=== PATIENT | male | born 1950 | race Two or more races ===

== ENCOUNTER 2016-07-08 06:22 | Day surgery (SDC) | payer MEDICAID ==
[~2016-07-08 06:22] MED LIST: Sodium Chloride 0.9% 1,000 ML IV SCH; Sodium Chloride 0.9% 10 ML Syringe FLUSH PRN; Sodium Chloride 0.9% 2.5 ML Syringe FLUSH PRN; ceFAZolin 1 GM in Premix Bag 1 BAG IV ONE
--- NOTE | 2016-07-08 06:56 | PCM.PREANE ---
Preanesthetic Assessment - Anesthesia/Transfusion/Family Hx Anesthesia History: Prior Anesthesia Without Reaction Family History of Anesthesia Reaction: No Transfusion History: No Prior Transfusion(s) Intubation History: Unknown - Review of Systems General: No Symptoms Pulmonary: No Symptoms Cardiovascular: No Symptoms Gastrointestinal: No symptoms Neurological: No Symptoms Other: Reports: None - Physical Assessment O2 Sat by Pulse Oximetry: 95 Respiratory Rate: 16 Vital Signs: Last Vital Signs Temp 37.0 C 07/08/16 06:42 Pulse 73 07/08/16 06:42 Resp 16 07/08/16 06:42 BP 155/76 H 07/08/16 06:42 Pulse Ox 95 07/08/16 06:42 Height: 1.7 m Weight: 91.626 kg ASA Class: 3 Mental Status: Alert & Oriented x3 Airway Class: Mallampati = 1 Dentition: Reports: Normal Dentition Thyro-Mental Finger Breadths: 3 Mouth Opening Finger Breadths: 3 ROM/Head Extension: Full Lungs: Clear to auscultation, Normal respiratory effort Cardiovascular: Regular Rate, Regular Rhythm - Allergies Allergies/Adverse Reactions: Allergies Allergy/AdvReac Type Severity Reaction Status Date / Time No Known Allergies Allergy Verified 07/03/16 14:46 - Blood Blood Available: No - Anesthesia Plan Pre-Op Medication Ordered: None - Acknowledgements Anesthesia Type Planned: MAC Pt an Appropriate Candidate for the Planned Anesthesia: Yes Alternatives and Risks of Anesthesia Discussed w Pt/Guardian: Yes Pt/Guardian Understands and Agrees with Anesthesia Plan: Yes PreAnesthesia Questionnaire Other HEENT History: wears glasses Cardiovascular History: Reports: Hypertension Respiratory History: Reports: None Gastrointestinal History: Reports: None Genitourinary History: Reports: Acute Renal Failure, Chronic Renal Insuffiency ( ESRD, using mature left arm brachio-cephalic fistula recently- here for removal of dialysis cath.) Musculoskeletal History: Reports: Fracture Other Musculoskeletal History: hx of fx right foot Neurological History: Reports: None Psychiatric History: Reports: None Endocrine/Metabolic History: Reports: Diabetes, Type I, Obesity/BMI 30+ Hematologic History: Reports: None Immunologic History: Reports: None Oncologic (Cancer) History: Reports: None Dermatologic History: Reports: None - Infectious Disease History Infectious Disease History: Reports: Chicken Pox, Mumps - Past Surgical History Head Surgeries/Procedures: Reports: None HEENT Surgical History: Reports: None Cardiovascular Surgical History: Reports: Other (See Below) Other Cardiovascular Surgeries/Procedures: Insertion of dialysis cathete and AV Shunt Respiratory Surgical History: Reports: None GI Surgical History: Reports: Appendectomy Male Surgical History: Reports: None Endocrine Surgical History: Reports: None Neurological Surgical History: Reports: None Musculoskeletal Surgical History: Reports: Shoulder Surgery Other Musculoskeletal Surgeries/Procedures:: right RTCR Oncologic Surgical History: Reports: None - SUBSTANCE USE Smoking Status *Q: Never Smoker Recreational Drug Use History: No - HOME MEDS Home Medications: Home Meds Insulin Aspart [NovoLOG] 12 units SQ ASDIRECTED 11/02/15 [History] Metoprolol Succinate [Toprol XL] 50 mg PO BID 11/02/15 [History] amLODIPine [Norvasc] 10 mg PO DAILY 11/02/15 [History] cloNIDine [Catapres] 1 tab PO BID 11/02/15 [History] Sevelamer Carbonate [Renvela] 1,600 mg PO TIDMEALS 07/03/16 [History] Tresiba Flex Touch SQ ASDIRECTED 07/03/16 [History] Zolpidem Tartrate 5 mg PO BEDTIME PRN 07/03/16 [History] - CURRENT (IN HOUSE) MEDS Current Meds: Current Medications Sodium Chloride (Normal Saline) 1,000 mls @ 75 mls/hr IV ASDIRECTED MARITA Sodium Chloride (Saline Flush) 10 ml FLUSH ASDIRECTED PRN PRN Reason: Keep Vein Open Sodium Chloride (Saline Flush) 2.5 ml FLUSH ASDIRECTED PRN PRN Reason: Keep Vein Open Discontinued Medications Cefazolin Sodium/Dextrose 1 gm (/ Premix) 50 mls @ 100 mls/hr IV ONETIME ONE Stop: 07/07/16 12:39
[2016-07-08] MEDS ORDERED: Propofol 200 MG/20 ML SDV ONE (07:18)
[2016-07-08] MEDS ORDERED: fentaNYL 100 MCG/2 ML SDV ONE (07:19)
[2016-07-08] MEDS ORDERED: Midazolam 1 MG/ML 2 ML SDV ONE (07:19)
[2016-07-08] MEDS ORDERED: Bupivacaine 0.5% 10 ML SDV ONE (07:20)
[2016-07-08] MEDS ORDERED: Lidocaine 1% 20 ML MDV ONE (07:20)
[2016-07-08] MEDS ORDERED: Dextrose 5% in Water 500 ML IV SCH (07:30)
--- NOTE | 2016-07-08 08:35 | PCM.OPNOTE ---
- General Post-Op/Procedure Note Date of Surgery/Procedure: 07/08/16 Operative Procedure(s): RIJ dialysis catheter removal Findings: RIJ dialysis catheter Pre Op Diagnosis: ESRD Post-Op Diagnosis: ESRD Anesthesia Technique: Local, MAC Primary Surgeon: Caroline Beatty EBL in mLs: 5 Condition: Good
[2016-07-08 09:16] VITALS: BP 136/70
--- NOTE | 2016-07-08 09:35 | PCM48HPAN ---
Post Anesthesia Note - EVALUATION WITHIN 48HRS OF ANESTHETIC Vital Signs in Normal Range: Yes Patient Participated in Evaluation: Yes Respiratory Function Stable: Yes Airway Patent: Yes Cardiovascular Function Stable: Yes Hydration Status Stable: Yes Pain Control Satisfactory: Yes Nausea and Vomiting Control Satisfactory: Yes Mental Status Recovered: Yes - COMMENTS/OBSERVATIONS Free Text/Narrative:: No anesthesia problems. Patient skipped recovery room postoperative care phase.
--- NOTE | 2016-07-08 12:38 | OR ---
SURGEON: KAITLIN DUMONT MD DATE OF PROCEDURE: 07/08/2016 PREOPERATIVE DIAGNOSIS: End-stage renal disease. POSTOPERATIVE DIAGNOSIS: End-stage renal disease. PROCEDURE PERFORMED: Right internal jugular dialysis catheter removal. ANESTHESIA: MAC, local. ESTIMATED BLOOD LOSS: 5 mL. FINDINGS: Intact right internal jugular dialysis catheter. COMPLICATIONS: None. INDICATIONS: The patient is a 65-year-old male with type 2 diabetes, and end-stage renal disease. He had previously had a right internal jugular dialysis catheter placed due to the need for dialysis access in an urgent setting. The patient now has a fistula that is working properly and no longer needs a dialysis catheter. The patient and I discussed the removal of this catheter in the operating room. We discussed the procedure, expected perioperative course as well as the risks including bleeding, infection, or damage to surrounding structures. The patient verbalized understanding and wishes to proceed. PROCEDURE IN DETAIL: The patient was brought to the operating room and placed on the OR table in the supine position. A time-out was completed verifying the patient's name, age, date of , allergies, and procedure to be performed. Monitored anesthesia care was induced. The right chest and neck were prepped and draped in usual standard fashion. The area around the catheter exit site on the chest wall was anesthetized with 1% lidocaine plain and 0.5% Marcaine plain. A 1 cm incision was made using a Metzenbaum scissors on the skin overlying the catheter. This allowed me to dissect down to the level of the cuff. The cuff had a thick scar capsule around it. Using sharp and blunt dissection, I was able to free this scar tissue up to mobilize the catheter. Gentle steady pressure was then applied to the catheter once it was free and the catheter was pulled out of the patient. Pressure was held at the right internal jugular vein insertion site for 5 minutes. The catheter was sent to pathology labeled as dialysis catheter. After 5 minutes, I likely able to pressure and no bleeding was noted. I debrided the edges of the wound sharply with the Metzenbaum scissors and hemostasis was achieved at the catheter site on the chest wall using cautery. The wound was packed with 0.25 inch iodoform gauze and 4x4s placed over the top. The sterile dressings were applied. All counts were complete and correct at the end of the case. The patient was taken to the PACU in stable condition. SAIRA / ONEAL DICKEY: 07/08/2016 08:33:34 /[id number]
[2016-07-08] MEDS ORDERED: fentaNYL 100 MCG/2 ML SDV IVPUSH PRN (13:25)
== END 2016-07-08 09:25 | disposition home or self-care (01) ==
LOC: MW.SDS 06:22
PROVIDERS: ATTEND Surgery
DX: E11.22 Type 2 diabetes mellitus with diabetic chronic kidney disease (principal); N18.6 End stage renal disease; Z99.2 Dependence on renal dialysis; Z79.899 Other long term (current) drug therapy; Z79.4 Long term (current) use of insulin
CPT/HCPCS: 36589; 82962; J0690; J2250; J3010; 00400; 88300; J2704

== ENCOUNTER 2016-08-06 06:43 | Emergency (ER) | payer MEDICAID ==
[2016-08-06] MEDS ORDERED: Sodium Chloride 0.9% 10 ML Syringe FLUSH PRN (07:02)
[2016-08-06] MEDS ORDERED: Aspirin 81 MG Tab.Chew PO ONE (07:02)
[2016-08-06] MEDS ORDERED: Sodium Chloride 0.9% 2.5 ML Syringe FLUSH PRN (07:02)
--- NOTE | 2016-08-06 07:05 | EDM.PDOC ---
ED HPI GENERAL MEDICAL PROBLEM - General Chief Complaint: Chest Pain Stated Complaint: CHEST PAINS Time Seen by Provider: 08/06/16 07:00 - History of Present Illness INITIAL COMMENTS - FREE TEXT/NARRATIVE: HISTORY AND PHYSICAL: History of present illness: The patient is a 65-year-old male with a history of hypertension diabetes and chronic renal failure who is on dialysis and does his dialysis Wednesday and Wednesday via a fistula in his left upper arm and presents with complaints of midsternal chest pain that started last evening. Patient states that he presented to dialysis and told them he was having chest pain and they referred him to the ER. The patient says he has a normal day yesterday with no systemic complaints and the discomfort started when he was at home trying to go to sleep. He was restless all night due to the discomfort and he describes it as a pressure pain midsternal nonradiating and not associated with diaphoresis shortness of breath nausea or abdominal pain. He has never had this discomfort before has no cardiac disease he is aware of. Is no social or family history. He did not taken medications prior to coming to the ER. He currently rates it as a 6/10 here in the ED and again it is nonradiating and midsternal pressure. The patient denies any upper respiratory symptoms and no recent trauma to the area. Please note that the patient did not do his dialysis run today as scheduled due to referral to the ED for chest pain. Review of systems: As per history of present illness and below otherwise all systems reviewed and negative. Past medical history: As per history of present illness and as reviewed below otherwise noncontributory. Surgical history: As per history of present illness and as reviewed below otherwise noncontributory. Social history: No reported history of drug or alcohol abuse. Family history: As per history of present illness and as reviewed below otherwise noncontributory. Physical exam: Gen.: Well-developed overweight male who is nontoxic and vital signs are noted by me. Speaking clearly and easily in the ED with no distress HEENT: Atraumatic, normocephalic, pupils reactive, negative for conjunctival pallor or scleral icterus, mucous membranes moist, throat clear, neck supple, nontender, trachea midline. Lungs: Clear to auscultation, breath sounds equal bilaterally, chest with tenderness in the midsternal area on palpation but no defects deformities or crepitus Heart: S1S2, regular, negative for clicks, rubs, or JVD. Abdomen: Soft, nondistended, nontender. Negative for masses or hepatosplenomegaly. Negative for costovertebral tenderness. Pelvis: Stable nontender. Genitourinary: Deferred. Rectal: Deferred. Extremities: Atraumatic, negative for cords or calf pain. Neurovascular unremarkable. The patient has a fistula in the left upper arm with a positive thrill. There is no pedal edema or leg asymmetry Neuro: Awake, alert, oriented. Cranial nerves II through XII unremarkable. Cerebellum unremarkable. Motor and sensory unremarkable throughout. Exam nonfocal. Diagnostics: EKG x 2 CBC CMP INR troponin x 2 chest x-ray Therapeutics: IV O2 monitor aspirin sublingual nitroglycerin and Nitropaste, morphine Toradol DuoNeb After nitroglycerin sublingual 3 the patient tells me that the pain is a 5/10 when earlier was a 6/10. He told nursing that when he arrived the pain was an 8/ 10 we'll proceed with trying morphine and Toradol and reevaluate Nursing felt that the patient was having some discomfort with taking a deep breath so a duo neb was given. Patient does state that when I palpate the entire anterior chest wall there is discomfort and reproduces some of the pressure pain that he is experiencing. The patient is vague about his pain scale both with nursing and me and it is difficult to assess this. He is aware that we need to transfer him due to his need for dialysis to [facility] as we are unable to do inpatient dialysis and he is comfortable with that plan. 0818: I discussed the case with Dr. Villalta at [facility] who accepts the patient for transfer. He is aware that the patient is being transferred because he needs dialysis which we cannot perform. I have repeated an EKG and it is unchanged from prior and I will repeat a second troponin prior to the patient's departure. I have discussed the patient's vagueness with his chest pain with Dr. Villalta and have specifically discussed with him medications for transfer and he does not want me to start a nitro drip and wants only the Nitropaste that I have placed. I discussed again with the patient the need for transfer and he is accepting of this. Currently at my discussion with him he says that his pain is barely there and he is able to breathe much better and feels significantly improved from when he came in. Again he is very vague but I feel comfortable with this care plan for transfer. Impression: Chest pain rule out acute coronary syndrome, chronic renal failure on hemodialysis Definitive disposition and diagnosis as appropriate pending reevaluation and review of above. Chest Pain Score (Numeric/FACES): 7 - Related Data Allergies Allergy/AdvReac Type Severity Reaction Status Date / Time No Known Allergies Allergy Verified 08/06/16 06:53 Home Meds: Home Meds Insulin Aspart [NovoLOG] 12 units SQ ASDIRECTED 11/02/15 [History] Metoprolol Succinate [Toprol XL] 50 mg PO BID 11/02/15 [History] amLODIPine [Norvasc] 10 mg PO DAILY 11/02/15 [History] cloNIDine [Catapres] 0.1 mg PO BID 11/02/15 [History] Tresiba Flex Touch 40 units SQ BEDTIME 07/03/16 [History] Past Medical History - Past Health History Medical/Surgical History: Denies Medical/Surgical History Other HEENT History: wears glasses Cardiovascular History: Reports: Hypertension Respiratory History: Reports: None Gastrointestinal History: Reports: None Genitourinary History: Reports: Acute Renal Failure, Chronic Renal Insuffiency Musculoskeletal History: Reports: Fracture Other Musculoskeletal History: hx of fx right foot Neurological History: Reports: None Psychiatric History: Reports: None Endocrine/Metabolic History: Reports: Diabetes, Type I, Obesity/BMI 30+ Hematologic History: Reports: None Immunologic History: Reports: None Oncologic (Cancer) History: Reports: None Dermatologic History: Reports: None - Infectious Disease History Infectious Disease History: Reports: Chicken Pox, Mumps - Past Surgical History Head Surgeries/Procedures: Reports: None HEENT Surgical History: Reports: None Cardiovascular Surgical History: Reports: Other (See Below) Other Cardiovascular Surgeries/Procedures: Insertion of dialysis cathete and AV Shunt Respiratory Surgical History: Reports: None GI Surgical History: Reports: Appendectomy Male Surgical History: Reports: None Endocrine Surgical History: Reports: None Neurological Surgical History: Reports: None Musculoskeletal Surgical History: Reports: Shoulder Surgery Other Musculoskeletal Surgeries/Procedures:: right RTCR Oncologic Surgical History: Reports: None Social & Family History - Family History Family Medical History: Noncontributory - Tobacco Use Smoking Status *Q: Never Smoker Second Hand Smoke Exposure: No - Caffeine Use Caffeine Use: Reports: None - Recreational Drug Use Recreational Drug Use: No Drug Use in Last 12 Months: No ED ROS GENERAL - Review of Systems Review Of Systems: ROS reveals no pertinent complaints other than HPI. ED EXAM, GENERAL - Physical Exam Exam: See Below (See dictation) Course - Vital Signs Last Recorded V/S: Last Vital Signs Temp 36.4 C 08/06/16 07:56 Pulse 66 08/06/16 07:56 Resp 22 H 08/06/16 07:56 BP 146/81 H 08/06/16 07:56 Pulse Ox 98 08/06/16 07:56 - Orders/Labs/Meds Orders: Active Orders 24 hr Category Date Time Status Cardiac Monitoring [RC] . DIRECTED Care 08/06/16 07:01 Active EKG 12 Lead [EKG Documentation Completion] [RC] STAT Care 08/06/16 06:54 Active EKG Documentation Completion [RC] STAT Care 08/06/16 08:16 Active Oxygen Therapy, ED [RC] ASDIRECTED Care 08/06/16 07:01 Active Pulse Oximetry [RC] ASDIRECTED Care 08/06/16 07:01 Active RT Aerosol Therapy [RC] ASDIRECTED Care 08/06/16 07:51 Active Chest 1V Frontal [CR] Stat Exams 08/06/16 07:02 Taken Sodium Chloride 0.9% [Saline Flush] Med 08/06/16 07:02 Active 10 ml FLUSH ASDIRECTED PRN Sodium Chloride 0.9% [Saline Flush] Med 08/06/16 07:02 Active 2.5 ml FLUSH ASDIRECTED PRN Saline Lock Insert [OM.PC] Stat Oth 08/06/16 07:01 Ordered Medication Orders Sodium Chloride (Saline Flush) 10 ml FLUSH ASDIRECTED PRN PRN Reason: Keep Vein Open Sodium Chloride (Saline Flush) 2.5 ml FLUSH ASDIRECTED PRN PRN Reason: Keep Vein Open Labs: Laboratory Tests 08/06/16 08/06/16 08/06/16 Range/Units 06:50 06:50 06:50 WBC 10.05 (4.0-11.0) K/uL RBC 3.19 L (4.50-5.90) M/uL Hgb 9.8 L (13.0-17.0) g/dL Hct 29.0 L (38.0-50.0) % MCV 90.9 (80.0-98.0) fL MCH 30.7 (27.0-32.0) pg MCHC 33.8 (31.0-37.0) g/dL RDW Std Deviation 45.0 (28.0-62.0) fl RDW Coeff of Robert 14 (11.0-15.0) % Plt Count 233 (150-400) K/uL MPV 10.40 (7.40-12.00) fL Neut % (Auto) 69.4 (48.0-80.0) % Lymph % (Auto) 17.1 (16.0-40.0) % [place] % (Auto) 9.5 (0.0-15.0) % Eos % (Auto) 3.4 (0.0-7.0) % Baso % (Auto) 0.6 (0.0-1.5) % Neut # (Auto) 7.0 H (1.4-5.7) K/uL Lymph # (Auto) 1.7 (0.6-2.4) K/uL [place] # (Auto) 1.0 H (0.0-0.8) K/uL Eos # (Auto) 0.3 (0.0-0.7) K/uL Baso # (Auto) 0.1 (0.0-0.1) K/uL Nucleated RBC % 0.0 /100WBC Nucleated RBCs # 0 K/uL INR 1.05 (0.86-1.11) Sodium 142 (136-146) mmol/L Potassium 5.1 (3.5-5.1) mmol/L Chloride 107 (98-110) mmol/L Carbon Dioxide 22 (21-31) mmol/L BUN 54 H (6.0-23.0) mg/dL Creatinine 10.8 H (0.6-1.5) mg/dL Est Cr Clr Drug Dosing 6.55 mL/min Estimated GFR (MDRD) 4.8 ml/min Glucose 78 (60-110) mg/dL Calcium 7.9 L (8.8-10.8) mg/dL Total Bilirubin 0.5 (0.1-1.5) mg/dL AST 10 (5-40) IU/L ALT 8 (8-54) IU/L Alkaline Phosphatase 72 (40-150) Troponin I (0.0-0.29) NG/ML Total Protein 6.5 (6.0-8.0) g/dL Albumin 3.4 (3.4-4.8) g/dL Globulin 3.1 (2.0-3.5) g/dL Albumin/Globulin Ratio 1.1 L (1.3-2.8) 08/06/16 Range/Units 06:50 WBC (4.0-11.0) K/uL RBC (4.50-5.90) M/uL Hgb (13.0-17.0) g/dL Hct (38.0-50.0) % MCV (80.0-98.0) fL MCH (27.0-32.0) pg MCHC (31.0-37.0) g/dL RDW Std Deviation (28.0-62.0) fl RDW Coeff of Robert (11.0-15.0) % Plt Count (150-400) K/uL MPV (7.40-12.00) fL Neut % (Auto) (48.0-80.0) % Lymph % (Auto) (16.0-40.0) % [place] % (Auto) (0.0-15.0) % Eos % (Auto) (0.0-7.0) % Baso % (Auto) (0.0-1.5) % Neut # (Auto) (1.4-5.7) K/uL Lymph # (Auto) (0.6-2.4) K/uL [place] # (Auto) (0.0-0.8) K/uL Eos # (Auto) (0.0-0.7) K/uL Baso # (Auto) (0.0-0.1) K/uL Nucleated RBC % /100WBC Nucleated RBCs # K/uL INR (0.86-1.11) Sodium (136-146) mmol/L Potassium (3.5-5.1) mmol/L Chloride (98-110) mmol/L Carbon Dioxide (21-31) mmol/L BUN (6.0-23.0) mg/dL Creatinine (0.6-1.5) mg/dL Est Cr Clr Drug Dosing mL/min Estimated GFR (MDRD) ml/min Glucose (60-110) mg/dL Calcium (8.8-10.8) mg/dL Total Bilirubin (0.1-1.5) mg/dL AST (5-40) IU/L ALT (8-54) IU/L Alkaline Phosphatase (40-150) Troponin I < 0.10 (0.0-0.29) NG/ML Total Protein (6.0-8.0) g/dL Albumin (3.4-4.8) g/dL Globulin (2.0-3.5) g/dL Albumin/Globulin Ratio (1.3-2.8) Meds: Medications Generic Name Dose Route Start Last Admin Trade Name Freq PRN Reason Stop Dose Admin Sodium Chloride 10 ml 08/06/16 07:02 Saline Flush FLUSH ASDIRECTED PRN Keep Vein Open Sodium Chloride 2.5 ml 08/06/16 07:02 Saline Flush FLUSH ASDIRECTED PRN Keep Vein Open Discontinued Medications Generic Name Dose Route Start Last Admin Trade Name Freq PRN Reason Stop Dose Admin Albuterol/Ipratropium 3 ml 08/06/16 07:51 08/06/16 07:56 Duoneb 3.0-0.5 Mg/3 Ml NEB 08/06/16 07:52 3 ml ONETIME ONE Administration Aspirin 324 mg 08/06/16 07:02 08/06/16 07:09 Aspirin PO 08/06/16 07:03 324 mg ONETIME ONE Administration Ketorolac Tromethamine 30 mg 08/06/16 07:34 08/06/16 07:43 Toradol IVPUSH 08/06/16 07:35 30 mg ONETIME ONE Administration Morphine Sulfate 4 mg 08/06/16 07:34 08/06/16 07:48 Morphine IVPUSH 08/06/16 07:35 2 mg ONETIME ONE Administration Nitroglycerin 0.4 mg 08/06/16 07:15 08/06/16 07:19 Nitrostat SL 08/06/16 07:26 0.4 mg Q5M MARITA Administration Nitroglycerin 1 gm 08/06/16 07:34 08/06/16 07:54 Nitro-Bid 2% TOP 08/06/16 07:35 1 gm ONETIME ONE Administration Departure - Departure Time of Disposition: 08:30 Disposition: DC/Tfer to Acute Hospital 02 Condition: Good Clinical Impression: Acute coronary syndrome, Patient requiring acute dialysis - Discharge Information Forms: ED Department Discharge - My Orders Last 24 Hours: My Active Orders 08/06/16 07:01 Cardiac Monitoring [RC] . DIRECTED Oxygen Therapy, ED [RC] ASDIRECTED Pulse Oximetry [RC] ASDIRECTED Saline Lock Insert [OM.PC] Stat 08/06/16 07:02 Chest 1V Frontal [CR] Stat Sodium Chloride 0.9% [Saline Flush] 10 ml FLUSH ASDIRECTED PRN Sodium Chloride 0.9% [Saline Flush] 2.5 ml FLUSH ASDIRECTED PRN 08/06/16 07:51 RT Aerosol Therapy [RC] ASDIRECTED 08/06/16 08:16 EKG Documentation Completion [RC] STAT - Assessment/Plan Last 24 Hours: My Active Orders 08/06/16 07:01 Cardiac Monitoring [RC] . DIRECTED Oxygen Therapy, ED [RC] ASDIRECTED Pulse Oximetry [RC] ASDIRECTED Saline Lock Insert [OM.PC] Stat 08/06/16 07:02 Chest 1V Frontal [CR] Stat Sodium Chloride 0.9% [Saline Flush] 10 ml FLUSH ASDIRECTED PRN Sodium Chloride 0.9% [Saline Flush] 2.5 ml FLUSH ASDIRECTED PRN 08/06/16 07:51 RT Aerosol Therapy [RC] ASDIRECTED 08/06/16 08:16 EKG Documentation Completion [RC] STAT
[2016-08-06] MEDS: Nitroglycerin 0.4 MG Tab.SL SL SCH ×3 (07:09→07:19)
[2016-08-06] MEDS ORDERED: Nitroglycerin 2% Oint 1 GM UD Packet TOP ONE (07:34)
[2016-08-06] MEDS ORDERED: Morphine 2 MG/ML Syringe IVPUSH ONE (07:34)
[2016-08-06] MEDS ORDERED: Ketorolac 30 MG/ML SDV IVPUSH ONE (07:34)
[2016-08-06] MEDS ORDERED: Albuterol/Ipratropium 3.0-0.5 MG/3 ML Neb Soln NEB ONE (07:51)
[2016-08-06 11:57] VITALS: BP 128/80
--- NOTE | 2016-08-06 12:21 | CR ---
EXAM DATE: 08/06/16 PATIENT'S AGE: 65 Patient: STEPHANIE RAHMAN Facility: [place], [place] Site . Site : 1950 Study: XRay Chest [id number]/22/2017 7:20:23 AM Ordering Physician: Marvin Diez Final Report: INDICATION: Chest pain. Technique: AP portable chest x-ray. Findings: Mild interstitial prominence in the lungs could be related to interstitial edema or minimal fibrosis. Small amount of fluid tracking along a fissure in the right infrahilar region. Linear opacity in the left perihilar region could be related to platelike atelectasis or scarring. Increased opacity in the right infrahilar region could be related atelectasis or other focal pulmonary opacity. Mild pulmonary venous congestion. No obvious pleural effusions. Heart size is within normal limits for AP portable technique. Chest otherwise unremarkable. Dictated by Geoffrey Miller MD @ Aug 06 2016 7:39AM (Electronic Signature) Report Signed by Proxy. HILARIO
== END 2016-08-06 09:48 ==
LOC: MW.ED 06:43
DX: I24.9 Acute ischemic heart disease, unspecified (principal); I12.9 Hypertensive chronic kidney disease with stage 1 through stage 4 chronic kidney disease, or unspecified chronic kidney disease; E10.22 Type 1 diabetes mellitus with diabetic chronic kidney disease; N18.9 Chronic kidney disease, unspecified; E66.9 Obesity, unspecified; Z99.2 Dependence on renal dialysis; Z90.49 Acquired absence of other specified parts of digestive tract; Z98.890 Other specified postprocedural states; Z79.899 Other long term (current) drug therapy
CPT/HCPCS: 36415; 71010; 80053; 84484; 85025; 85610; 93005; 94664; 96374; 96375; 99285; A9270; J1885; J2270

== ENCOUNTER 2016-11-09 22:18 | Emergency (ER) | payer MEDICAID, MEDICARE ==
[2016-11-09] MEDS ORDERED: Albuterol/Ipratropium 3.0-0.5 MG/3 ML Neb Soln NEB ONE (22:19)
[2016-11-09] MEDS ORDERED: methylPREDNISolone Sodium Succinate 125 MG/2 ML SDV IVPUSH ONE (22:19)
[2016-11-09] MEDS ORDERED: Piperacillin/Tazobactam 2.25 GM in Sodium Chloride 0.9% 50 ML IV ONE (22:22)
--- NOTE | 2016-11-09 22:25 | EDM.PDOC ---
ED HPI GENERAL MEDICAL PROBLEM - General Stated Complaint: COUGH/CONGESTION/SOB/CHEST PAIN Time Seen by Provider: 11/09/16 22:24 Source of Information: Reports: Patient - History of Present Illness INITIAL COMMENTS - FREE TEXT/NARRATIVE: HISTORY AND PHYSICAL: History of present illness: []Patient presents via EMS with chest pain and fever As a history of chronic renal failure on dialysis his last dialysis was , he did miss his Wednesday dialysis appointment and is due again tomorrow morning He also has a history of frequent pneumonias, EMS had provided aspirin and one nitroglycerin that had no benefit as well as provided 100 g of fentanyl prior to arrival Patient presents with fever and rigors coarse lung sounds with crackles at base and wheeze ; he is provided for DuoNeb and Solu-Medrol with improvement patient is in no distress at this time Currently denies chest pain shortness breath headache dizziness palpitation no bowel or urine symptoms Review of systems: As per history of present illness and below otherwise all systems reviewed and negative. Past medical history: As per history of present illness and as reviewed below otherwise noncontributory. Surgical history: As per history of present illness and as reviewed below otherwise noncontributory. Social history: No reported history of drug or alcohol abuse. Family history: As per history of present illness and as reviewed below otherwise noncontributory. Physical exam: HEENT: Atraumatic, normocephalic, pupils reactive, negative for conjunctival pallor or scleral icterus, mucous membranes moist, throat clear, neck supple, nontender, trachea midline. Lungs: Clear to auscultation, breath sounds equal bilaterally, chest nontender. Heart: S1S2, regular, negative for clicks, rubs, or JVD. Abdomen: Soft, nondistended, nontender. Negative for masses or hepatosplenomegaly. Negative for costovertebral tenderness. Pelvis: Stable nontender. Genitourinary: Deferred. Rectal: Deferred. Extremities: Atraumatic, negative for cords or calf pain. Neurovascular unremarkable. Neuro: Awake, alert, oriented. Cranial nerves II through XII unremarkable. Cerebellum unremarkable. Motor and sensory unremarkable throughout. Exam nonfocal. Diagnostics: []Lab as below EKG Chest 1 view Therapeutics: []Normal saline 1 25 mL per hour DuoNeb Solu-Medrol 125 mg IV Calcium gluconate Lasix 20 mg IV Zosyn 2.25 g IV EMS had provided aspirin/nitroglycerin no benefit Patient requires dialysis as above, he'll be transferred to [facility] for inpatient dialysis and continued treatment of pneumonia, Dr. Peralta is the accepting physician Transferred by ground unit Impression: Right-sided pneumonia []Fever Shortness breath/wheeze Renal failure on dialysis last dialysis due again in the a.m. Hyperkalemia Definitive disposition and diagnosis as appropriate pending reevaluation and review of above. Chest Pain Score (Numeric/FACES): 8 - Related Data Allergies Allergy/AdvReac Type Severity Reaction Status Date / Time No Known Allergies Allergy Verified 11/09/16 22:49 Home Meds: Home Meds Calcium Acetate [PhosLo] 2 cap PO TIDAC 11/09/16 [History] FLUoxetine [PROzac] 10 mg PO DAILY 11/09/16 [History] Gabapentin [Neurontin] 100 mg PO BID 11/09/16 [History] Insulin Degludec [Tresiba Flextouch U-100] 30 units SQ DAILY 11/09/16 [History] LORazepam 0.5 mg PO BID PRN 11/09/16 [History] Metoprolol Tartrate [Lopressor] 50 mg PO BID 11/09/16 [History] Zolpidem [Ambien] 5 mg PO BEDTIME 11/09/16 [History] amLODIPine [Norvasc] 10 mg PO BID 11/09/16 [History] cloNIDine [Catapres] 0.1 mg PO BID 11/09/16 [History] Past Medical History - Past Health History Medical/Surgical History: Denies Medical/Surgical History Other HEENT History: wears glasses Cardiovascular History: Reports: Hypertension Respiratory History: Reports: None Gastrointestinal History: Reports: None Genitourinary History: Reports: Acute Renal Failure, Chronic Renal Insuffiency Musculoskeletal History: Reports: Fracture Other Musculoskeletal History: hx of fx right foot Neurological History: Reports: None Psychiatric History: Reports: None Endocrine/Metabolic History: Reports: Diabetes, Type I, Obesity/BMI 30+ Hematologic History: Reports: None Immunologic History: Reports: None Oncologic (Cancer) History: Reports: None Dermatologic History: Reports: None - Infectious Disease History Infectious Disease History: Reports: Chicken Pox, Mumps - Past Surgical History Head Surgeries/Procedures: Reports: None HEENT Surgical History: Reports: None Cardiovascular Surgical History: Reports: Other (See Below) Other Cardiovascular Surgeries/Procedures: Insertion of dialysis cathete and AV Shunt Respiratory Surgical History: Reports: None GI Surgical History: Reports: Appendectomy Male Surgical History: Reports: None Endocrine Surgical History: Reports: None Neurological Surgical History: Reports: None Musculoskeletal Surgical History: Reports: Shoulder Surgery Other Musculoskeletal Surgeries/Procedures:: right RTCR Oncologic Surgical History: Reports: None Social & Family History - Family History Family Medical History: Noncontributory - Tobacco Use Smoking Status *Q: Never Smoker Second Hand Smoke Exposure: No - Caffeine Use Caffeine Use: Reports: None - Recreational Drug Use Recreational Drug Use: No Drug Use in Last 12 Months: No ED ROS GENERAL - Review of Systems Review Of Systems: ROS reveals no pertinent complaints other than HPI. ED EXAM, GENERAL - Physical Exam Exam: See Below Course - Vital Signs Last Recorded V/S: Last Vital Signs Temp 37.8 C 11/09/16 22:18 Pulse 110 H 11/09/16 22:18 Resp 25 H 11/09/16 22:18 BP 208/92 H 11/09/16 22:18 Pulse Ox 96 11/09/16 22:18 - Orders/Labs/Meds Orders: Active Orders 24 hr Category Date Time Status RT Aerosol Therapy [RC] ASDIRECTED Care 11/09/16 22:19 Active Chest 1V Frontal [CR] Stat Exams 11/09/16 22:22 Taken CULTURE BLOOD [BC] Stat Lab 11/09/16 22:35 Received CULTURE BLOOD [BC] Stat Lab 11/09/16 22:41 Received Sodium Chloride 0.9% [Normal Saline] 1,000 ml Med 11/09/16 22:30 Active IV STAT Blood Culture x2 Reflex Set [OM.PC] Stat Oth 11/09/16 22:23 Ordered Medication Orders Sodium Chloride (Normal Saline) 1,000 mls @ 125 mls/hr IV STAT MARITA Last Admin: 11/09/16 22:45 Dose: 125 mls/hr Labs: Laboratory Tests 11/09/16 11/09/16 11/09/16 Range/Units 22:35 22:35 22:35 WBC 14.99 H (4.0-11.0) K/uL RBC 3.27 L (4.50-5.90) M/uL Hgb 10.1 L (13.0-17.0) g/dL Hct 30.5 L (38.0-50.0) % MCV 93.3 (80.0-98.0) fL MCH 30.9 (27.0-32.0) pg MCHC 33.1 (31.0-37.0) g/dL RDW Std Deviation 47.8 (28.0-62.0) fl RDW Coeff of Robert 14 (11.0-15.0) % Plt Count 239 (150-400) K/uL MPV 10.70 (7.40-12.00) fL Neut % (Auto) 77.3 (48.0-80.0) % Lymph % (Auto) 11.7 L (16.0-40.0) % [place] % (Auto) 8.5 (0.0-15.0) % Eos % (Auto) 2.2 (0.0-7.0) % Baso % (Auto) 0.3 (0.0-1.5) % Neut # (Auto) 11.6 H (1.4-5.7) K/uL Lymph # (Auto) 1.8 (0.6-2.4) K/uL [place] # (Auto) 1.3 H (0.0-0.8) K/uL Eos # (Auto) 0.3 (0.0-0.7) K/uL Baso # (Auto) 0.1 (0.0-0.1) K/uL Nucleated RBC % 0.0 /100WBC Nucleated RBCs # 0 K/uL INR 1.03 (0.86-1.11) Sodium 142 (136-146) mmol/L Potassium 6.9 H (3.5-5.1) mmol/L Chloride 109 (98-110) mmol/L Carbon Dioxide 17 L (21-31) mmol/L BUN 93 H (6.0-23.0) mg/dL Creatinine 14.1 H (0.6-1.5) mg/dL Est Cr Clr Drug Dosing 4.95 mL/min Estimated GFR (MDRD) 3.5 ml/min Glucose 81 (60-110) mg/dL Calcium 8.4 L (8.8-10.8) mg/dL Total Bilirubin 0.5 (0.1-1.5) mg/dL AST 13 (5-40) IU/L ALT 10 (8-54) IU/L Alkaline Phosphatase 68 (40-150) Troponin I (0.0-0.29) NG/ML Total Protein 7.0 (6.0-8.0) g/dL Albumin 3.8 (3.4-4.8) g/dL Globulin 3.2 (2.0-3.5) g/dL Albumin/Globulin Ratio 1.2 L (1.3-2.8) Urine Color Urine Appearance Urine pH (5.0-8.0) Ur Specific Rien[place] (1.001-1.035) Urine Protein (NEGATIVE) mg/dL Urine Glucose (UA) (NEGATIVE) mg/dL Urine Ketones (NEGATIVE) mg/dL Urine Occult Blood (NEGATIVE) Urine Nitrite (NEGATIVE) Urine Bilirubin (NEGATIVE) Urine Urobilinogen (<2.0) EU/dL Ur Leukocyte Esterase (NEGATIVE) Urine RBC (0-2/HPF) Urine WBC (0-5/HPF) Ur Epithelial Cells (NONE-FEW) Urine Bacteria (NEGATIVE) 11/09/16 11/09/16 Range/Units 22:35 22:58 WBC (4.0-11.0) K/uL RBC (4.50-5.90) M/uL Hgb (13.0-17.0) g/dL Hct (38.0-50.0) % MCV (80.0-98.0) fL MCH (27.0-32.0) pg MCHC (31.0-37.0) g/dL RDW Std Deviation (28.0-62.0) fl RDW Coeff of Robert (11.0-15.0) % Plt Count (150-400) K/uL MPV (7.40-12.00) fL Neut % (Auto) (48.0-80.0) % Lymph % (Auto) (16.0-40.0) % [place] % (Auto) (0.0-15.0) % Eos % (Auto) (0.0-7.0) % Baso % (Auto) (0.0-1.5) % Neut # (Auto) (1.4-5.7) K/uL Lymph # (Auto) (0.6-2.4) K/uL [place] # (Auto) (0.0-0.8) K/uL Eos # (Auto) (0.0-0.7) K/uL Baso # (Auto) (0.0-0.1) K/uL Nucleated RBC % /100WBC Nucleated RBCs # K/uL INR (0.86-1.11) Sodium (136-146) mmol/L Potassium (3.5-5.1) mmol/L Chloride (98-110) mmol/L Carbon Dioxide (21-31) mmol/L BUN (6.0-23.0) mg/dL Creatinine (0.6-1.5) mg/dL Est Cr Clr Drug Dosing mL/min Estimated GFR (MDRD) ml/min Glucose (60-110) mg/dL Calcium (8.8-10.8) mg/dL Total Bilirubin (0.1-1.5) mg/dL AST (5-40) IU/L ALT (8-54) IU/L Alkaline Phosphatase (40-150) Troponin I < 0.10 (0.0-0.29) NG/ML Total Protein (6.0-8.0) g/dL Albumin (3.4-4.8) g/dL Globulin (2.0-3.5) g/dL Albumin/Globulin Ratio (1.3-2.8) Urine Color YELLOW Urine Appearance CLEAR Urine pH 7.0 (5.0-8.0) Ur Specific R[place] 1.020 (1.001-1.035) Urine Protein >=300 (NEGATIVE) mg/dL Urine Glucose (UA) 250 H (NEGATIVE) mg/dL Urine Ketones NEGATIVE (NEGATIVE) mg/dL Urine Occult Blood MODERATE (NEGATIVE) Urine Nitrite NEGATIVE (NEGATIVE) Urine Bilirubin NEGATIVE (NEGATIVE) Urine Urobilinogen 0.2 (<2.0) EU/dL Ur Leukocyte Esterase NEGATIVE (NEGATIVE) Urine RBC 5-8 (0-2/HPF) Urine WBC 0-2 (0-5/HPF) Ur Epithelial Cells RARE (NONE-FEW) Urine Bacteria FEW (NEGATIVE) Meds: Medications Generic Name Dose Route Start Last Admin Trade Name Freq PRN Reason Stop Dose Admin Sodium Chloride 1,000 mls @ 125 mls/hr 11/09/16 22:30 11/09/16 22:45 Normal Saline IV 125 mls/hr STAT MARITA Administration Discontinued Medications Generic Name Dose Route Start Last Admin Trade Name Kathrine PRN Reason Stop Dose Admin Albuterol/Ipratropium 3 ml 11/09/16 22:19 11/09/16 22:26 Duoneb 3.0-0.5 Mg/3 Ml NEB 11/09/16 22:20 3 ml ONETIME ONE Administration Calcium Gluconate 1 gm 11/09/16 23:18 11/09/16 23:32 Calcium Gluconate IVPUSH 11/09/16 23:19 1 gm ONETIME ONE Administration Furosemide 20 mg 11/09/16 23:15 11/09/16 23:32 Lasix IVPUSH 11/09/16 23:16 20 mg NOW ONE Administration Piperacillin Sod/Tazobactam 50 mls @ 100 mls/hr 11/09/16 22:22 11/09/16 22:45 Sod 2.25 gm/ Sodium Chloride IV 11/09/16 22:51 100 mls/hr ONETIME ONE Administration Methylprednisolone Sodium Succinate 125 mg 11/09/16 22:19 11/09/16 22:26 Solu-Medrol IVPUSH 11/09/16 22:20 125 mg ONETIME ONE Administration Departure - Departure Time of Disposition: 23:41 Disposition: DC/Tfer to Other 70 Condition: Poor Clinical Impression: Pneumonia, End stage renal disease - Discharge Information Referrals: PCP,None [Primary Care Provider] - - My Orders Last 24 Hours: My Active Orders 11/09/16 22:19 RT Aerosol Therapy [RC] ASDIRECTED 11/09/16 22:22 Chest 1V Frontal [CR] Stat 11/09/16 22:23 Blood Culture x2 Reflex Set [OM.PC] Stat 11/09/16 22:30 Sodium Chloride 0.9% [Normal Saline] 1,000 ml IV STAT 11/09/16 22:35 CULTURE BLOOD [BC] Stat 11/09/16 22:41 CULTURE BLOOD [BC] Stat - Assessment/Plan Last 24 Hours: My Active Orders 11/09/16 22:19 RT Aerosol Therapy [RC] ASDIRECTED 11/09/16 22:22 Chest 1V Frontal [CR] Stat 11/09/16 22:23 Blood Culture x2 Reflex Set [OM.PC] Stat 11/09/16 22:30 Sodium Chloride 0.9% [Normal Saline] 1,000 ml IV STAT 11/09/16 22:35 CULTURE BLOOD [BC] Stat 11/09/16 22:41 CULTURE BLOOD [BC] Stat
[2016-11-09] MEDS ORDERED: Sodium Chloride 0.9% 1,000 ML IV SCH (22:30)
[2016-11-09] MEDS ORDERED: Furosemide 40 MG/4 ML VIAL IVPUSH ONE (23:15)
[2016-11-09] MEDS ORDERED: Calcium Gluconate 10% 1 GM/10 ML SDV IVPUSH ONE (23:18)
[2016-11-10 00:39] VITALS: BP 187/85
--- NOTE | 2016-11-10 10:25 | CR ---
EXAM DATE: 11/09/16 PATIENT'S AGE: 66 Patient: STEPHANIE RAHMAN Facility: [place], [place] Site . Site : 1950 Study: XRay Chest [id number]/25/2017 10:46:18 PM Ordering Physician: Juancarlos Sotelo Final Report: INDICATION: fever, SOB TECHNIQUE: Chest 1 view. COMPARISON: 08/06/16 FINDINGS: Cardiovascular and mediastinum: Heart size and vasculature are normal in caliber and appearance. Mediastinum is within normal limits. Lungs and pleural space: Lungs are clear. No sign of infiltrate or mass. No sign of pleural effusion. No pneumothorax. Bones and soft tissues: No significant findings. IMPRESSION: Unremarkable chest. Dictated by: Alejo Doherty MD @ 11/09/2016 23:44:31 (Electronic Signature) Report Signed by Proxy. [facility]
== END 2016-11-10 00:18 | disposition other institution (70) ==
LOC: MW.ED 22:18
DX: J18.9 Pneumonia, unspecified organism (principal); E87.5 Hyperkalemia; I12.0 Hypertensive chronic kidney disease with stage 5 chronic kidney disease or end stage renal disease; E10.22 Type 1 diabetes mellitus with diabetic chronic kidney disease; N18.6 End stage renal disease; Z99.2 Dependence on renal dialysis; E66.9 Obesity, unspecified; Z79.4 Long term (current) use of insulin; Z79.899 Other long term (current) drug therapy; Z90.49 Acquired absence of other specified parts of digestive tract; Z98.890 Other specified postprocedural states; Z68.34 Body mass index [BMI] 34.0-34.9, adult
CPT/HCPCS: 36415; 71010; 80053; 81001; 84484; 85025; 85610; 87040; 87804; 93005; 96361; 96365; 96375; 99285; J0610; J1940; J2543; J2930; J7040; J7050; 99283

== ENCOUNTER 2016-11-14 06:18 | Emergency (ER) | payer MEDICAID, MEDICARE ==
[2016-11-14] MEDS: Ketorolac 60 MG/2 ML SDV IM ONE ×2 (06:52→06:55)
--- NOTE | 2016-11-14 06:53 | EDM.PDOC ---
<Deepak Jefferson - Last Filed: 11/14/16 06:55> ED HPI GENERAL MEDICAL PROBLEM - General Chief Complaint: Lower Extremity Injury/Pain Stated Complaint: PAIN IN RIGHT LEG; DIALYSIS PT Time Seen by Provider: 11/14/16 06:51 Source of Information: Reports: Patient - History of Present Illness INITIAL COMMENTS - FREE TEXT/NARRATIVE: HISTORY AND PHYSICAL: History of present illness: []Patient presents with right hip pain radiating down the right lower extremity to the foot. pain which began acutely at 2 AM. 7 out of 10 radiating to the foot Denies foot drop saddle anesthesia bowel or urine symptoms Note the patient was in recently he is on dialysis transferred to my note for pneumonia and cardiac rule out he has follow-up scheduled with cardiology early next week Denies any injury or trauma no fever nausea vomiting chills sweats Review of systems: As per history of present illness and below otherwise all systems reviewed and negative. Past medical history: As per history of present illness and as reviewed below otherwise noncontributory. Surgical history: As per history of present illness and as reviewed below otherwise noncontributory. Social history: No reported history of drug or alcohol abuse. Family history: As per history of present illness and as reviewed below otherwise noncontributory. Physical exam: HEENT: Atraumatic, normocephalic, pupils reactive, negative for conjunctival pallor or scleral icterus, mucous membranes moist, throat clear, neck supple, nontender, trachea midline. Lungs: Clear to auscultation, breath sounds equal bilaterally, chest nontender. Heart: S1S2, regular, negative for clicks, rubs, or JVD. Abdomen: Soft, nondistended, nontender. Negative for masses or hepatosplenomegaly. Negative for costovertebral tenderness. Pelvis: Stable nontender. Genitourinary: Deferred. Rectal: Deferred. Extremities: Atraumatic, negative for cords or calf pain. Neurovascular unremarkable. Neuro: Awake, alert, oriented. Cranial nerves II through XII unremarkable. Cerebellum unremarkable. Motor and sensory unremarkable throughout. Exam nonfocal. Diagnostics: Right hip Therapeutics: []Toradol 60 IM provided Morphine 2 mg IM Impression: []Low back pain radiating to the right foot Definitive disposition and diagnosis as appropriate pending reevaluation and review of above. right hip/leg Pain Score (Numeric/FACES): 10 - Related Data Allergies Allergy/AdvReac Type Severity Reaction Status Date / Time No Known Allergies Allergy Verified 11/14/16 06:28 Home Meds: Home Meds Calcium Acetate [PhosLo] 2 cap PO TIDAC 11/09/16 [History] FLUoxetine [PROzac] 10 mg PO DAILY 11/09/16 [History] Gabapentin [Neurontin] 100 mg PO BID 11/09/16 [History] Insulin Degludec [Tresiba Flextouch U-100] 30 units SQ DAILY 11/09/16 [History] LORazepam 0.5 mg PO BID PRN 11/09/16 [History] Metoprolol Tartrate [Lopressor] 50 mg PO BID 11/09/16 [History] Zolpidem [Ambien] 5 mg PO BEDTIME 11/09/16 [History] amLODIPine [Norvasc] 10 mg PO BID 11/09/16 [History] cloNIDine [Catapres] 0.1 mg PO BID 11/09/16 [History] Past Medical History - Past Health History Medical/Surgical History: Denies Medical/Surgical History Other HEENT History: wears glasses Cardiovascular History: Reports: Hypertension, Other (See Below) Other Cardiovascular History: transferred to [place] last Wednesday to cardiac issues. ACS Respiratory History: Reports: None Gastrointestinal History: Reports: None Genitourinary History: Reports: Acute Renal Failure, Chronic Renal Insuffiency Other Genitourinary History: pt on dialysis Musculoskeletal History: Reports: Fracture Other Musculoskeletal History: hx of fx right foot Neurological History: Reports: None Psychiatric History: Reports: None Endocrine/Metabolic History: Reports: Diabetes, Type I, Obesity/BMI 30+ Hematologic History: Reports: None Immunologic History: Reports: None Oncologic (Cancer) History: Reports: None Dermatologic History: Reports: None - Infectious Disease History Infectious Disease History: Reports: None - Past Surgical History HEENT Surgical History: Reports: None Cardiovascular Surgical History: Reports: Other (See Below) Other Cardiovascular Surgeries/Procedures: Insertion of dialysis cathete and AV Shunt Respiratory Surgical History: Reports: None GI Surgical History: Reports: Appendectomy Male Surgical History: Reports: None Endocrine Surgical History: Reports: None Neurological Surgical History: Reports: None Musculoskeletal Surgical History: Reports: Shoulder Surgery Other Musculoskeletal Surgeries/Procedures:: right RTCR Oncologic Surgical History: Reports: None Social & Family History - Family History Family Medical History: Noncontributory - Tobacco Use Smoking Status *Q: Never Smoker Second Hand Smoke Exposure: No - Caffeine Use Caffeine Use: Reports: Coffee Caffeine Use Comment: 1cup/day - Recreational Drug Use Recreational Drug Use: No Drug Use in Last 12 Months: No Course - Vital Signs Last Recorded V/S: Last Vital Signs Temp 37.4 C 11/14/16 06:28 Pulse 83 11/14/16 07:56 Resp 20 11/14/16 07:56 BP 177/81 H 11/14/16 07:56 Pulse Ox 93 L 11/14/16 07:56 - Orders/Labs/Meds Orders: Active Orders 24 hr Category Date Time Status Hip Min 2V or 3V Rt [CR] Stat Exams 11/14/16 06:57 Taken Lumbar Spine 2 or 3V [CR] Stat Exams 11/14/16 06:45 Taken Orphenadrine [Norflex] Med 11/14/16 08:10 Once 60 mg IM ONETIME ONE methylPREDNISolone Sod Succ [Solu-MEDROL] Med 11/14/16 08:09 Once 125 mg IVPUSH ONETIME ONE Medication Orders Methylprednisolone Sodium Succinate (Solu-Medrol) 125 mg IVPUSH ONETIME ONE Stop: 11/14/16 08:10 Orphenadrine Citrate (Norflex) 60 mg IM ONETIME ONE Stop: 11/14/16 08:11 Meds: Medications Generic Name Dose Route Start Last Admin Trade Name Freq PRN Reason Stop Dose Admin Methylprednisolone Sodium Succinate 125 mg 11/14/16 08:09 Solu-Medrol IVPUSH 11/14/16 08:10 ONETIME ONE Orphenadrine Citrate 60 mg 11/14/16 08:10 Norflex IM 11/14/16 08:11 ONETIME ONE Discontinued Medications Generic Name Dose Route Start Last Admin Trade Name Freq PRN Reason Stop Dose Admin Ketorolac Tromethamine 60 mg 11/14/16 06:44 11/14/16 06:55 Toradol IM 11/14/16 06:45 Not Given ONETIME ONE Morphine Sulfate 2 mg 11/14/16 06:55 11/14/16 06:58 Morphine IV 11/14/16 06:56 2 mg ONETIME ONE Administration Departure - Departure Disposition: Home, Self-Care 01 Clinical Impression: Hip pain, right - Discharge Information Referrals: PCP,None [Primary Care Provider] - Forms: ED Department Discharge Additional Instructions: The following information is given to patients seen in the emergency department who are being discharged to home. This information is to outline your options for follow-up care. We provide all patients seen in our emergency department with a follow-up referral. The need for follow-up, as well as the timing and circumstances, are variable depending upon the specifics of your emergency department visit. If you don't have a primary care physician on staff, we will provide you with a referral. We always advise you to contact your personal physician following an emergency department visit to inform them of the circumstance of the visit and for follow-up with them and/or the need for any referrals to a consulting specialist. The emergency department will also refer you to a specialist when appropriate. This referral assures that you have the opportunity for followup care with a specialist. All of these measure are taken in an effort to provide you with optimal care, which includes your followup. Under all circumstances we always encourage you to contact your private physician who remains a resource for coordinating your care. When calling for followup care, please make the office aware that this follow-up is from your recent emergency room visit. If for any reason you are refused follow-up, please contact the [facility] emergency department at and ask to speak to the emergency department charge nurse. [facility] Primary care- Internal Medicine and Family [address] [id number] Please try to range of motion at the hip and use medications as needed and prescribed. Do not mix the Norflex and the tramadol. Use one or the other. Please contact her provider on Wednesday for further care and evaluation and possible referral for physical therapy. Return to ER as needed and as discussed - My Orders Last 24 Hours: My Active Orders 11/14/16 08:09 methylPREDNISolone Sod Succ [Solu-MEDROL] 125 mg IVPUSH ONETIME ONE 11/14/16 08:10 Orphenadrine [Norflex] 60 mg IM ONETIME ONE - Assessment/Plan Last 24 Hours: My Active Orders 11/14/16 08:09 methylPREDNISolone Sod Succ [Solu-MEDROL] 125 mg IVPUSH ONETIME ONE 11/14/16 08:10 Orphenadrine [Norflex] 60 mg IM ONETIME ONE <Chary Wong - Last Filed: 11/14/16 08:12> ED HPI GENERAL MEDICAL PROBLEM - History of Present Illness INITIAL COMMENTS - FREE TEXT/NARRATIVE: This is Dr. Wong dictating an addendum note as I have assumed care of this patient at 7 AM. The patient is a known dialysis patient here and has received his dialysis recently and has a history of diabetes and hypertension. Patient says that the pain is in the right hip area and radiates down his leg but he has no back pain. Had no recent trauma. The patient tells me that the pain started yesterday morning not this morning and has been constant ever since. He said he did not take any medications yesterday for the pain and he did not contact his physician. He says he doesn't have a history of hip or back pain. He 's had no bowel or bladder disturbances no weakness in his leg and no other systemic complaints. On examination he has reproducible tenderness when I palpate the lateral hip area but there is no fullness redness or warmth. He is able to range of motion at the hip but says that it is uncomfortable. When he ranges at the hip he says that that reproduces the pain. Neurovascular is intact distally with good sensation and motor in the right lower extremity. There is no lumbar back tenderness on palpation or deformities appreciated. There is no flank tenderness on the right. X-ray of the lumbar spine as well as hip was performed and I will proceed pending those results. 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 He does have tenderness in that gluteal area. I will give him one dose of steroids here and not continue him on any at home due to his diabetes. I will also give him a dose of Norflex and some Norflex for home. There may be some muscle component to this as well as the joint discomfort. I will also give him some tramadol to try and have advised him to contact his provider on Wednesday for further guidance and possible physical therapy. Impression: Right hip/lower back pain stable Review of Systems - Review of Systems Review Of Systems: ROS reveals no pertinent complaints other than HPI. ED EXAM, GENERAL - Physical Exam Exam: See Below (See dictation) Departure - Departure Time of Disposition: 08:11 Condition: Good - My Orders Last 24 Hours: My Active Orders 11/14/16 08:09 methylPREDNISolone Sod Succ [Solu-MEDROL] 125 mg IVPUSH ONETIME ONE 11/14/16 08:10 Orphenadrine [Norflex] 60 mg IM ONETIME ONE - Assessment/Plan Last 24 Hours: My Active Orders 11/14/16 08:09 methylPREDNISolone Sod Succ [Solu-MEDROL] 125 mg IVPUSH ONETIME ONE 11/14/16 08:10 Orphenadrine [Norflex] 60 mg IM ONETIME ONE
[2016-11-14] MEDS ORDERED: Morphine 10 MG/ML Syringe IV ONE (06:55)
[2016-11-14] MEDS ORDERED: methylPREDNISolone Sodium Succinate 125 MG/2 ML SDV IVPUSH ONE (08:09)
[2016-11-14 09:13] VITALS: BP 177/80
--- NOTE | 2016-11-16 13:34 | CR ---
EXAM DATE: 11/14/16 PATIENT'S AGE: 66 Patient: STEPHANIE RAHMAN Facility: [place], [place] Site . Site : 1950 Study: XRay Spine Lumbar [id number]/30/2017 7:33:02 AM Ordering Physician: Doctor Christiansen Final Report: HISTORY: Low back pain. TECHNIQUE: Three views of the lumbar spine. COMPARISON: No prior. FINDINGS: There are 5 lumbar type vertebral bodies. Lumbar vertebral body height is maintained. There is no acute fracture or significant malalignment. Mild degenerative disc disease within the lumbar spine with multilevel osteophyte formation. Only slight loss of intervertebral disc height at L4-L5. Disc height at other levels appears maintained. IMPRESSION: 1. No acute fracture or malalignment. 2. Mild degenerative disc disease within the lumbar spine. Dictated by Milan Perdomo MD @ 11/14/2016 8:02:37 AM Dictated by: Milan Perdomo MD @ 11/14/2016 08:02:42 (Electronic Signature) Report Signed by Proxy. HILARIO
--- NOTE | 2016-11-16 13:35 | CR ---
EXAM DATE: 11/14/16 PATIENT'S AGE: 66 Patient: STEPHANIE RAHMAN Facility: [place], [place] Site . Site : 1950 Study: XRay Hip Right [id number]/30/2017 7:33:26 AM Ordering Physician: Doctor Christiansen Final Report: HISTORY: Low back pain radiating into the right leg. TECHNIQUE: Two views of the right hip. COMPARISON: No prior. FINDINGS: The mildly aspherical appearance of the femoral head-neck junction is developmental. There is no acute fracture. No significant right hip joint space narrowing. There is a small focus of calcification along the posterior aspect of proximal femur which could relate to calcific tendonitis at the gluteus saige attachment region. Similar finding involves the expected attachment of the right common hamstring tendon. IMPRESSION: 1. No fracture. 2. No hip joint space narrowing. Dictated by Milan Perdomo MD @ 11/14/2016 8:04:30 AM Dictated by: Milan Perdomo MD @ 11/14/2016 08:04:36 (Electronic Signature) Report Signed by Proxy. [facility]
== END 2016-11-14 09:50 | disposition home or self-care (01) ==
LOC: MW.ED 06:18
DX: M25.551 Pain in right hip (principal); M54.5 Low back pain; N18.9 Chronic kidney disease, unspecified; E10.22 Type 1 diabetes mellitus with diabetic chronic kidney disease; E66.9 Obesity, unspecified; I12.9 Hypertensive chronic kidney disease with stage 1 through stage 4 chronic kidney disease, or unspecified chronic kidney disease; Z79.899 Other long term (current) drug therapy; Z68.31 Body mass index [BMI] 31.0-31.9, adult; Z79.4 Long term (current) use of insulin; Z99.2 Dependence on renal dialysis
CPT/HCPCS: 72100; 73502; 96372; 96374; 96375; 99283; J2270; J2360; J2930; J1885

== ENCOUNTER 2017-02-16 05:25 | Emergency (ER) | payer MEDICAID, MEDICARE ==
--- NOTE | 2017-02-16 05:33 | EDM.PDOC ---
ED HPI GENERAL MEDICAL PROBLEM - General Chief Complaint: Respiratory Problem Stated Complaint: BAD COLD Time Seen by Provider: 02/16/17 05:31 - History of Present Illness INITIAL COMMENTS - FREE TEXT/NARRATIVE: HISTORY AND PHYSICAL: History of present illness: Patient 66-year-old male history of chronic renal failure who was dialyzed times weekly and is due for dialysis this a.m. presents with concern of acute shortness of breath and chest pain described as pressure he denies diaphoresis nausea vomiting palpitations there's been no fever chills or other concern Review of systems: As per history of present illness and below otherwise all systems reviewed and negative. Past medical history: As per history of present illness and as reviewed below otherwise noncontributory. Surgical history: As per history of present illness and as reviewed below otherwise noncontributory. Social history: No reported history of drug or alcohol abuse. Family history: As per history of present illness and as reviewed below otherwise noncontributory. Physical exam: HEENT: Atraumatic, normocephalic, pupils reactive, negative for conjunctival pallor or scleral icterus, mucous membranes moist, throat clear, neck supple, nontender, trachea midline. Lungs: Diminished scant basilar crackles noted, breath sounds equal bilaterally , chest nontender. Heart: S1S2, regular, negative for clicks, rubs, or JVD. Abdomen: Soft, nondistended, nontender. Negative for masses or hepatosplenomegaly. Negative for costovertebral tenderness. Pelvis: Stable nontender. Genitourinary: Deferred. Rectal: Deferred. Extremities: Atraumatic, negative for cords or calf pain. Neurovascular unremarkable. Neuro: Awake, alert, oriented. Cranial nerves II through XII unremarkable. Cerebellum unremarkable. Motor and sensory unremarkable throughout. Exam nonfocal. Diagnostics: CBC CMP PT/INR troponin BNP EKG chest x-ray influenza screen Therapeutics: RingLoc aspirin 324 mg Nitropaste 1 inch Impression: #1 chest pain #2 chronic renal failure #3 dyspnea Definitive disposition and diagnosis as appropriate pending reevaluation and review of above. Chest Pain Score (Numeric/FACES): 10 - Related Data Allergies Allergy/AdvReac Type Severity Reaction Status Date / Time No Known Allergies Allergy Verified 01/08/17 03:55 Home Meds: Home Meds Calcium Acetate [PhosLo] 2 cap PO TIDAC 11/09/16 [History] FLUoxetine [PROzac] 10 mg PO DAILY 11/09/16 [History] Gabapentin [Neurontin] 100 mg PO BID 11/09/16 [History] Insulin Degludec [Tresiba Flextouch U-100] 40 units SQ DAILY 11/09/16 [History] LORazepam 0.5 mg PO BID PRN 11/09/16 [History] Metoprolol Tartrate [Lopressor] 50 mg PO BID 11/09/16 [History] Zolpidem [Ambien] 5 mg PO BEDTIME 11/09/16 [History] amLODIPine [Norvasc] 10 mg PO BEDTIME 11/09/16 [History] cloNIDine [Catapres] 0.1 mg PO BID PRN 11/09/16 [History] Albuterol Sulfate [Proair Respiclick] 2 inh IH ASDIRECTED PRN 01/08/17 [History] Aspirin [Halfprin] 81 mg PO BRK 01/08/17 [History] Insulin Aspart [Novolog] 4 unit SQ TID 01/08/17 [History] atorvaSTATin Calcium [Atorvastatin Calcium] 80 mg PO BEDTIME 01/08/17 [History] Past Medical History - Past Health History Medical/Surgical History: Denies Medical/Surgical History Other HEENT History: wears glasses Cardiovascular History: Reports: Hypertension, Other (See Below) Other Cardiovascular History: transferred to [place] last Wednesday to cardiac issues. ACS Respiratory History: Reports: None Gastrointestinal History: Reports: None Genitourinary History: Reports: Acute Renal Failure, Chronic Renal Insuffiency Other Genitourinary History: pt on dialysis Musculoskeletal History: Reports: Fracture Other Musculoskeletal History: hx of fx right foot Neurological History: Reports: None Psychiatric History: Reports: None Endocrine/Metabolic History: Reports: Diabetes, Type I, Obesity/BMI 30+ Hematologic History: Reports: None Immunologic History: Reports: None Oncologic (Cancer) History: Reports: None Dermatologic History: Reports: None - Infectious Disease History Infectious Disease History: Reports: None - Past Surgical History HEENT Surgical History: Reports: None Cardiovascular Surgical History: Reports: Other (See Below) Other Cardiovascular Surgeries/Procedures: Insertion of dialysis cathete and AV Shunt Respiratory Surgical History: Reports: None GI Surgical History: Reports: Appendectomy Male Surgical History: Reports: None Endocrine Surgical History: Reports: None Neurological Surgical History: Reports: None Musculoskeletal Surgical History: Reports: Shoulder Surgery Other Musculoskeletal Surgeries/Procedures:: right RTCR Oncologic Surgical History: Reports: None Social & Family History - Family History Family Medical History: Noncontributory - Tobacco Use Smoking Status *Q: Never Smoker Second Hand Smoke Exposure: No - Caffeine Use Caffeine Use: Reports: Coffee Caffeine Use Comment: 1cup/day - Recreational Drug Use Recreational Drug Use: No Drug Use in Last 12 Months: No ED ROS GENERAL - Review of Systems Review Of Systems: ROS reveals no pertinent complaints other than HPI. ED EXAM, GENERAL - Physical Exam Exam: See Below (See dictation) Course - Vital Signs Text/Narrative:: I discussed transfer with patient and who agree we discussed transfer by air medical versus ground patient and request ground. I discussed case with Dr. Peralta at [facility] ER graciously accepted the patient for transfer Last Recorded V/S: Last Vital Signs Temp 37.1 C 02/16/17 05:31 Pulse 102 H 02/16/17 05:31 Resp 20 02/16/17 05:31 BP 205/97 H 02/16/17 05:31 Pulse Ox 97 02/16/17 05:31 - Orders/Labs/Meds Orders: Active Orders 24 hr Category Date Time Status EKG Documentation Completion [RC] STAT Care 02/16/17 05:32 Active Chest 1V Frontal [CR] Stat Exams 02/16/17 05:32 Ordered B-TYPE NATRIURETIC PEPTIDE,BNP [CHEM] Stat Lab 02/16/17 05:45 Received CBC WITH AUTO DIFF [HEME] Stat Lab 02/16/17 05:45 Received CKMB [CHEM] Stat Lab 02/16/17 05:45 Received COMPREHENSIVE METABOLIC PN,CMP [CHEM] Stat Lab 02/16/17 05:45 Received CREATINE KINASE,CK [CHEM] Stat Lab 02/16/17 05:45 Received INFLUENZA A+B AG SCREEN [RM] Stat Lab 02/16/17 05:37 Uncollected TROPONIN I [CHEM] Stat Lab 02/16/17 05:45 Received Meds: Medications Discontinued Medications Generic Name Dose Route Start Last Admin Trade Name Freq PRN Reason Stop Dose Admin Aspirin 324 mg 02/16/17 05:36 02/16/17 05:53 Aspirin PO 02/16/17 05:37 324 mg ONETIME ONE Administration Nitroglycerin 1 gm 02/16/17 05:36 02/16/17 05:51 Nitro-Bid 2% TOP 02/16/17 05:37 1 gm ONETIME ONE Administration Departure - Departure Time of Disposition: 05:54 Disposition: DC/Tfer to Acute Hospital 02 Condition: Serious Clinical Impression: Chest pain, Chronic renal failure - Discharge Information Forms: ED Department Discharge - My Orders Last 24 Hours: My Active Orders 02/16/17 05:32 EKG Documentation Completion [RC] STAT Chest 1V Frontal [CR] Stat 02/16/17 05:37 INFLUENZA A+B AG SCREEN [RM] Stat 02/16/17 05:45 B-TYPE NATRIURETIC PEPTIDE,BNP [CHEM] Stat CBC WITH AUTO DIFF [HEME] Stat CKMB [CHEM] Stat COMPREHENSIVE METABOLIC PN,CMP [CHEM] Stat CREATINE KINASE,CK [CHEM] Stat TROPONIN I [CHEM] Stat - Assessment/Plan Last 24 Hours: My Active Orders 02/16/17 05:32 EKG Documentation Completion [RC] STAT Chest 1V Frontal [CR] Stat 02/16/17 05:37 INFLUENZA A+B AG SCREEN [RM] Stat 02/16/17 05:45 B-TYPE NATRIURETIC PEPTIDE,BNP [CHEM] Stat CBC WITH AUTO DIFF [HEME] Stat CKMB [CHEM] Stat COMPREHENSIVE METABOLIC PN,CMP [CHEM] Stat CREATINE KINASE,CK [CHEM] Stat TROPONIN I [CHEM] Stat
[2017-02-16] MEDS ORDERED: Nitroglycerin 2% Oint 1 GM UD Packet TOP ONE (05:36)
[2017-02-16] MEDS ORDERED: Aspirin 81 MG Tab.Chew PO ONE (05:36)
[2017-02-16] MEDS ORDERED: Morphine 2 MG/ML Syringe IVPUSH ONE (05:57)
[2017-02-16] MEDS ORDERED: Ondansetron 4 MG/2 ML SDV IVPUSH ONE (05:57)
[2017-02-16 06:20] LABS: CHLORIDE,CL 106 mmol/L (98-110); SODIUM,NA 143 mmol/L (136-146)
[2017-02-16 06:41] VITALS: BP 180/93
--- NOTE | 2017-02-16 21:04 | CR ---
EXAM DATE: 02/16/17 PATIENT'S AGE: 66 Patient: STEPHANIE RAHMAN Facility: [place], [place] Site . Site : 1950 Study: XRay Chest [id number]/2/2018 6:17:22 AM Ordering Physician: Doctor Christiansen Final Report: CHEST 1 VIEW AP INDICATION: Chest pain. IMPRESSION: Normal heart size and vascular pattern. Lungs are clear. No pneumothorax or pleural abnormality. ECG Monitor leads projected over the patient. Dictated by Talon Quiroz MD @ Feb 16 2017 6:21AM (Electronic Signature) Report Signed by Proxy. HILARIO
== END 2017-02-16 06:55 ==
LOC: MW.ED 05:25
DX: R07.9 Chest pain, unspecified (principal); R06.00 Dyspnea, unspecified; I12.9 Hypertensive chronic kidney disease with stage 1 through stage 4 chronic kidney disease, or unspecified chronic kidney disease; E10.22 Type 1 diabetes mellitus with diabetic chronic kidney disease; N18.9 Chronic kidney disease, unspecified; Z79.899 Other long term (current) drug therapy; Z79.82 Long term (current) use of aspirin
CPT/HCPCS: 71045; 80053; 82550; 82553; 83880; 84484; 85025; 85610; 87804; 93005; 96374; 96375; 99285; A9270; J2270; J2405; 99283

== ENCOUNTER 2018-05-14 20:32 | Emergency (ER) | payer MEDICARE, MEDICAID ==
[2018-05-14] MEDS ORDERED: methylPREDNISolone Sodium Succinate 125 MG/2 ML SDV IM ONE (21:08)
[2018-05-14] MEDS ORDERED: diphenhydrAMINE 50 MG/ML SDV IM ONE (21:08)
--- NOTE | 2018-05-14 21:13 | EDM.PDOC ---
ED HPI GENERAL MEDICAL PROBLEM - General Chief Complaint: Skin Complaint Stated Complaint: RASH ALL OVER BODY Time Seen by Provider: 05/14/18 21:05 - History of Present Illness INITIAL COMMENTS - FREE TEXT/NARRATIVE: HISTORY AND PHYSICAL: History of present illness: Patient 67-year-old male with history of chronic renal failure who had AV fistula surgery last Wednesday and comes in today with maculopapular pruritic rash somewhat diffuse he's had no new medications other than they've been related to surgery he is on antihypertensives he states this is pruritic there' s been no tongue or lip swelling no difficulty swallowing speaking or other complaints. Review of systems: As per history of present illness and below otherwise all systems reviewed and negative. Past medical history: As per history of present illness and as reviewed below otherwise noncontributory. Surgical history: As per history of present illness and as reviewed below otherwise noncontributory. Social history: No reported history of drug or alcohol abuse. Family history: As per history of present illness and as reviewed below otherwise noncontributory. Physical exam: HEENT: Atraumatic, normocephalic, pupils reactive, negative for conjunctival pallor or scleral icterus, mucous membranes moist, throat clear, neck supple, nontender, trachea midline. Lungs: Clear to auscultation, breath sounds equal bilaterally, chest nontender. Heart: S1S2, regular, negative for clicks, rubs, or JVD. Abdomen: Soft, nondistended, nontender. Negative for masses or hepatosplenomegaly. Negative for costovertebral tenderness. Pelvis: Stable nontender. Genitourinary: Deferred. Rectal: Deferred. Extremities: Recent surgical wound on left upper extremity without evidence of infection healing well Neuro: Awake, alert, oriented. Cranial nerves II through XII unremarkable. Cerebellum unremarkable. Motor and sensory unremarkable throughout. Exam nonfocal. Skin: Patient is a somewhat diffuse maculopapular rash there is no purpura and the rash is nontoxic in appearance Diagnostics: None Therapeutics: Benadryl 50 mg IM Cymetra 125 mg IM Impression: #1 rash probable allergic dermatitis #2 history of chronic renal failure Definitive disposition and diagnosis as appropriate pending reevaluation and review of above. - Related Data Allergies Allergy/AdvReac Type Severity Reaction Status Date / Time No Known Allergies Allergy Verified 03/30/19 20:47 Home Meds: Home Meds Calcium Acetate [PhosLo] 2 cap PO TIDAC 11/09/16 [History] FLUoxetine [PROzac] 10 mg PO DAILY 11/09/16 [History] Gabapentin [Neurontin] 100 mg PO BID 11/09/16 [History] Insulin Degludec [Tresiba Flextouch U-100] 40 units SQ DAILY 11/09/16 [History] LORazepam 0.5 mg PO BID PRN 11/09/16 [History] Metoprolol Tartrate [Lopressor] 50 mg PO BID 11/09/16 [History] Zolpidem [Ambien] 5 mg PO BEDTIME 11/09/16 [History] amLODIPine [Norvasc] 10 mg PO BEDTIME 11/09/16 [History] cloNIDine [Catapres] 0.1 mg PO BID PRN 11/09/16 [History] Aspirin [Halfprin] 81 mg PO BRK 01/08/17 [History] Insulin Aspart [Novolog] 4 unit SQ TID 01/08/17 [History] atorvaSTATin Calcium [Atorvastatin Calcium] 80 mg PO BEDTIME 01/08/17 [History] Past Medical History - Past Health History Medical/Surgical History: Denies Medical/Surgical History Other HEENT History: wears glasses Cardiovascular History: Reports: Hypertension, Other (See Below) Other Cardiovascular History: transferred to [place] last Wednesday to cardiac issues. ACS Respiratory History: Reports: None Gastrointestinal History: Reports: None Genitourinary History: Reports: Acute Renal Failure, Chronic Renal Insuffiency Other Genitourinary History: pt on dialysis Musculoskeletal History: Reports: Fracture Other Musculoskeletal History: hx of fx right foot Neurological History: Reports: None Psychiatric History: Reports: Anxiety, Depression Endocrine/Metabolic History: Reports: Diabetes, Type I, Obesity/BMI 30+ Hematologic History: Reports: None Immunologic History: Reports: None Oncologic (Cancer) History: Reports: None Dermatologic History: Reports: None - Infectious Disease History Infectious Disease History: Reports: None - Past Surgical History HEENT Surgical History: Reports: None Cardiovascular Surgical History: Reports: Other (See Below) Other Cardiovascular Surgeries/Procedures: Insertion of dialysis cathete and AV Shunt Respiratory Surgical History: Reports: None GI Surgical History: Reports: Appendectomy Male Surgical History: Reports: None Endocrine Surgical History: Reports: None Neurological Surgical History: Reports: None Musculoskeletal Surgical History: Reports: Shoulder Surgery Other Musculoskeletal Surgeries/Procedures:: right RTCR Oncologic Surgical History: Reports: None Social & Family History - Family History Family Medical History: Noncontributory - Tobacco Use Smoking Status *Q: Never Smoker - Caffeine Use Caffeine Use: Reports: Coffee Caffeine Use Comment: 1cup/day - Recreational Drug Use Recreational Drug Use: No ED ROS GENERAL - Review of Systems Review Of Systems: ROS reveals no pertinent complaints other than HPI. ED EXAM, SKIN/RASH Exam: See Below (Dictation dictation) Course - Vital Signs Last Recorded V/S: Last Vital Signs Temp 36.4 C 05/14/18 20:32 Pulse 74 05/14/18 20:32 Resp 18 05/14/18 20:32 BP 194/77 H 05/14/18 20:32 Pulse Ox 99 05/14/18 20:32 Departure - Departure Time of Disposition: 21:13 Disposition: Home, Self-Care 01 Condition: Good Clinical Impression: Rash, Allergic dermatitis - Discharge Information Referrals: PCP,None [Primary Care Provider] - Additional Instructions: The following information is given to patients seen in the emergency department who are being discharged to home. This information is to outline your options for follow-up care. We provide all patients seen in our emergency department with a follow-up referral. The need for follow-up, as well as the timing and circumstances, are variable depending upon the specifics of your emergency department visit. If you don't have a primary care physician on staff, we will provide you with a referral. We always advise you to contact your personal physician following an emergency department visit to inform them of the circumstance of the visit and for follow-up with them and/or the need for any referrals to a consulting specialist. The emergency department will also refer you to a specialist when appropriate. This referral assures that you have the opportunity for followup care with a specialist. All of these measure are taken in an effort to provide you with optimal care, which includes your followup. Under all circumstances we always encourage you to contact your private physician who remains a resource for coordinating your care. When calling for followup care, please make the office aware that this follow-up is from your recent emergency room visit. If for any reason you are refused follow-up, please contact the [facility] emergency department at and asked to speak to the emergency department charge nurse. Benadryl Medrol as prescribed continue current medications follow private medical doctor as discussed return as needed as discussed
[2018-05-14 21:55] VITALS: BP 175/77
== END 2018-05-14 21:52 | disposition home or self-care (01) ==
LOC: MW.ED 20:32
DX: L23.9 Allergic contact dermatitis, unspecified cause (principal); I12.9 Hypertensive chronic kidney disease with stage 1 through stage 4 chronic kidney disease, or unspecified chronic kidney disease; N18.9 Chronic kidney disease, unspecified; E10.22 Type 1 diabetes mellitus with diabetic chronic kidney disease; F41.9 Anxiety disorder, unspecified; F32.9 Major depressive disorder, single episode, unspecified; Z79.899 Other long term (current) drug therapy
CPT/HCPCS: 96372; 99282; J1200; J2930

== ENCOUNTER 2018-09-14 13:17 | Emergency (ER) | payer MEDICAID, MEDICARE ==
[2018-09-14 13:30] VITALS: PULSE 53
--- NOTE | 2018-09-14 13:43 | EDM.PDOC ---
ED HPI GENERAL MEDICAL PROBLEM - General Chief Complaint: Chest Pain Stated Complaint: REF FROM OTHER CLINIC Time Seen by Provider: 09/14/18 13:41 Source of Information: Reports: Patient, Provider - History of Present Illness INITIAL COMMENTS - FREE TEXT/NARRATIVE: HISTORY AND PHYSICAL: History of present illness: [Patient with end-stage renal disease on dialysis presents with intermittent chest pains for 1 week intermittent shortness of breath with exertion , no fever nausea vomiting chills sweats no headache dizziness or palpitation no bowel or urine symptoms at current His provider sent him over for evaluation, as his had complained of some facial droop on the right however this had resolved symptoms were several days prior however reported by The patient had refused to come into the ER for evaluation at that time Review of systems: As per history of present illness and below otherwise all systems reviewed and negative. Past medical history: As per history of present illness and as reviewed below otherwise noncontributory. Surgical history: As per history of present illness and as reviewed below otherwise noncontributory. Social history: No reported history of drug or alcohol abuse. Family history: As per history of present illness and as reviewed below otherwise noncontributory. Physical exam: HEENT: Atraumatic, normocephalic, pupils reactive, negative for conjunctival pallor or scleral icterus, mucous membranes moist, throat clear, neck supple, nontender, trachea midline. Lungs: Clear to auscultation, breath sounds equal bilaterally, chest nontender. Heart: S1S2, regular, negative for clicks, rubs, or JVD. Abdomen: Soft, nondistended, nontender. Negative for masses or hepatosplenomegaly. Negative for costovertebral tenderness. Pelvis: Stable nontender. Genitourinary: Deferred. Rectal: Deferred. Extremities: Atraumatic, negative for cords or calf pain. Neurovascular unremarkable. Neuro: Awake, alert, oriented. Cranial nerves II through XII unremarkable. Cerebellum unremarkable. Motor and sensory unremarkable throughout. Exam nonfocal. Diagnostics: [CBC CMP UA troponin EKG Chest 1 view ]CT head no contrast Therapeutics: [Continue current therapy Aspirin daily] Follow up with primary care Impression: Medical screening exam reports right facial droop that has resolved, TIA-like symptoms by history [Chronic history baseline ] Definitive disposition and diagnosis as appropriate pending reevaluation and review of above. - Related Data Allergies Allergy/AdvReac Type Severity Reaction Status Date / Time No Known Allergies Allergy Verified 09/14/18 13:27 Home Meds: Home Meds Calcium Acetate [PhosLo] 1,334 mg PO TIDAC 11/09/16 [History] FLUoxetine [PROzac] 10 mg PO BEDTIME 11/09/16 [History] Gabapentin [Neurontin] 200 mg PO BID 11/09/16 [History] LORazepam 0.5 mg PO DAILY PRN 11/09/16 [History] Metoprolol Tartrate [Lopressor] 50 mg PO BID 11/09/16 [History] Zolpidem [Ambien] 10 mg PO BEDTIME 11/09/16 [History] amLODIPine [Norvasc] 20 mg PO DAILY 11/09/16 [History] cloNIDine [Catapres] 0.2 mg PO BID PRN 11/09/16 [History] Aspirin [Halfprin] 81 mg PO BRK 01/08/17 [History] Insulin Aspart [Novolog] 4 unit SQ TIDAC 01/08/17 [History] atorvaSTATin Calcium [Atorvastatin Calcium] 20 mg PO BEDTIME 01/08/17 [History] Insulin Degludec [Tresiba] 40 unit SQ DAILY 09/14/18 [History] Lisinopril 10 mg PO DAILY 09/14/18 [History] PARoxetine [Paxil] 20 mg PO DAILY 09/14/18 [History] rOPINIRole [Requip] 2 mg PO DAILY 09/14/18 [History] Past Medical History - Past Health History Medical/Surgical History: Denies Medical/Surgical History Other HEENT History: wears glasses Cardiovascular History: Reports: Hypertension, Other (See Below) Other Cardiovascular History: transferred to [place] last Wednesday to cardiac issues. ACS Respiratory History: Reports: None Gastrointestinal History: Reports: None Genitourinary History: Reports: Acute Renal Failure, Chronic Renal Insuffiency Other Genitourinary History: pt on dialysis Musculoskeletal History: Reports: Fracture Other Musculoskeletal History: hx of fx right foot Neurological History: Reports: None Psychiatric History: Reports: Anxiety, Depression Endocrine/Metabolic History: Reports: Diabetes, Type I, Obesity/BMI 30+ Hematologic History: Reports: None Immunologic History: Reports: None Oncologic (Cancer) History: Reports: None Dermatologic History: Reports: None - Infectious Disease History Infectious Disease History: Reports: Measles, Mumps - Past Surgical History HEENT Surgical History: Reports: None Cardiovascular Surgical History: Reports: Other (See Below) Other Cardiovascular Surgeries/Procedures: Insertion of dialysis cathete and AV Shunt Respiratory Surgical History: Reports: None GI Surgical History: Reports: Appendectomy Male Surgical History: Reports: None Endocrine Surgical History: Reports: None Neurological Surgical History: Reports: None Musculoskeletal Surgical History: Reports: Shoulder Surgery Other Musculoskeletal Surgeries/Procedures:: right RTCR Oncologic Surgical History: Reports: None Social & Family History - Family History Family Medical History: Noncontributory - Tobacco Use Smoking Status *Q: Never Smoker - Caffeine Use Caffeine Use: Reports: Coffee Caffeine Use Comment: 1cup/day - Recreational Drug Use Recreational Drug Use: No ED ROS GENERAL - Review of Systems Review Of Systems: See Below ED EXAM, GENERAL - Physical Exam Exam: See Below Course - Vital Signs Last Recorded V/S: Last Vital Signs Temp 97.8 F 09/14/18 13:29 Pulse 53 L 09/14/18 15:04 Resp 16 09/14/18 15:04 BP 167/72 H 09/14/18 15:04 Pulse Ox 92 L 09/14/18 15:04 - Orders/Labs/Meds Orders: Active Orders 24 hr Category Date Time Status EKG Documentation Completion [RC] STAT Care 09/14/18 13:21 Active Labs: Laboratory Tests 09/14/18 09/14/18 09/14/18 Range/Units 13:20 13:20 13:20 WBC 8.22 (4.0-11.0) K/uL RBC 4.01 L (4.50-5.90) M/uL Hgb 12.8 L (13.0-17.0) g/dL Hct 37.4 L (38.0-50.0) % MCV 93.3 (80.0-98.0) fL MCH 31.9 (27.0-32.0) pg MCHC 34.2 (31.0-37.0) g/dL RDW Std Deviation 47.5 (28.0-62.0) fl RDW Coeff of Robert 14 (11.0-15.0) % Plt Count 250 (150-400) K/uL MPV 10.70 (7.40-12.00) fL Neut % (Auto) 69.8 (48.0-80.0) % Lymph % (Auto) 15.3 L (16.0-40.0) % [place] % (Auto) 9.4 (0.0-15.0) % Eos % (Auto) 4.5 (0.0-7.0) % Baso % (Auto) 1.0 (0.0-1.5) % Neut # (Auto) 5.7 (1.4-5.7) K/uL Lymph # (Auto) 1.3 (0.6-2.4) K/uL [place] # (Auto) 0.8 (0.0-0.8) K/uL Eos # (Auto) 0.4 (0.0-0.7) K/uL Baso # (Auto) 0.1 (0.0-0.1) K/uL Nucleated RBC % 0.0 /100WBC Nucleated RBCs # 0 K/uL INR 0.99 Sodium 137 (136-148) mmol/L Potassium 4.4 (3.5-5.1) mmol/L Chloride 97 L (98-107) mmol/L Carbon Dioxide 32.7 H (21.0-32.0) mmol/L BUN 16 (7.0-18.0) mg/dL Creatinine 4.3 H (0.8-1.3) mg/dL Est Cr Clr Drug Dosing TNP Estimated GFR (MDRD) 13.9 ml/min Glucose 143 H (74-106) mg/dL Calcium 9.3 (8.5-10.1) mg/dL Total Bilirubin 0.5 (0.2-1.0) mg/dL AST 10 L (15-37) IU/L ALT 17 (14-63) IU/L Alkaline Phosphatase 84 (46-116) U/L Creatine Kinase (26-308) U/L Troponin I < 0.050 (0.000-0.056) ng/mL Total Protein 7.8 (6.4-8.2) g/dL Albumin 4.1 (3.4-5.0) g/dL Globulin 3.7 (2.6-4.0) g/dL Albumin/Globulin Ratio 1.1 (0.9-1.6) Blood Type Antibody Screen 09/14/18 09/14/18 Range/Units 13:20 13:27 WBC (4.0-11.0) K/uL RBC (4.50-5.90) M/uL Hgb (13.0-17.0) g/dL Hct (38.0-50.0) % MCV (80.0-98.0) fL MCH (27.0-32.0) pg MCHC (31.0-37.0) g/dL RDW Std Deviation (28.0-62.0) fl RDW Coeff of Robert (11.0-15.0) % Plt Count (150-400) K/uL MPV (7.40-12.00) fL Neut % (Auto) (48.0-80.0) % Lymph % (Auto) (16.0-40.0) % [place] % (Auto) (0.0-15.0) % Eos % (Auto) (0.0-7.0) % Baso % (Auto) (0.0-1.5) % Neut # (Auto) (1.4-5.7) K/uL Lymph # (Auto) (0.6-2.4) K/uL [place] # (Auto) (0.0-0.8) K/uL Eos # (Auto) (0.0-0.7) K/uL Baso # (Auto) (0.0-0.1) K/uL Nucleated RBC % /100WBC Nucleated RBCs # K/uL INR Sodium (136-148) mmol/L Potassium (3.5-5.1) mmol/L Chloride (98-107) mmol/L Carbon Dioxide (21.0-32.0) mmol/L BUN (7.0-18.0) mg/dL Creatinine (0.8-1.3) mg/dL Est Cr Clr Drug Dosing Estimated GFR (MDRD) ml/min Glucose (74-106) mg/dL Calcium (8.5-10.1) mg/dL Total Bilirubin (0.2-1.0) mg/dL AST (15-37) IU/L ALT (14-63) IU/L Alkaline Phosphatase (46-116) U/L Creatine Kinase 84 (26-308) U/L Troponin I (0.000-0.056) ng/mL Total Protein (6.4-8.2) g/dL Albumin (3.4-5.0) g/dL Globulin (2.6-4.0) g/dL Albumin/Globulin Ratio (0.9-1.6) Blood Type O POSITIVE Antibody Screen NEGATIVE Departure - Departure Time of Disposition: 15:49 Disposition: Home, Self-Care 01 Condition: Good Clinical Impression: Encounter for medical screening examination - Discharge Information Referrals: Reyes Castanon MD [Primary Care Provider] - Forms: ED Department Discharge Additional Instructions: The following information is given to patients seen in the emergency department who are being discharged to home. This information is to outline your options for follow-up care. We provide all patients seen in our emergency department with a follow-up referral. The need for follow-up, as well as the timing and circumstances, are variable depending upon the specifics of your emergency department visit. If you don't have a primary care physician on staff, we will provide you with a referral. We always advise you to contact your personal physician following an emergency department visit to inform them of the circumstance of the visit and for follow-up with them and/or the need for any referrals to a consulting specialist. The emergency department will also refer you to a specialist when appropriate. This referral assures that you have the opportunity for follow-up care with a specialist. All of these measure are taken in an effort to provide you with optimal care, which includes your follow-up. Under all circumstances we always encourage you to contact your private physician who remains a resource for coordinating your care. When calling for follow-up care, please make the office aware that this follow-up is from your recent emergency room visit. If for any reason you are refused follow-up, please contact the [facility] emergency department at and asked to speak to the emergency department charge nurse. - My Orders Last 24 Hours: My Active Orders 09/14/18 13:21 EKG Documentation Completion [RC] STAT - Assessment/Plan Last 24 Hours: My Active Orders 09/14/18 13:21 EKG Documentation Completion [RC] STAT
[2018-09-14 13:56] LABS: BLOOD UREA NITROGEN,BUN 16 mg/dL (7.0-18.0); CARBON DIOXIDE,CO2 32.7 mmol/L (21.0-32.0); CHLORIDE,CL 97 mmol/L (98-107); GLUCOSE RANDOM 143 mg/dL (74-106); POTASSIUM,K 4.4 mmol/L (3.5-5.1); SODIUM,NA 137 mmol/L (136-148)
--- NOTE | 2018-09-14 14:31 | CR ---
INDICATION: Dizziness. Dyspnea. TECHNIQUE: Portable upright AP chest. COMPARISON: 04/15/2017. FINDINGS: Cardiac, mediastinal and hilar contours are within limits. Pulmonary vasculature is unremarkable. Lungs are grossly clear other than mild left basilar scarring. No appreciable pleural fluid on this single view study. No pneumothorax. IMPRESSION: No signs of acute thoracic disease. Dictated by Christiano Alvarenga MD @ 09/14/2018 2:29:27 PM Dictated by: Christiano Alvarenga MD @ 09/14/2018 14:29:47 (Electronically Signed)
[2018-09-14 15:05] VITALS: BP 167/72
--- NOTE | 2018-09-14 15:33 | CT ---
INDICATION: Pain with dizziness and weakness. TECHNIQUE: CT head without contrast. COMPARISON: None. FINDINGS: CSF spaces: Within normal limits for age. Brain parenchyma and extra-axial spaces: The garcia-white differentiation is normal. No sign of mass, hemorrhage, or midline shift. No extra-axial fluid collection. Skull base and calvarium: The visualized paranasal sinuses and mastoid air cells demonstrate no acute or significant findings. The visualized orbits are grossly unremarkable. No skull fractures. IMPRESSION: Unremarkable noncontrast head CT. Please note that all CT scans at this facility use dose modulation, iterative reconstruction, and/or weight-based dosing when appropriate to reduce radiation dose to as low as reasonably achievable. Dictated by Sekou Reid MD @ Sep 14 2018 3:27PM Signed by Dr. Sekou Reid @ Sep 14 2018 3:32PM
== END 2018-09-14 16:05 | disposition home or self-care (01) ==
LOC: MW.ED 13:17
DX: Z00.01 Encounter for general adult medical examination with abnormal findings (principal); R07.9 Chest pain, unspecified; R06.02 Shortness of breath; I12.0 Hypertensive chronic kidney disease with stage 5 chronic kidney disease or end stage renal disease; N18.6 End stage renal disease; E10.22 Type 1 diabetes mellitus with diabetic chronic kidney disease; E66.9 Obesity, unspecified; Z99.2 Dependence on renal dialysis; Z79.899 Other long term (current) drug therapy; Z79.4 Long term (current) use of insulin; Z79.82 Long term (current) use of aspirin; R29.810 Facial weakness
CPT/HCPCS: 36415; 70450; 70450-26; 71045; 71045-26; 80053; 82550; 84484; 85025; 85610; 86850; 86900; 86901; 93005; 99284; 99285-25

== ENCOUNTER 2018-09-26 12:47 | Emergency (ER) | payer MEDICARE, MEDICAID ==
--- NOTE | 2018-09-26 12:54 | EDM.PDOC ---
ED HPI GENERAL MEDICAL PROBLEM - General Chief Complaint: Cardiovascular Problem Stated Complaint: SENT BY DIALYSIS Time Seen by Provider: 09/26/18 12:54 Source of Information: Reports: Patient History Limitations: Reports: No Limitations - History of Present Illness INITIAL COMMENTS - FREE TEXT/NARRATIVE: HISTORY AND PHYSICAL: History of present illness: Patient is a 67-year-old male presents to the ED for concern of high blood pressure. Patient was at dialysis today and states his blood pressure got as high as 249/106. He finished dialysis and then came to the ED. He reports having a slight headache and some dizziness but denies any chest pain, shortness of breath, nausea, diaphoresis, abdominal pain, vomiting. He has been urinating per his normal today. Review of systems: As per history of present illness and below otherwise all systems reviewed and negative. Past medical history: As per history of present illness and as reviewed below otherwise noncontributory. Surgical history: As per history of present illness and as reviewed below otherwise noncontributory. Social history: No reported history of drug or alcohol abuse. Family history: As per history of present illness and as reviewed below otherwise noncontributory. Physical exam: General: Patient sitting comfortably in no acute distress and nontoxic appearing HEENT: Atraumatic, normocephalic, pupils reactive, negative for conjunctival pallor or scleral icterus, mucous membranes moist, throat clear, neck supple, nontender, trachea midline. No meningeal signs. Lungs: Clear to auscultation, breath sounds equal bilaterally, chest nontender. Heart: S1S2, regular, negative for clicks, rubs, or overt murmur. Abdomen: Soft, nondistended, nontender. Negative for masses or hepatosplenomegaly. Negative for costovertebral tenderness. No rigidity, rebound , guarding. Pelvis: Stable nontender. Genitourinary: Deferred. Rectal: Deferred. Extremities: Atraumatic, negative for cords or calf pain. Neurovascular unremarkable. Neuro: Awake, alert, oriented. Cranial nerves II through XII unremarkable. Cerebellum unremarkable. Motor and sensory unremarkable throughout. Exam nonfocal. Notes: Blood pressure 174/56. Patient states he no longer has a headache. Diagnostics: CBC, CMP, troponin, EKG, chest x-ray Therapeutics: Clonidine 0.1 mg PO 1L NS IV Prescriptions: Impression: Hypertension Plan: Follow up with primary care provider Return to ED as needed as discussed Definitive disposition and diagnosis as appropriate pending reevaluation and review of above. - Related Data Allergies Allergy/AdvReac Type Severity Reaction Status Date / Time No Known Allergies Allergy Verified 09/26/18 12:50 Home Meds: Home Meds Calcium Acetate [PhosLo] 1,334 mg PO TIDAC 11/09/16 [History] FLUoxetine [PROzac] 10 mg PO BEDTIME 11/09/16 [History] Gabapentin [Neurontin] 200 mg PO BID 11/09/16 [History] LORazepam 0.5 mg PO DAILY PRN 11/09/16 [History] Metoprolol Tartrate [Lopressor] 50 mg PO BID 11/09/16 [History] Zolpidem [Ambien] 10 mg PO BEDTIME 11/09/16 [History] amLODIPine [Norvasc] 20 mg PO DAILY 11/09/16 [History] cloNIDine [Catapres] 0.2 mg PO BID PRN 11/09/16 [History] Aspirin [Halfprin] 81 mg PO BRK 01/08/17 [History] Insulin Aspart [Novolog] 4 unit SQ TIDAC 01/08/17 [History] atorvaSTATin Calcium [Atorvastatin Calcium] 20 mg PO BEDTIME 01/08/17 [History] Insulin Degludec [Tresiba] 40 unit SQ DAILY 09/14/18 [History] Lisinopril 10 mg PO DAILY 09/14/18 [History] PARoxetine [Paxil] 20 mg PO DAILY 09/14/18 [History] rOPINIRole [Requip] 2 mg PO DAILY 09/14/18 [History] Past Medical History - Past Health History Medical/Surgical History: Denies Medical/Surgical History Other HEENT History: wears glasses Cardiovascular History: Reports: Hypertension, Other (See Below) Other Cardiovascular History: transferred to [place] last Wednesday to cardiac issues. ACS Respiratory History: Reports: None Gastrointestinal History: Reports: None Genitourinary History: Reports: Acute Renal Failure, Chronic Renal Insuffiency Other Genitourinary History: pt on dialysis Musculoskeletal History: Reports: Fracture Other Musculoskeletal History: hx of fx right foot Neurological History: Reports: None Psychiatric History: Reports: Anxiety, Depression Endocrine/Metabolic History: Reports: Diabetes, Type I, Obesity/BMI 30+ Hematologic History: Reports: None Immunologic History: Reports: None Oncologic (Cancer) History: Reports: None Dermatologic History: Reports: None - Infectious Disease History Infectious Disease History: Reports: Measles, Mumps - Past Surgical History HEENT Surgical History: Reports: None Cardiovascular Surgical History: Reports: Other (See Below) Other Cardiovascular Surgeries/Procedures: Insertion of dialysis cathete and AV Shunt Respiratory Surgical History: Reports: None GI Surgical History: Reports: Appendectomy Male Surgical History: Reports: None Endocrine Surgical History: Reports: None Neurological Surgical History: Reports: None Musculoskeletal Surgical History: Reports: Shoulder Surgery Other Musculoskeletal Surgeries/Procedures:: right RTCR Oncologic Surgical History: Reports: None Social & Family History - Family History Family Medical History: Noncontributory - Caffeine Use Caffeine Use: Reports: Coffee Caffeine Use Comment: 1cup/day ED ROS GENERAL - Review of Systems Review Of Systems: ROS reveals no pertinent complaints other than HPI. ED EXAM, GENERAL - Physical Exam Exam: See Below Course - Vital Signs Last Recorded V/S: Last Vital Signs Temp 96.0 F 09/26/18 12:51 Pulse 64 09/26/18 13:48 Resp 16 09/26/18 13:48 BP 186/72 H 09/26/18 13:48 Pulse Ox 96 09/26/18 13:48 - Orders/Labs/Meds Orders: Active Orders 24 hr Category Date Time Status EKG Documentation Completion [RC] STAT Care 09/26/18 12:54 Active Sodium Chloride 0.9% [Normal Saline] 1,000 ml Med 09/26/18 14:06 Active IV STAT Medication Orders Sodium Chloride (Normal Saline) 1,000 mls @ 999 mls/hr IV STAT ONE Stop: 09/26/18 15:06 Last Admin: 09/26/18 14:16 Dose: 999 mls/hr Labs: Laboratory Tests 09/26/18 09/26/18 09/26/18 Range/Units 13:03 13:03 13:03 WBC 9.99 (4.0-11.0) K/uL RBC 4.08 L (4.50-5.90) M/uL Hgb 13.0 (13.0-17.0) g/dL Hct 38.1 (38.0-50.0) % MCV 93.4 (80.0-98.0) fL MCH 31.9 (27.0-32.0) pg MCHC 34.1 (31.0-37.0) g/dL RDW Std Deviation 43.4 (28.0-62.0) fl RDW Coeff of Robert 13 (11.0-15.0) % Plt Count 194 (150-400) K/uL MPV 11.10 (7.40-12.00) fL Neut % (Auto) 77.0 (48.0-80.0) % Lymph % (Auto) 10.1 L (16.0-40.0) % [place] % (Auto) 10.1 (0.0-15.0) % Eos % (Auto) 2.4 (0.0-7.0) % Baso % (Auto) 0.4 (0.0-1.5) % Neut # (Auto) 7.7 H (1.4-5.7) K/uL Lymph # (Auto) 1.0 (0.6-2.4) K/uL [place] # (Auto) 1.0 H (0.0-0.8) K/uL Eos # (Auto) 0.2 (0.0-0.7) K/uL Baso # (Auto) 0.0 (0.0-0.1) K/uL INR 1.05 Sodium 139 (136-148) mmol/L Potassium 4.2 (3.5-5.1) mmol/L Chloride 97 L (98-107) mmol/L Carbon Dioxide 33.8 H (21.0-32.0) mmol/L BUN 19 H (7.0-18.0) mg/dL Creatinine 4.9 H (0.8-1.3) mg/dL Est Cr Clr Drug Dosing 13.56 mL/min Estimated GFR (MDRD) 12.0 ml/min Glucose 131 H (74-106) mg/dL Calcium 9.6 (8.5-10.1) mg/dL Total Bilirubin 1.0 (0.2-1.0) mg/dL AST 12 L (15-37) IU/L ALT 8 L (14-63) IU/L Alkaline Phosphatase 59 (46-116) U/L Troponin I < 0.050 (0.000-0.056) ng/mL Total Protein 7.5 (6.4-8.2) g/dL Albumin 3.9 (3.4-5.0) g/dL Globulin 3.6 (2.6-4.0) g/dL Albumin/Globulin Ratio 1.1 (0.9-1.6) Meds: Medications Generic Name Dose Route Start Last Admin Trade Name Freq PRN Reason Stop Dose Admin Sodium Chloride 1,000 mls @ 999 mls/hr 09/26/18 14:06 09/26/18 14:16 Normal Saline IV 09/26/18 15:06 999 mls/hr STAT ONE Administration Discontinued Medications Generic Name Dose Route Start Last Admin Trade Name Freq PRN Reason Stop Dose Admin Clonidine HCl 0.1 mg 09/26/18 12:57 09/26/18 13:23 Catapres PO 09/26/18 12:58 0.1 mg ONETIME ONE Administration Departure - Departure Time of Disposition: 14:45 Disposition: Home, Self-Care 01 Condition: Good Clinical Impression: Hypertension Instructions: Hypertension, [id number] Referrals: PCP,Unknown [Primary Care Provider] - Forms: ED Department Discharge Additional Instructions: The following information is given to patients seen in the emergency department who are being discharged to home. This information is to outline your options for follow-up care. We provide all patients seen in our emergency department with a follow-up referral. The need for follow-up, as well as the timing and circumstances, are variable depending upon the specifics of your emergency department visit. If you don't have a primary care physician on staff, we will provide you with a referral. We always advise you to contact your personal physician following an emergency department visit to inform them of the circumstance of the visit and for follow-up with them and/or the need for any referrals to a consulting specialist. The emergency department will also refer you to a specialist when appropriate. This referral assures that you have the opportunity for follow-up care with a specialist. All of these measure are taken in an effort to provide you with optimal care, which includes your follow-up. Under all circumstances we always encourage you to contact your private physician who remains a resource for coordinating your care. When calling for follow-up care, please make the office aware that this follow-up is from your recent emergency room visit. If for any reason you are refused follow-up, please contact the [facility] Emergency Department at and asked to speak to the emergency department charge nurse. WOOD Mendoza [facility] [address] [place] [address] [facility] [address] [place] [id number] Follow up with primary care provide Return to ED as needed as discussed - My Orders Last 24 Hours: My Active Orders 09/26/18 12:54 EKG Documentation Completion [RC] STAT 09/26/18 14:06 Sodium Chloride 0.9% [Normal Saline] 1,000 ml IV STAT - Assessment/Plan Last 24 Hours: My Active Orders 09/26/18 12:54 EKG Documentation Completion [RC] STAT 09/26/18 14:06 Sodium Chloride 0.9% [Normal Saline] 1,000 ml IV STAT
[2018-09-26] MEDS ORDERED: cloNIDine 0.1 MG Tab PO ONE ×2 (12:57→15:15)
[2018-09-26 13:35] LABS: BLOOD UREA NITROGEN,BUN 19 mg/dL (7.0-18.0); CARBON DIOXIDE,CO2 33.8 mmol/L (21.0-32.0); CHLORIDE,CL 97 mmol/L (98-107); GLUCOSE RANDOM 131 mg/dL (74-106); POTASSIUM,K 4.2 mmol/L (3.5-5.1); SODIUM,NA 139 mmol/L (136-148)
[2018-09-26 13:48] VITALS: PULSE 64
--- NOTE | 2018-09-26 14:02 | CR ---
HISTORY: Hypertension. COMPARISON: 09/14/2018 FINDINGS: A portable erect AP view of the chest was obtained at 13 18 hours. The lungs remain clear. No focal or diffuse infiltrates are present. The heart remains normal in size. The mediastinum is normal in appearance. The osseous structures are normal in appearance for the patient`s age. IMPRESSION: Normal portable chest single view. Dictated by Terrance Spears MD @ Sep 26 2018 1:59PM Signed by Dr. Terrance Spears @ Sep 26 2018 2:00PM
[2018-09-26] MEDS ORDERED: Sodium Chloride 0.9% 1,000 ML IV ONE (14:06)
[2018-09-26 17:42] VITALS: BP 222/81
== END 2018-09-26 15:55 | disposition home or self-care (01) ==
LOC: MW.ED 12:47
DX: I12.9 Hypertensive chronic kidney disease with stage 1 through stage 4 chronic kidney disease, or unspecified chronic kidney disease (principal); N18.9 Chronic kidney disease, unspecified; E10.22 Type 1 diabetes mellitus with diabetic chronic kidney disease; F41.9 Anxiety disorder, unspecified; F32.9 Major depressive disorder, single episode, unspecified; Z79.899 Other long term (current) drug therapy; Z79.82 Long term (current) use of aspirin; Z79.4 Long term (current) use of insulin; Z99.2 Dependence on renal dialysis
CPT/HCPCS: 36415; 71045; 80053; 84484; 85025; 85610; 93005; 96360; 99284; A9270; J7040; 99283

== ENCOUNTER 2018-12-18 18:10 | Emergency (ER) | payer MEDICARE ==
[~2018-12-18 18:10] MED LIST changes: +Etomidate 2 MG/ML 20 ML SDV IVPUSH ONE; -Sodium Chloride 0.9% 1,000 ML IV SCH; -Sodium Chloride 0.9% 10 ML Syringe FLUSH PRN; -Sodium Chloride 0.9% 2.5 ML Syringe FLUSH PRN; -ceFAZolin 1 GM in Premix Bag 1 BAG IV ONE
[2018-12-18] MEDS ORDERED: Rocuronium 50 MG/5 ML Vial IVPUSH ONE (18:11)
[2018-12-18] MEDS ORDERED: Sodium Chloride 0.9% 10 ML Syringe FLUSH PRN (18:12)
[2018-12-18] MEDS ORDERED: Sodium Chloride 0.9% 2.5 ML Syringe FLUSH PRN (18:12)
[2018-12-18] MEDS ORDERED: Furosemide 40 MG/4 ML VIAL ONE (18:14)
[2018-12-18] MEDS ORDERED: Sodium Chloride 0.9% 1,000 ML IV ONE (18:15)
[2018-12-18] MEDS ORDERED: Nitroglycerin 2% Oint 1 GM UD Packet ONE (18:15)
[2018-12-18] MEDS ORDERED: Labetalol 100 MG/20 ML MDV ONE (18:26)
--- NOTE | 2018-12-18 18:32 | EDM.PDOC ---
ED HPI GENERAL MEDICAL PROBLEM - General Chief Complaint: Respiratory Problem Stated Complaint: TROUBLE BREATHING - Related Data Allergies Allergy/AdvReac Type Severity Reaction Status Date / Time No Known Allergies Allergy Verified 09/26/18 12:50 Home Meds: Home Meds Calcium Acetate [PhosLo] 1,334 mg PO TIDAC 11/09/16 [History] FLUoxetine [PROzac] 10 mg PO BEDTIME 11/09/16 [History] Gabapentin [Neurontin] 200 mg PO BID 11/09/16 [History] LORazepam 0.5 mg PO DAILY PRN 11/09/16 [History] Metoprolol Tartrate [Lopressor] 50 mg PO BID 11/09/16 [History] Zolpidem [Ambien] 10 mg PO BEDTIME 11/09/16 [History] amLODIPine [Norvasc] 20 mg PO DAILY 11/09/16 [History] cloNIDine [Catapres] 0.2 mg PO BID PRN 11/09/16 [History] Aspirin [Halfprin] 81 mg PO BRK 01/08/17 [History] Insulin Aspart [Novolog] 4 unit SQ TIDAC 01/08/17 [History] atorvaSTATin Calcium [Atorvastatin Calcium] 20 mg PO BEDTIME 01/08/17 [History] Insulin Degludec [Tresiba] 40 unit SQ DAILY 09/14/18 [History] Lisinopril 10 mg PO DAILY 09/14/18 [History] PARoxetine [Paxil] 20 mg PO DAILY 09/14/18 [History] rOPINIRole [Requip] 2 mg PO DAILY 09/14/18 [History] Past Medical History - Past Health History Medical/Surgical History: Denies Medical/Surgical History Other HEENT History: wears glasses Cardiovascular History: Reports: Hypertension, Other (See Below) Other Cardiovascular History: transferred to [place] last Wednesday to cardiac issues. ACS Respiratory History: Reports: None Gastrointestinal History: Reports: None Genitourinary History: Reports: Acute Renal Failure, Chronic Renal Insuffiency Other Genitourinary History: pt on dialysis Musculoskeletal History: Reports: Fracture Other Musculoskeletal History: hx of fx right foot Neurological History: Reports: None Psychiatric History: Reports: Anxiety, Depression Endocrine/Metabolic History: Reports: Diabetes, Type I, Obesity/BMI 30+ Hematologic History: Reports: None Immunologic History: Reports: None Oncologic (Cancer) History: Reports: None Dermatologic History: Reports: None - Infectious Disease History Infectious Disease History: Reports: Measles, Mumps - Past Surgical History HEENT Surgical History: Reports: None Cardiovascular Surgical History: Reports: Other (See Below) Other Cardiovascular Surgeries/Procedures: Insertion of dialysis cathete and AV Shunt Respiratory Surgical History: Reports: None GI Surgical History: Reports: Appendectomy Male Surgical History: Reports: None Endocrine Surgical History: Reports: None Neurological Surgical History: Reports: None Musculoskeletal Surgical History: Reports: Shoulder Surgery Other Musculoskeletal Surgeries/Procedures:: right RTCR Oncologic Surgical History: Reports: None Social & Family History - Family History Family Medical History: Noncontributory - Caffeine Use Caffeine Use: Reports: Coffee Caffeine Use Comment: 1cup/day Course - Orders/Labs/Meds Orders: Active Orders 24 hr Category Date Time Status Cardiac Monitoring [RC] . DIRECTED Care 12/18/18 18:12 Active EKG Documentation Completion [RC] STAT Care 12/18/18 18:12 Active Oxygen Therapy [RC] ASDIRECTED Care 12/18/18 18:12 Active Pulse Oximetry [RC] ASDIRECTED Care 12/18/18 18:12 Active Chest 1V Frontal [CR] Stat Exams 12/18/18 18:12 Ordered CBC WITH AUTO DIFF [HEME] Stat Lab 12/18/18 18:15 Received COMPREHENSIVE METABOLIC PN,CMP [CHEM] Stat Lab 12/18/18 18:15 Received INR,PT,PROTHROMBIN TIME [COAG] Stat Lab 12/18/18 18:15 Received TROPONIN I [CHEM] Stat Lab 12/18/18 18:15 Received Nitroglycerin/D5W [Nitroglycerin 25 MG/D5W 250 ML] 250 Med 12/18/18 18:45 Ordered ml IV TITRATE Sodium Chloride 0.9% [Saline Flush] Med 12/18/18 18:12 Active 10 ml FLUSH ASDIRECTED PRN Sodium Chloride 0.9% [Saline Flush] Med 12/18/18 18:12 Active 2.5 ml FLUSH ASDIRECTED PRN Saline Lock Insert [OM.PC] Stat Oth 12/18/18 18:12 Ordered Medication Orders Nitroglycerin/Dextrose (Nitroglycerin 25 Mg/D5w 250 Ml) 250 mls @ 3 mls/hr IV TITRATE MARITA Sodium Chloride (Saline Flush) 10 ml FLUSH ASDIRECTED PRN PRN Reason: Keep Vein Open Sodium Chloride (Saline Flush) 2.5 ml FLUSH ASDIRECTED PRN PRN Reason: Keep Vein Open Meds: Medications Generic Name Dose Route Start Last Admin Trade Name Freq PRN Reason Stop Dose Admin Nitroglycerin/Dextrose 250 mls @ 3 mls/hr 12/18/18 18:45 Nitroglycerin 25 Mg/D5w 250 Ml IV TITRATE MARITA 5 MCG/MIN Sodium Chloride 10 ml 12/18/18 18:12 Saline Flush FLUSH ASDIRECTED PRN Keep Vein Open Sodium Chloride 2.5 ml 12/18/18 18:12 Saline Flush FLUSH ASDIRECTED PRN Keep Vein Open Discontinued Medications Generic Name Dose Route Start Last Admin Trade Name Freq PRN Reason Stop Dose Admin Furosemide Confirm 12/18/18 18:14 Lasix Administered 12/18/18 18:15 Dose 40 mg .ROUTE .STK-MED ONE Propofol Confirm 12/18/18 18:24 Diprivan 50 Ml Administered 12/18/18 18:25 Dose 50 mls @ as directed .ROUTE .STK-MED ONE Labetalol HCl Confirm 12/18/18 18:26 Normodyne Administered 12/18/18 18:27 Dose 100 mg .ROUTE .STK-MED ONE Nitroglycerin Confirm 12/18/18 18:15 Nitro-Bid 2% Administered 12/18/18 18:16 Dose 1 gm .ROUTE .STK-MED ONE Departure - Discharge Information Referrals: PCP,None [Primary Care Provider] - - My Orders Last 24 Hours: My Active Orders 12/18/18 18:12 Cardiac Monitoring [RC] . DIRECTED EKG Documentation Completion [RC] STAT Oxygen Therapy [RC] ASDIRECTED Pulse Oximetry [RC] ASDIRECTED Chest 1V Frontal [CR] Stat Sodium Chloride 0.9% [Saline Flush] 10 ml FLUSH ASDIRECTED PRN Sodium Chloride 0.9% [Saline Flush] 2.5 ml FLUSH ASDIRECTED PRN Saline Lock Insert [OM.PC] Stat 12/18/18 18:15 CBC WITH AUTO DIFF [HEME] Stat COMPREHENSIVE METABOLIC PN,CMP [CHEM] Stat INR,PT,PROTHROMBIN TIME [COAG] Stat TROPONIN I [CHEM] Stat 12/18/18 18:45 Nitroglycerin/D5W [Nitroglycerin 25 MG/D5W 250 ML] 250 ml IV TITRATE - Assessment/Plan Last 24 Hours: My Active Orders 12/18/18 18:12 Cardiac Monitoring [RC] . DIRECTED EKG Documentation Completion [RC] STAT Oxygen Therapy [RC] ASDIRECTED Pulse Oximetry [RC] ASDIRECTED Chest 1V Frontal [CR] Stat Sodium Chloride 0.9% [Saline Flush] 10 ml FLUSH ASDIRECTED PRN Sodium Chloride 0.9% [Saline Flush] 2.5 ml FLUSH ASDIRECTED PRN Saline Lock Insert [OM.PC] Stat 12/18/18 18:15 CBC WITH AUTO DIFF [HEME] Stat COMPREHENSIVE METABOLIC PN,CMP [CHEM] Stat INR,PT,PROTHROMBIN TIME [COAG] Stat TROPONIN I [CHEM] Stat 12/18/18 18:45 Nitroglycerin/D5W [Nitroglycerin 25 MG/D5W 250 ML] 250 ml IV TITRATE
--- NOTE | 2018-12-18 18:36 | EDM.PDOC ---
ED HPI GENERAL MEDICAL PROBLEM - General Chief Complaint: Respiratory Problem Stated Complaint: TROUBLE BREATHING Time Seen by Provider: 12/18/18 18:25 Source of Information: Reports: Patient History Limitations: Reports: Physical Impairment, Respiratory Distress - History of Present Illness INITIAL COMMENTS - FREE TEXT/NARRATIVE: History of present illness: []Patient woke up this morning short of breath that has progressively worsened throughout the day. Patient is on dialysis and his last dialysis was 4 days ago and is due again tomorrow. Review of systems: As per history of present illness and below otherwise all systems reviewed and negative. Past medical history: As per history of present illness and as reviewed below otherwise noncontributory. Surgical history: As per history of present illness and as reviewed below otherwise noncontributory. Social history: No reported history of drug or alcohol abuse. Family history: As per history of present illness and as reviewed below otherwise noncontributory. Physical exam: General: Well developed, well nourished in respiratory distress, diaphoretic HEENT: Atraumatic, normocephalic, pupils reactive, negative for conjunctival pallor or scleral icterus, mucous membranes moist, throat clear, neck supple, nontender, trachea midline. Lungs: wall retractions, rales throughout Heart: tachycardic 150 Abdomen: NABS, Soft, nondistended, nontender. Negative for masses or hepatosplenomegaly. Negative for costovertebral tenderness. Pelvis: Stable nontender. Genitourinary: Deferred. Rectal: Deferred. Extremities: Atraumatic, negative for cords or calf pain. Neurovascular unremarkable. Neuro: Awake, alert, oriented. Cranial nerves II through XII unremarkable. Cerebellum unremarkable. Motor and sensory unremarkable throughout. Exam nonfocal. Skin:warm diaphoretic Diagnostics: initial blood pressure 245/145, heart rate 150s regular, chest x-ray bilateral congestion throughout, CBC, chemistry, troponin, Therapeutics: RSI intubation, etomidate, rocuronium, labetalol, ED Course: improved after intubation HR 94 regular, 178/98, 98%. Impression: respiratory failure, renal failure, hyperkalemia Prescriptions: none Plan: transfer to [facility] Dr. Barry accepts patient Definitive disposition and diagnosis as appropriate pending reevaluation and review of above. - Related Data Allergies Allergy/AdvReac Type Severity Reaction Status Date / Time No Known Allergies Allergy Verified 12/18/18 19:15 Home Meds: Home Meds Calcium Acetate [PhosLo] 1,334 mg PO TIDAC 11/09/16 [History] FLUoxetine [PROzac] 10 mg PO BEDTIME 11/09/16 [History] Gabapentin [Neurontin] 200 mg PO BID 11/09/16 [History] LORazepam 0.5 mg PO DAILY PRN 11/09/16 [History] Metoprolol Tartrate [Lopressor] 50 mg PO BID 11/09/16 [History] Zolpidem [Ambien] 10 mg PO BEDTIME 11/09/16 [History] amLODIPine [Norvasc] 20 mg PO DAILY 11/09/16 [History] cloNIDine [Catapres] 0.2 mg PO BID PRN 11/09/16 [History] Aspirin [Halfprin] 81 mg PO BRK 01/08/17 [History] Insulin Aspart [Novolog] 4 unit SQ TIDAC 01/08/17 [History] atorvaSTATin Calcium [Atorvastatin Calcium] 20 mg PO BEDTIME 01/08/17 [History] Insulin Degludec [Tresiba] 40 unit SQ DAILY 09/14/18 [History] Lisinopril 10 mg PO DAILY 09/14/18 [History] PARoxetine [Paxil] 20 mg PO DAILY 09/14/18 [History] rOPINIRole [Requip] 2 mg PO DAILY 09/14/18 [History] Past Medical History - Past Health History Medical/Surgical History: Denies Medical/Surgical History Other HEENT History: wears glasses Cardiovascular History: Reports: Hypertension, Other (See Below) Other Cardiovascular History: transferred to [place] last Wednesday to cardiac issues. ACS Respiratory History: Reports: None Gastrointestinal History: Reports: None Genitourinary History: Reports: Acute Renal Failure, Chronic Renal Insuffiency Other Genitourinary History: pt on dialysis Musculoskeletal History: Reports: Fracture Other Musculoskeletal History: hx of fx right foot Neurological History: Reports: None Psychiatric History: Reports: Anxiety, Depression Endocrine/Metabolic History: Reports: Diabetes, Type I, Obesity/BMI 30+ Hematologic History: Reports: None Immunologic History: Reports: None Oncologic (Cancer) History: Reports: None Dermatologic History: Reports: None - Infectious Disease History Infectious Disease History: Reports: Measles, Mumps - Past Surgical History HEENT Surgical History: Reports: None Cardiovascular Surgical History: Reports: Other (See Below) Other Cardiovascular Surgeries/Procedures: Insertion of dialysis cathete and AV Shunt Respiratory Surgical History: Reports: None GI Surgical History: Reports: Appendectomy Male Surgical History: Reports: None Endocrine Surgical History: Reports: None Neurological Surgical History: Reports: None Musculoskeletal Surgical History: Reports: Shoulder Surgery Other Musculoskeletal Surgeries/Procedures:: right RTCR Oncologic Surgical History: Reports: None Social & Family History - Family History Family Medical History: Noncontributory - Caffeine Use Caffeine Use: Reports: Coffee Caffeine Use Comment: 1cup/day ED ROS GENERAL - Review of Systems Review Of Systems: See Below ED EXAM, GENERAL - Physical Exam Exam: See Below ED RESPIRATORY PROCEDURES - Endotracheal Intubation ET Intubation Indication: Respiratory Failure Preparation: Suction, Balloon Tested, BVM Set Up Anesthesia Meds: Etomidate, Rocuronium Placement: Orotracheal Cords Visualized: Yes ETT Size In mm: 7.5 (23 at lip) Number of Attempts: 1 Confirmed By: CO2 Indicator, Bilateral Breath Sounds, Chest Xray Tube Secured By: By Provider Course - Vital Signs Last Recorded V/S: Last Vital Signs Temp Pulse 150 H 12/18/18 18:10 Resp 30 H 12/18/18 18:10 BP 246/155 H 12/18/18 18:10 Pulse Ox 70 L 12/18/18 18:10 - Orders/Labs/Meds Orders: Active Orders 24 hr Category Date Time Status Cardiac Monitoring [RC] . DIRECTED Care 12/18/18 18:12 Active EKG Documentation Completion [RC] STAT Care 12/18/18 18:12 Active Gastrointestinal Tube Mgmt [RC] ASDIRECTED Care 12/18/18 19:22 Active Insert Dumont Catheter [Insert Urinary Catheter] [OM.PC] Care 12/18/18 19:30 Ordered Q24H Oxygen Therapy [RC] ASDIRECTED Care 12/18/18 18:12 Active Pulse Oximetry [RC] ASDIRECTED Care 12/18/18 18:12 Active RASS Sedation Scale [RC] ASDIRECTED Care 12/18/18 19:26 Active Urinary Catheter Assessment [RC] ASDIRECTED Care 12/18/18 19:22 Active Propofol [Diprivan 100 ML] 100 ml Med 12/18/18 19:30 Active IV TITRATE Sodium Chloride 0.9% [Saline Flush] Med 12/18/18 18:12 Active 10 ml FLUSH ASDIRECTED PRN Sodium Chloride 0.9% [Saline Flush] Med 12/18/18 18:12 Active 2.5 ml FLUSH ASDIRECTED PRN Desired Level of Sedation (RASS) [AST] Click To Edit Oth 12/18/18 19:26 Ordered Saline Lock Insert [OM.PC] Stat Oth 12/18/18 18:12 Ordered Medication Orders Propofol (Diprivan 100 Ml) 100 mls @ 2.385 mls/hr IV TITRATE MARITA; Protocol Last Admin: 12/18/18 19:28 Dose: 5 mcg/kg/min, 2.385 mls/hr Sodium Chloride (Saline Flush) 10 ml FLUSH ASDIRECTED PRN PRN Reason: Keep Vein Open Sodium Chloride (Saline Flush) 2.5 ml FLUSH ASDIRECTED PRN PRN Reason: Keep Vein Open Labs: Laboratory Tests 12/18/18 12/18/18 12/18/18 Range/Units 18:15 18:15 18:15 WBC 17.19 H (4.0-11.0) K/uL RBC 3.58 L (4.50-5.90) M/uL Hgb 10.9 L (13.0-17.0) g/dL Hct 33.8 L (38.0-50.0) % MCV 94.4 (80.0-98.0) fL MCH 30.4 (27.0-32.0) pg MCHC 32.2 (31.0-37.0) g/dL RDW Std Deviation 53.0 (28.0-62.0) fl RDW Coeff of Robert 15 (11.0-15.0) % Plt Count 315 (150-400) K/uL MPV 11.30 (7.40-12.00) fL Neut % (Auto) 79.8 (48.0-80.0) % Lymph % (Auto) 11.2 L (16.0-40.0) % [place] % (Auto) 6.7 (0.0-15.0) % Eos % (Auto) 1.8 (0.0-7.0) % Baso % (Auto) 0.5 (0.0-1.5) % Neut # (Auto) 13.7 H (1.4-5.7) K/uL Lymph # (Auto) 1.9 (0.6-2.4) K/uL [place] # (Auto) 1.2 H (0.0-0.8) K/uL Eos # (Auto) 0.3 (0.0-0.7) K/uL Baso # (Auto) 0.1 (0.0-0.1) K/uL Nucleated RBC % 0.0 /100WBC Nucleated RBCs # 0 K/uL INR 1.01 Sodium 146 (136-148) mmol/L Potassium 6.1 H (3.5-5.1) mmol/L Chloride 105 (98-107) mmol/L Carbon Dioxide 23.5 (21.0-32.0) mmol/L BUN 96 H (7.0-18.0) mg/dL Creatinine 14.0 H (0.8-1.3) mg/dL Est Cr Clr Drug Dosing TNP Estimated GFR (MDRD) 3.6 ml/min Glucose 205 H (74-106) mg/dL Calcium 9.8 (8.5-10.1) mg/dL Total Bilirubin 0.6 (0.2-1.0) mg/dL AST 10 L (15-37) IU/L ALT 17 (14-63) IU/L Alkaline Phosphatase 130 H (46-116) U/L Troponin I 0.191 H* (0.000-0.056) ng/mL Total Protein 7.9 (6.4-8.2) g/dL Albumin 4.1 (3.4-5.0) g/dL Globulin 3.8 (2.6-4.0) g/dL Albumin/Globulin Ratio 1.1 (0.9-1.6) Meds: Medications Generic Name Dose Route Start Last Admin Trade Name Freq PRN Reason Stop Dose Admin Propofol 100 mls @ 2.385 mls/hr 12/18/18 19:30 12/18/18 19:28 Diprivan 100 Ml IV 5 mcg/kg/min TITRATE MARITA 2.385 mls/hr Administration Protocol 5 MCG/KG/MIN Sodium Chloride 10 ml 12/18/18 18:12 Saline Flush FLUSH ASDIRECTED PRN Keep Vein Open Sodium Chloride 2.5 ml 12/18/18 18:12 Saline Flush FLUSH ASDIRECTED PRN Keep Vein Open Discontinued Medications Generic Name Dose Route Start Last Admin Trade Name Freq PRN Reason Stop Dose Admin Etomidate 30 mg 12/18/18 18:10 12/18/18 19:29 Amidate IVPUSH 12/18/18 18:11 30 mg ONETIME ONE Administration Furosemide Confirm 12/18/18 18:14 12/18/18 19:27 Lasix Administered 12/18/18 18:15 Not Given Dose 40 mg .ROUTE .STK-MED ONE Furosemide 40 mg 12/18/18 19:25 12/18/18 19:28 Lasix IVPUSH 12/18/18 19:26 40 mg NOW ONE Administration Propofol Confirm 12/18/18 18:24 12/18/18 19:27 Diprivan 50 Ml Administered 12/18/18 18:25 Not Given Dose 50 mls @ as directed .ROUTE .STK-MED ONE Nitroglycerin/Dextrose 25 mg in 250 mls @ 3 mls/hr 12/18/18 18:45 Nitroglycerin 25 Mg/D5w 250 Ml IV TITRATE MARITA 5 MCG/MIN Sodium Chloride 1,000 mls @ 999 mls/hr 12/18/18 18:15 12/18/18 19:28 Normal Saline IV 12/18/18 19:15 999 mls/hr STAT ONE Administration Labetalol HCl Confirm 12/18/18 18:26 12/18/18 19:27 Normodyne Administered 12/18/18 18:27 Not Given Dose 100 mg .ROUTE .STK-MED ONE Labetalol HCl 20 mg 12/18/18 19:25 12/18/18 19:28 Normodyne IVPUSH 12/18/18 19:26 20 mg ONETIME ONE Administration Protocol Nitroglycerin Confirm 12/18/18 18:15 12/18/18 18:57 Nitro-Bid 2% Administered 12/18/18 18:16 Not Given Dose 1 gm .ROUTE .STK-MED ONE Rocuronium [place] 100 mg 12/18/18 18:11 12/18/18 19:28 Zemuron IVPUSH 12/18/18 18:12 100 mg ONETIME ONE Administration Departure - Departure Time of Disposition: 19:09 Disposition: Home, Self-Care 01 Condition: Critical Clinical Impression: Acute renal failure on dialysis Respiratory failure Qualifiers: Chronicity: acute Respiratory failure complication: hypoxia Qualified Code(s): J96.01 - Acute respiratory failure with hypoxia Clinical Impression: (Ruled Out): Respiratory distress - Discharge Information *PRESCRIPTION DRUG MONITORING PROGRAM REVIEWED*: Not Applicable *COPY OF PRESCRIPTION DRUG MONITORING REPORT IN PATIENT MARY: Not Applicable Referrals: PCP,None [Primary Care Provider] - Forms: ED Department Discharge - My Orders Last 24 Hours: My Active Orders 12/18/18 19:22 Gastrointestinal Tube Mgmt [RC] ASDIRECTED Urinary Catheter Assessment [RC] ASDIRECTED 12/18/18 19:26 RASS Sedation Scale [RC] ASDIRECTED Desired Level of Sedation (RASS) [AST] Click To Edit 12/18/18 19:30 Insert Dumont Catheter [Insert Urinary Catheter] [OM.PC] Q24H Propofol [Diprivan 100 ML] 100 ml IV TITRATE - Assessment/Plan Last 24 Hours: My Active Orders 12/18/18 19:22 Gastrointestinal Tube Mgmt [RC] ASDIRECTED Urinary Catheter Assessment [RC] ASDIRECTED 12/18/18 19:26 RASS Sedation Scale [RC] ASDIRECTED Desired Level of Sedation (RASS) [AST] Click To Edit 12/18/18 19:30 Insert Dumont Catheter [Insert Urinary Catheter] [OM.PC] Q24H Propofol [Diprivan 100 ML] 100 ml IV TITRATE
[2018-12-18] MEDS ORDERED: Nitroglycerin/D5W 25 MG/250 ML BOTTLE IV SCH (18:45)
[2018-12-18 19:01] LABS: BLOOD UREA NITROGEN,BUN 96 mg/dL (7.0-18.0); CARBON DIOXIDE,CO2 23.5 mmol/L (21.0-32.0); CHLORIDE,CL 105 mmol/L (98-107); GLUCOSE RANDOM 205 mg/dL (74-106); POTASSIUM,K 6.1 mmol/L (3.5-5.1); SODIUM,NA 146 mmol/L (136-148)
--- NOTE | 2018-12-18 19:07 | CR ---
INDICATION: Pt w/cp. Post intubation. Indication: Chest pain. Post intubation. Technique: Chest one-view portable. Comparison: 09/26/2018. Findings: The patient is intubated. The endotracheal tube tip is 5.2 cm above the susan. Diffuse interstitial type opacities are present in both lungs, along with Tay B lines. This suggests pulmonary edema. The left lateral costophrenic sulcus is collimated off the field of view. There is no pneumothorax. The osseous structures are intact. Heart size is normal given portable technique. Impression: Endotracheal tube tip is appropriately positioned above the susan. Dictated by John Lucio MD @ 12/18/2018 7:06:00 PM Dictated by: John Lucio MD @ 12/18/2018 19:06:06 (Electronically Signed)
[2018-12-18 19:20] VITALS: BP 246/155; PULSE 150
[2018-12-18] MEDS ORDERED: Labetalol 100 MG/20 ML MDV IVPUSH ONE (19:25)
[2018-12-18] MEDS ORDERED: Furosemide 40 MG/4 ML VIAL IVPUSH ONE (19:25)
== END 2018-12-18 19:05 ==
LOC: MW.ED 18:10
DX: J96.01 Acute respiratory failure with hypoxia (principal); N17.9 Acute kidney failure, unspecified; E87.5 Hyperkalemia; I12.9 Hypertensive chronic kidney disease with stage 1 through stage 4 chronic kidney disease, or unspecified chronic kidney disease; N18.9 Chronic kidney disease, unspecified; E10.9 Type 1 diabetes mellitus without complications; E66.9 Obesity, unspecified; F32.9 Major depressive disorder, single episode, unspecified; F41.9 Anxiety disorder, unspecified; Z79.4 Long term (current) use of insulin; Z79.82 Long term (current) use of aspirin; Z79.899 Other long term (current) drug therapy; Z99.2 Dependence on renal dialysis
CPT/HCPCS: 31500; 36415; 51702; 71045; 80053; 84484; 85025; 85610; 96361; 96374; 96375; 99285; J1940; J2704; J3490; J7040

== ENCOUNTER 2018-12-28 18:21 | Emergency (ER) | payer MEDICARE, MEDICAID ==
[2018-12-28] MEDS ORDERED: Sodium Chloride 0.9% 1,000 ML IV ONE (18:24)
[2018-12-28] MEDS ORDERED: Aspirin 81 MG Tab.Chew PO ONE (18:24)
[2018-12-28 19:20] LABS: BLOOD UREA NITROGEN,BUN 14 mg/dL (7.0-18.0); CHLORIDE,CL 96 mmol/L (98-107); GLUCOSE RANDOM 148 mg/dL (74-106); POTASSIUM,K 4.3 mmol/L (3.5-5.1); SODIUM,NA 137 mmol/L (136-148)
--- NOTE | 2018-12-28 19:31 | CR ---
INDICATION: chest pain TECHNIQUE: Chest 1 view. COMPARISON: 12/18/18 FINDINGS: Cardiovascular and mediastinum: Heart size and vasculature are normal in caliber and appearance. Mediastinum is within normal limits. Lungs and pleural space: Lungs are clear. No sign of infiltrate or mass. No sign of pleural effusion. No pneumothorax. Bones and soft tissues: No significant findings. IMPRESSION: Unremarkable chest. Dictated by: Alejo Doherty MD @ 12/28/2018 19:28:32 (Electronically Signed)
[2018-12-28] MEDS ORDERED: Piperacillin/Tazobactam 3.375 GM in Sodium Chloride 0.9% 50 ML IV ONE (19:37)
[2018-12-28] MEDS ORDERED: Acetaminophen 500 MG Tab PO ONE (20:16)
--- NOTE | 2018-12-28 21:25 | EDM.PDOC ---
ED HPI GENERAL MEDICAL PROBLEM - General Chief Complaint: Chest Pain Stated Complaint: CHEST PAIN Time Seen by Provider: 12/28/18 18:24 Source of Information: Reports: Patient History Limitations: Reports: No Limitations - History of Present Illness INITIAL COMMENTS - FREE TEXT/NARRATIVE: HISTORY AND PHYSICAL: History of present illness: Patient is a 68-year-old male presents to the ED today with concern of chest pain over the past few hours. Patient states he had dialysis this morning and started having the chest discomfort right after dialysis when he got home. Patient states he also has felt cold and like he had the chills but he has not checked his temperature at home. Patient also has a history of hypertension, chronic renal disease, acute coronary syndrome, and type 2 diabetes. Patient states he does not make much urine but has a small amount each day. He states he has not taken anything for her symptoms. Patient denies shortness of breath, or cough. Denies headache, neck stiff ness, change in vision, syncope, or near syncope. Denies nausea, vomiting, abdominal pain, diarrhea, constipation, or dysuria. Has not noted any blood in urine or stool. Review of systems: As per history of present illness and below otherwise all systems reviewed and negative. Past medical history: As per history of present illness and as reviewed below otherwise noncontributory. Surgical history: As per history of present illness and as reviewed below otherwise noncontributory. Social history: See social history for further information Family history: As per history of present illness and as reviewed below otherwise noncontributory. Physical exam: General: Patient is alert, oriented, and in no acute distress. Patient laying comfortably on exam table HEENT: Atraumatic, normocephalic, pupils equal and reactive bilaterally, negative for conjunctival pallor or scleral icterus, mucous membranes moist, TMs normal bilaterally, throat clear, neck supple, nontender, trachea midline. No drooling or trismus noted. No meningeal signs. No hot potato voice noted. Lungs: Clear to auscultation, breath sounds equal bilaterally, chest nontender. Heart: S1S2, regular rate and rhythm without overt murmur Abdomen: Soft, nondistended, nontender. Negative for masses or hepatosplenomegaly. Negative for costovertebral tenderness. Pelvis: Stable nontender. Genitourinary: Deferred. Rectal: Deferred. Skin: Intact, warm, dry. No lesions or rashes noted. Extremities: Atraumatic, negative for cords or calf pain. Neurovascular unremarkable. Neuro: Awake, alert, oriented. Cranial nerves II through XII unremarkable. Cerebellum unremarkable. Motor and sensory unremarkable throughout. Exam nonfocal. Notes: Dr. Cullen verbally involved in patient care. Dr. Joel, [facility], consulted on patient and accepting of transfer. EMS was arranged. As patient leaving with EMS, O2 on RA dropped to 86%. Does come up to 97% on 3L NC, Voices understanding and is agreeable to plan of care. Denies any further questions or concerns at this time. Diagnostics: CBC, CMP, UA, EKG, chest x-ray, troponin, lactate, blood cultures 2 Therapeutics: ASA, Tylenol, Saline, Zosyn, Vancomycin Impression: Sepsis, etiology unknown Chronic renal disease, on dialysis Plan: 1. Transfer to Dr. Joel via EMS to [facility] Definitive disposition and diagnosis as appropriate pending reevaluation and review of above. Chest Pain Score (Numeric/FACES): 7 - Related Data Allergies Allergy/AdvReac Type Severity Reaction Status Date / Time No Known Allergies Allergy Verified 12/28/18 18:30 Home Meds: Home Meds Calcium Acetate [PhosLo] 1,334 mg PO TIDAC 11/09/16 [History] FLUoxetine [PROzac] 10 mg PO BEDTIME 11/09/16 [History] Gabapentin [Neurontin] 200 mg PO BID 11/09/16 [History] LORazepam 0.5 mg PO DAILY PRN 11/09/16 [History] Metoprolol Tartrate [Lopressor] 50 mg PO BID 11/09/16 [History] Zolpidem [Ambien] 10 mg PO BEDTIME 11/09/16 [History] amLODIPine [Norvasc] 20 mg PO DAILY 11/09/16 [History] cloNIDine [Catapres] 0.2 mg PO BID PRN 11/09/16 [History] Aspirin [Halfprin] 81 mg PO BRK 01/08/17 [History] Insulin Aspart [Novolog] 4 unit SQ TIDAC 01/08/17 [History] atorvaSTATin Calcium [Atorvastatin Calcium] 20 mg PO BEDTIME 01/08/17 [History] Insulin Degludec [Tresiba] 40 unit SQ DAILY 09/14/18 [History] Lisinopril 10 mg PO DAILY 09/14/18 [History] PARoxetine [Paxil] 20 mg PO DAILY 09/14/18 [History] rOPINIRole [Requip] 2 mg PO DAILY 09/14/18 [History] Past Medical History - Past Health History Medical/Surgical History: Denies Medical/Surgical History HEENT History: Reports: Other (See Below) Other HEENT History: wears glasses Cardiovascular History: Reports: Hypertension, Other (See Below) Other Cardiovascular History: transferred to [place] last Wednesday to cardiac issues. ACS Respiratory History: Reports: Intubation, Previous Gastrointestinal History: Reports: None Genitourinary History: Reports: Acute Renal Failure, Chronic Renal Insuffiency Other Genitourinary History: pt on dialysis Musculoskeletal History: Reports: Fracture Other Musculoskeletal History: hx of fx right foot Neurological History: Reports: None Psychiatric History: Reports: Anxiety, Depression Endocrine/Metabolic History: Reports: Diabetes, Type I, Obesity/BMI 30+ Hematologic History: Reports: None Immunologic History: Reports: None Oncologic (Cancer) History: Reports: None Dermatologic History: Reports: None - Infectious Disease History Infectious Disease History: Reports: Measles, Mumps - Past Surgical History HEENT Surgical History: Reports: None Cardiovascular Surgical History: Reports: Other (See Below) Other Cardiovascular Surgeries/Procedures: Insertion of dialysis cathete and AV Shunt Respiratory Surgical History: Reports: Other (See Below) GI Surgical History: Reports: Appendectomy Male Surgical History: Reports: None Endocrine Surgical History: Reports: None Neurological Surgical History: Reports: None Musculoskeletal Surgical History: Reports: Shoulder Surgery Other Musculoskeletal Surgeries/Procedures:: right RTCR Oncologic Surgical History: Reports: None Social & Family History - Family History Family Medical History: Noncontributory - Tobacco Use Smoking Status *Q: Never Smoker Second Hand Smoke Exposure: No - Caffeine Use Caffeine Use: Reports: Coffee Caffeine Use Comment: 1cup/day - Recreational Drug Use Recreational Drug Use: No ED ROS GENERAL - Review of Systems Review Of Systems: Comprehensive ROS is negative, except as noted in HPI. ED EXAM, GENERAL - Physical Exam Exam: See Below (See dictation) Course - Vital Signs Last Recorded V/S: Last Vital Signs Temp 101.7 F H 12/28/18 20:29 Pulse 96 12/28/18 19:52 Resp 20 12/28/18 19:52 BP 190/77 H 12/28/18 19:52 Pulse Ox 96 12/28/18 19:52 - Orders/Labs/Meds Orders: Active Orders 24 hr Category Date Time Status EKG Documentation Completion [RC] STAT Care 12/28/18 18:24 Active CULTURE BLOOD [BC] Stat Lab 12/28/18 18:30 Results CULTURE BLOOD [BC] Stat Lab 12/28/18 19:10 Results UA RFX VIVI AND CULT IF INDIC [URIN] Stat Lab 12/28/18 18:24 Ordered Blood Culture x2 Reflex Set [OM.PC] Stat Oth 12/28/18 18:25 Ordered Labs: Laboratory Tests 12/28/18 12/28/18 12/28/18 Range/Units 18:30 18:30 18:30 WBC 24.18 H (4.0-11.0) K/uL RBC 3.52 L (4.50-5.90) M/uL Hgb 11.0 L (13.0-17.0) g/dL Hct 32.2 L (38.0-50.0) % MCV 91.5 (80.0-98.0) fL MCH 31.3 (27.0-32.0) pg MCHC 34.2 (31.0-37.0) g/dL RDW Std Deviation 49.0 (28.0-62.0) fl RDW Coeff of Robert 15 (11.0-15.0) % Plt Count 278 (150-400) K/uL MPV 10.80 (7.40-12.00) fL Neut % (Auto) 89.3 H (48.0-80.0) % Lymph % (Auto) 4.5 L (16.0-40.0) % [place] % (Auto) 5.3 (0.0-15.0) % Eos % (Auto) 0.7 (0.0-7.0) % Baso % (Auto) 0.2 (0.0-1.5) % Neut # (Auto) 21.6 H (1.4-5.7) K/uL Lymph # (Auto) 1.1 (0.6-2.4) K/uL [place] # (Auto) 1.3 H (0.0-0.8) K/uL Eos # (Auto) 0.2 (0.0-0.7) K/uL Baso # (Auto) 0.1 (0.0-0.1) K/uL Nucleated RBC % 0.0 /100WBC Nucleated RBCs # 0 K/uL INR Lactate 2.7 H (0.20-2.00) mmol/L Sodium 137 (136-148) mmol/L Potassium 4.3 (3.5-5.1) mmol/L Chloride 96 L (98-107) mmol/L Carbon Dioxide 29.0 (21.0-32.0) mmol/L BUN 14 (7.0-18.0) mg/dL Creatinine 4.8 H (0.8-1.3) mg/dL Est Cr Clr Drug Dosing 14.15 mL/min Estimated GFR (MDRD) 12.2 ml/min Glucose 148 H (74-106) mg/dL Calcium 9.0 (8.5-10.1) mg/dL Total Bilirubin 0.5 (0.2-1.0) mg/dL AST 31 (15-37) IU/L ALT 42 (14-63) IU/L Alkaline Phosphatase 109 (46-116) U/L Troponin I < 0.050 (0.000-0.056) ng/mL Total Protein 7.7 (6.4-8.2) g/dL Albumin 3.7 (3.4-5.0) g/dL Globulin 4.0 (2.6-4.0) g/dL Albumin/Globulin Ratio 0.9 (0.9-1.6) 12/28/18 Range/Units 19:10 WBC (4.0-11.0) K/uL RBC (4.50-5.90) M/uL Hgb (13.0-17.0) g/dL Hct (38.0-50.0) % MCV (80.0-98.0) fL MCH (27.0-32.0) pg MCHC (31.0-37.0) g/dL RDW Std Deviation (28.0-62.0) fl RDW Coeff of Robert (11.0-15.0) % Plt Count (150-400) K/uL MPV (7.40-12.00) fL Neut % (Auto) (48.0-80.0) % Lymph % (Auto) (16.0-40.0) % [place] % (Auto) (0.0-15.0) % Eos % (Auto) (0.0-7.0) % Baso % (Auto) (0.0-1.5) % Neut # (Auto) (1.4-5.7) K/uL Lymph # (Auto) (0.6-2.4) K/uL [place] # (Auto) (0.0-0.8) K/uL Eos # (Auto) (0.0-0.7) K/uL Baso # (Auto) (0.0-0.1) K/uL Nucleated RBC % /100WBC Nucleated RBCs # K/uL INR 0.97 Lactate (0.20-2.00) mmol/L Sodium (136-148) mmol/L Potassium (3.5-5.1) mmol/L Chloride (98-107) mmol/L Carbon Dioxide (21.0-32.0) mmol/L BUN (7.0-18.0) mg/dL Creatinine (0.8-1.3) mg/dL Est Cr Clr Drug Dosing mL/min Estimated GFR (MDRD) ml/min Glucose (74-106) mg/dL Calcium (8.5-10.1) mg/dL Total Bilirubin (0.2-1.0) mg/dL AST (15-37) IU/L ALT (14-63) IU/L Alkaline Phosphatase (46-116) U/L Troponin I (0.000-0.056) ng/mL Total Protein (6.4-8.2) g/dL Albumin (3.4-5.0) g/dL Globulin (2.6-4.0) g/dL Albumin/Globulin Ratio (0.9-1.6) Meds: Medications Discontinued Medications Generic Name Dose Route Start Last Admin Trade Name Freq PRN Reason Stop Dose Admin Acetaminophen 1,000 mg 12/28/18 20:16 12/28/18 20:29 Tylenol Extra Strength PO 12/28/18 20:17 1,000 mg ONETIME ONE Administration Aspirin 324 mg 12/28/18 18:24 12/28/18 18:45 Aspirin PO 12/28/18 18:25 324 mg ONETIME ONE Administration Sodium Chloride 1,000 mls @ 999 mls/hr 12/28/18 18:24 12/28/18 18:45 Normal Saline IV 12/28/18 19:24 999 mls/hr BOLUS ONE Administration Piperacillin Sod/Tazobactam 50 mls @ 100 mls/hr 12/28/18 19:37 12/28/18 20:15 Sod 3.375 gm/ Sodium Chloride IV 12/28/18 20:06 100 mls/hr ONETIME ONE Administration Vancomycin HCl 1 gm/ Sodium 250 mls @ 166 mls/hr 12/28/18 19:38 12/28/18 20: 29 Chloride IV 12/28/18 21:08 166 mls/hr ONETIME ONE Administration Departure - Departure Time of Disposition: 21:27 Disposition: DC/[facility] to [facility] 02 Clinical Impression: Sepsis Qualifiers: Sepsis type: sepsis due to unspecified organism Sepsis acute organ dysfunction status: unspecified Qualified Code(s): A41.9 - Sepsis, unspecified organism Chronic renal disease Qualifiers: Chronic kidney disease stage: on chronic dialysis Qualified Code(s): N18.6 - End stage renal disease; Z99.2 - Dependence on renal dialysis - Discharge Information Referrals: PCP,None [Primary Care Provider] - Forms: ED Department Discharge - My Orders Last 24 Hours: My Active Orders 12/28/18 18:24 EKG Documentation Completion [RC] STAT UA RFX VIVI AND CULT IF INDIC [URIN] Stat 12/28/18 18:25 Blood Culture x2 Reflex Set [OM.PC] Stat 12/28/18 18:30 CULTURE BLOOD [BC] Stat 12/28/18 19:10 CULTURE BLOOD [BC] Stat - Assessment/Plan Last 24 Hours: My Active Orders 12/28/18 18:24 EKG Documentation Completion [RC] STAT UA RFX VIVI AND CULT IF INDIC [URIN] Stat 12/28/18 18:25 Blood Culture x2 Reflex Set [OM.PC] Stat 12/28/18 18:30 CULTURE BLOOD [BC] Stat 12/28/18 19:10 CULTURE BLOOD [BC] Stat
[2018-12-28 23:28] VITALS: BP 197/84; PULSE 97
== END 2018-12-28 22:30 ==
LOC: MW.ED 18:21
DX: A41.9 Sepsis, unspecified organism (principal); R65.20 Severe sepsis without septic shock; I12.0 Hypertensive chronic kidney disease with stage 5 chronic kidney disease or end stage renal disease; E10.22 Type 1 diabetes mellitus with diabetic chronic kidney disease; N18.6 End stage renal disease; Z99.2 Dependence on renal dialysis; F41.9 Anxiety disorder, unspecified; F32.9 Major depressive disorder, single episode, unspecified; E66.9 Obesity, unspecified; Z68.27 Body mass index [BMI] 27.0-27.9, adult; Z79.899 Other long term (current) drug therapy
CPT/HCPCS: 71045; 80053; 83605; 84484; 85025; 85610; 87040; 93005; 96361; 96365; 96366; 96375; 99285; A9270; J2543; J3370; J7040; J7050; 99284; J7030

== ENCOUNTER 2019-03-20 13:45 | Emergency (ER) | payer MEDICARE ==
[2019-03-20] MEDS ORDERED: Sodium Chloride 0.9% 1,000 ML IV ONE ×2 (14:00→16:36)
[2019-03-20] MEDS ORDERED: Ondansetron 4 MG/2 ML SDV IVPUSH ONE (14:05)
--- NOTE | 2019-03-20 14:08 | EDM.PDOC ---
ED HPI GENERAL MEDICAL PROBLEM - General Chief Complaint: General Stated Complaint: CHILLS, NOT FEELING WELL Time Seen by Provider: 03/20/19 13:52 Source of Information: Reports: Patient, Family History Limitations: Reports: No Limitations - History of Present Illness INITIAL COMMENTS - FREE TEXT/NARRATIVE: HISTORY AND PHYSICAL: History of present illness: Patient is a 68-year-old male who presents to the emergency room with complaints of chills, nausea, vomiting and diarrhea. He states symptoms have been ongoing for approximately 2 to 3 weeks. He states he was seen in dialysis this morning and was encouraged to check into the emergency room after he told them about his symptoms. Patient reports he also has not been taking many of his medications as the easley of these recently have gone up, including his insulin. Has not taken his insulin in approximately 1 week. Past medical history of chronic renal failure, hypertension, and diabetes - insulin dependent. Patient denies any headache, change in vision, syncope or near syncope. Denies any chest pain, back pain, shortness of breath or cough. Has not noted any blood in urine or stool. Patient has been been trying to keep sips of fluids down although has been too fearful to eat as he has been vomiting. No recent travel or exposure to anyone who has been ill. PCP: Dr Castanon at [facility]. Review of systems: As per history of present illness and below otherwise all systems reviewed and negative. Past medical history: As per history of present illness and as reviewed below otherwise noncontributory. Surgical history: As per history of present illness and as reviewed below otherwise noncontributory. Social history: See social history for further information Family history: As per history of present illness and as reviewed below otherwise noncontributory. Physical exam: General: Well-developed and well-nourished 68-year-old male. Alert and oriented. Chronically ill appearing, tremulus and anxious but nontoxic- appearing. at bedside. BP is elvated (states he hasn't taken his HTN medications yet today) HEENT: Atraumatic, normocephalic, pupils equal and reactive bilaterally, negative for conjunctival pallor or scleral icterus, mucous membranes dry/tacky , TMs normal bilaterally, throat clear, neck supple, nontender, trachea midline. No drooling or trismus noted. No meningeal signs. No hot potato voice noted. Lungs: Clear to auscultation, breath sounds equal bilaterally, chest nontender. Heart: S1S2, regular rate and rhythm without overt murmur Abdomen: Soft, nondistended, nontender. Negative for masses or hepatosplenomegaly. Negative for costovertebral tenderness. Pelvis: Stable nontender. Skin: Intact, warm, dry. No lesions or rashes noted. Extremities: Atraumatic, moves all extremities per self without difficulty or deficits, negative for cords or calf pain. Neurovascular unremarkable. Neuro: Awake, alert, oriented. Cranial nerves II through XII unremarkable. Cerebellum unremarkable. Motor and sensory unremarkable throughout. Exam nonfocal. Notes: Patient appears dehydrated. He reports he has not being taking his insulin x 1 week and has not been taking all of his blood pressure medications, because he states the easely of these have went up and he has not been able to afford them. Has not been eating or drinking much due to n/v/d. Has not taken any of his medications yet today. Today's lab work shows elevated BUN/Creat and potassium. Patient does not receive dialysis again until Wednesday. I spoke with Dr. Lemus/ Poli, specialist art sales consultant who is agreeable to keeping this patient for further observation and management. Patient states he would prefer being here at our facility. He is agreeable to staying for further care. Patient states he feels restless, states he usually takes Ativan for these symptoms. Will give him Lisinopril (home medication) and Ativan. Hospitalist is coming down to see him. Will place on telemetry. While preparing the patient for admission he states he has been having some RUQ pain, lipase was added and is elevated. Hospitalist was informed and will review if patient can stay here. Poli would like this patient transferred due to [facility] needing more than 24 hours of care and dialysis. Dr Bowden, [facility] ED physician, is agreeable to accepting this patient. Would like IV fluids running at 150mls/hour. EMS will transfer patient. Diagnostics: CBC, CMP, Lactic, UA, Influenza, Lipase Therapeutics: Normal Saline, Zofran, Insulin, Lisinopril, Ativan Impression: Gastroenteritis Hyperkalemia Dehydration Chronic renal failure Medication noncompliance due to cost of medication Pancreatitis Plan: Transfer to [facility] per EMS Definitive disposition and diagnosis as appropriate pending reevaluation and review of above. Duration: Week(s): Head Pain Score (Numeric/FACES): 4 - Related Data Allergies Allergy/AdvReac Type Severity Reaction Status Date / Time No Known Allergies Allergy Verified 12/28/18 18:30 Home Meds: Home Meds Calcium Acetate [PhosLo] 1,334 mg PO TIDAC 11/09/16 [History] FLUoxetine [PROzac] 10 mg PO BEDTIME 11/09/16 [History] Gabapentin [Neurontin] 200 mg PO BID 11/09/16 [History] LORazepam 0.5 mg PO DAILY PRN 11/09/16 [History] Metoprolol Tartrate [Lopressor] 50 mg PO BID 11/09/16 [History] Zolpidem [Ambien] 10 mg PO BEDTIME 11/09/16 [History] amLODIPine [Norvasc] 20 mg PO DAILY 11/09/16 [History] cloNIDine [Catapres] 0.2 mg PO BID PRN 11/09/16 [History] Aspirin [Halfprin] 81 mg PO BRK 01/08/17 [History] Insulin Aspart [Novolog] 4 unit SQ TIDAC 01/08/17 [History] atorvaSTATin Calcium [Atorvastatin Calcium] 20 mg PO BEDTIME 01/08/17 [History] Insulin Degludec [Tresiba] 40 unit SQ DAILY 09/14/18 [History] Lisinopril 10 mg PO DAILY 09/14/18 [History] PARoxetine [Paxil] 20 mg PO DAILY 09/14/18 [History] rOPINIRole [Requip] 2 mg PO DAILY 09/14/18 [History] Past Medical History - Past Health History Medical/Surgical History: Denies Medical/Surgical History HEENT History: Reports: Other (See Below) Other HEENT History: wears glasses Cardiovascular History: Reports: Hypertension, Other (See Below) Other Cardiovascular History: transferred to [place] last Wednesday to cardiac issues. ACS Respiratory History: Reports: Intubation, Previous Gastrointestinal History: Reports: None Genitourinary History: Reports: Acute Renal Failure, Chronic Renal Insuffiency Other Genitourinary History: pt on dialysis Musculoskeletal History: Reports: Fracture Other Musculoskeletal History: hx of fx right foot Neurological History: Reports: None Psychiatric History: Reports: Anxiety, Depression Endocrine/Metabolic History: Reports: Diabetes, Type I, Obesity/BMI 30+ Hematologic History: Reports: None Immunologic History: Reports: None Oncologic (Cancer) History: Reports: None Dermatologic History: Reports: None - Infectious Disease History Infectious Disease History: Reports: C-Difficile - Past Surgical History HEENT Surgical History: Reports: None Cardiovascular Surgical History: Reports: Other (See Below) Other Cardiovascular Surgeries/Procedures: Insertion of dialysis cathete and AV Shunt Respiratory Surgical History: Reports: Other (See Below) GI Surgical History: Reports: Appendectomy Male Surgical History: Reports: None Endocrine Surgical History: Reports: None Neurological Surgical History: Reports: None Musculoskeletal Surgical History: Reports: Shoulder Surgery Other Musculoskeletal Surgeries/Procedures:: right RTCR Oncologic Surgical History: Reports: None Social & Family History - Family History Family Medical History: Noncontributory - Tobacco Use Smoking Status *Q: Never Smoker - Caffeine Use Caffeine Use: Reports: None Caffeine Use Comment: 1cup/day ED ROS GENERAL - Review of Systems Review Of Systems: Comprehensive ROS is negative, except as noted in HPI. ED EXAM, GENERAL - Physical Exam Exam: See Below (See dictation) Course - Vital Signs Last Recorded V/S: Last Vital Signs Temp 96.1 F 03/20/19 13:55 Pulse 64 03/20/19 16:32 Resp 18 03/20/19 16:32 BP 192/96 H 03/20/19 16:32 Pulse Ox 99 03/20/19 16:32 - Orders/Labs/Meds Orders: Active Orders 24 hr Category Date Time Status Blood Glucose Check, Bedside [RC] ONETIME Care 03/20/19 14:06 Active UA RFX VIVI AND CULT IF INDIC [URIN] Stat Lab 03/20/19 14:00 Ordered Labs: Laboratory Tests 03/20/19 03/20/19 03/20/19 Range/Units 14:15 14:20 14:20 WBC 9.68 (4.0-11.0) K/uL RBC 5.00 (4.50-5.90) M/uL Hgb 15.3 (13.0-17.0) g/dL Hct 44.6 (38.0-50.0) % MCV 89.2 (80.0-98.0) fL MCH 30.6 (27.0-32.0) pg MCHC 34.3 (31.0-37.0) g/dL RDW Std Deviation 47.2 (28.0-62.0) fl RDW Coeff of Robert 15 (11.0-15.0) % Plt Count 202 (150-400) K/uL MPV 11.50 (7.40-12.00) fL Neut % (Auto) 79.6 (48.0-80.0) % Lymph % (Auto) 8.4 L (16.0-40.0) % [place] % (Auto) 8.6 (0.0-15.0) % Eos % (Auto) 2.9 (0.0-7.0) % Baso % (Auto) 0.5 (0.0-1.5) % Neut # (Auto) 7.7 H (1.4-5.7) K/uL Lymph # (Auto) 0.8 (0.6-2.4) K/uL [place] # (Auto) 0.8 (0.0-0.8) K/uL Eos # (Auto) 0.3 (0.0-0.7) K/uL Baso # (Auto) 0.1 (0.0-0.1) K/uL Nucleated RBC % 0.0 /100WBC Nucleated RBCs # 0 K/uL Lactate (0.20-2.00) mmol/L Sodium 138 (136-148) mmol/L Potassium 5.6 H (3.5-5.1) mmol/L Chloride 96 L (98-107) mmol/L Carbon Dioxide 32.0 (21.0-32.0) mmol/L BUN 32 H (7.0-18.0) mg/dL Creatinine 5.9 H (0.8-1.3) mg/dL Est Cr Clr Drug Dosing 11.51 mL/min Estimated GFR (MDRD) 9.6 ml/min Glucose 295 H (74-106) mg/dL POC Glucose 283 H (60-110) mg/dL Calcium 9.4 (8.5-10.1) mg/dL Total Bilirubin 0.7 (0.2-1.0) mg/dL AST 15 (15-37) IU/L ALT 20 (14-63) IU/L Alkaline Phosphatase 113 (46-116) U/L Total Protein 8.2 (6.4-8.2) g/dL Albumin 4.2 (3.4-5.0) g/dL Globulin 4.0 (2.6-4.0) g/dL Albumin/Globulin Ratio 1.0 (0.9-1.6) Lipase (73-393) U/L 03/20/19 03/20/19 03/20/19 Range/Units 14:20 14:20 15:18 WBC (4.0-11.0) K/uL RBC (4.50-5.90) M/uL Hgb (13.0-17.0) g/dL Hct (38.0-50.0) % MCV (80.0-98.0) fL MCH (27.0-32.0) pg MCHC (31.0-37.0) g/dL RDW Std Deviation (28.0-62.0) fl RDW Coeff of Robert (11.0-15.0) % Plt Count (150-400) K/uL MPV (7.40-12.00) fL Neut % (Auto) (48.0-80.0) % Lymph % (Auto) (16.0-40.0) % [place] % (Auto) (0.0-15.0) % Eos % (Auto) (0.0-7.0) % Baso % (Auto) (0.0-1.5) % Neut # (Auto) (1.4-5.7) K/uL Lymph # (Auto) (0.6-2.4) K/uL [place] # (Auto) (0.0-0.8) K/uL Eos # (Auto) (0.0-0.7) K/uL Baso # (Auto) (0.0-0.1) K/uL Nucleated RBC % /100WBC Nucleated RBCs # K/uL Lactate 1.5 (0.20-2.00) mmol/L Sodium (136-148) mmol/L Potassium (3.5-5.1) mmol/L Chloride (98-107) mmol/L Carbon Dioxide (21.0-32.0) mmol/L BUN (7.0-18.0) mg/dL Creatinine (0.8-1.3) mg/dL Est Cr Clr Drug Dosing mL/min Estimated GFR (MDRD) ml/min Glucose (74-106) mg/dL POC Glucose 211 H (60-110) mg/dL Calcium (8.5-10.1) mg/dL Total Bilirubin (0.2-1.0) mg/dL AST (15-37) IU/L ALT (14-63) IU/L Alkaline Phosphatase (46-116) U/L Total Protein (6.4-8.2) g/dL Albumin (3.4-5.0) g/dL Globulin (2.6-4.0) g/dL Albumin/Globulin Ratio (0.9-1.6) Lipase 978 H (73-393) U/L Meds: Medications Discontinued Medications Generic Name Dose Route Start Last Admin Trade Name Freq PRN Reason Stop Dose Admin Sodium Chloride 1,000 mls @ 999 mls/hr 03/20/19 14:00 03/20/19 14:22 Normal Saline IV 03/20/19 15:00 999 mls/hr STAT ONE Administration Insulin Human Regular 8 unit 03/20/19 14:20 03/20/19 14:26 Novolin R SUBCUT 03/20/19 14:21 8 units NOW STA Administration Protocol Lisinopril 10 mg 03/20/19 15:38 03/20/19 16:01 Prinivil PO 03/20/19 15:39 10 mg ONETIME ONE Administration Lorazepam 1 mg 03/20/19 15:38 03/20/19 16:02 Ativan IVPUSH 03/20/19 15:39 1 mg ONETIME ONE Administration Ondansetron HCl 4 mg 03/20/19 14:05 03/20/19 14:18 Zofran IVPUSH 03/20/19 14:06 4 mg ONETIME ONE Administration Departure - Departure Time of Disposition: 15:27 Disposition: DC/Tfer to [facility] 02 Clinical Impression: Noncompliance with medication regimen, Gastroenteritis, Hyperkalemia, Dehydration Chronic renal disease Qualifiers: Chronic kidney disease stage: on chronic dialysis Qualified Code(s): N18.6 - End stage renal disease Pancreatitis Qualifiers: Chronicity: acute Pancreatitis type: unspecified pancreatitis type Acute pancreatitis complication: unspecified Qualified Code(s): K85.90 - Acute pancreatitis without necrosis or infection, unspecified - Discharge Information Sepsis Event Note - Evaluation Sepsis Screening Result: No Definite Risk - Focused Exam Vital Signs: Vital Signs Temp Pulse Resp BP Pulse Ox 03/20/19 13:55 96.1 F 66 18 212/91 H 98 Date Exam was Performed: 03/20/19 Time Exam was Performed: 16:35 - My Orders Last 24 Hours: My Active Orders 03/20/19 14:00 UA RFX VIVI AND CULT IF INDIC [URIN] Stat 03/20/19 14:06 Blood Glucose Check, Bedside [RC] ONETIME - Assessment/Plan Last 24 Hours: My Active Orders 03/20/19 14:00 UA RFX VIVI AND CULT IF INDIC [URIN] Stat 03/20/19 14:06 Blood Glucose Check, Bedside [RC] ONETIME
[2019-03-20] MEDS ORDERED: Insulin Regular, Human 100 Units/ML 10 ML Vial SUBCUT STA (14:20)
[2019-03-20 14:59] LABS: POTASSIUM,K 5.6 mmol/L (3.5-5.1)
--- NOTE | 2019-03-20 15:11 | CR ---
Chest: Portable view of the chest was obtained. Comparison: Prior chest x-ray of 12/28/18. Heart size and mediastinum are within normal limits for portable technique. Lungs are clear. Bony structures are grossly intact. Impression: 1. Nothing acute is appreciated on portable chest x-ray. Diagnostic code #1 This report was dictated in [place] Standard Time
[2019-03-20] MEDS ORDERED: LORazepam 2 MG/ML SDV IVPUSH ONE (15:38)
[2019-03-20] MEDS ORDERED: Lisinopril 10 MG Tab PO ONE (15:38)
[2019-03-20 16:33] VITALS: BP 192/96; PULSE 64
[2019-03-20] MEDS ORDERED: Morphine 2 MG/ML Syringe IVPUSH ONE (17:00)
== END 2019-03-20 17:41 ==
LOC: MW.ED 13:45 → MW.MS 15:24 → UNDOADMOB 15:24 → MW.ED 17:41
DX: K21.9 Gastro-esophageal reflux disease without esophagitis (principal); E87.5 Hyperkalemia; E86.0 Dehydration; E10.22 Type 1 diabetes mellitus with diabetic chronic kidney disease; I12.0 Hypertensive chronic kidney disease with stage 5 chronic kidney disease or end stage renal disease; N18.6 End stage renal disease; K85.90 Acute pancreatitis without necrosis or infection, unspecified; F41.9 Anxiety disorder, unspecified; F32.9 Major depressive disorder, single episode, unspecified; Z91.14 Patient's other noncompliance with medication regimen; Z79.4 Long term (current) use of insulin; Z79.82 Long term (current) use of aspirin; Z79.899 Other long term (current) drug therapy
CPT/HCPCS: 36415; 71045; 80053; 82962; 83605; 83690; 85025; 87804; 93005; 96361; 96374; 96375; 99285; A9270; J2060; J2270; J2405; J7030; J1815-GY

== ENCOUNTER 2019-03-27 06:31 | Emergency (ER) | payer MEDICAID, MEDICARE ==
[2019-03-27] MEDS ORDERED: Acetaminophen 500 MG Tab PO ONE (06:51)
[2019-03-27 07:28] LABS: BLOOD UREA NITROGEN,BUN 60 mg/dL (7.0-18.0); CARBON DIOXIDE,CO2 25.7 mmol/L (21.0-32.0); CHLORIDE,CL 102 mmol/L (98-107); LIPASE 200 U/L (73-393); POTASSIUM,K 6.5 mmol/L (3.5-5.1); SODIUM,NA 141 mmol/L (136-148)
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
[2019-03-27 07:45] LABS: GLUCOSE RANDOM 155 mg/dL (74-106)
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
--- NOTE | 2019-03-27 08:33 | CR ---
Chest: 2 views of the chest were obtained. Comparison: Prior chest x-ray of 12/28/18. Mild increased density is noted within the left lung base. Increased lung markings are seen which is accentuated from portable technique but difficult to exclude bronchitis. Heart size and mediastinum are normal. Bony structures are unremarkable. Impression: 1. Increased density within the left lung base. Differential includes atelectasis as well as early pneumonia. 2. Increased lung markings which are accentuated from AP technique but difficult to exclude bronchitis. Diagnostic code #3 This report was dictated in [place] Standard Time
[2019-03-27] MEDS ORDERED: Lisinopril 10 MG Tab PO ONE (08:38)
--- NOTE | 2019-03-27 08:39 | CT ---
INDICATION: Right flank pain for 1 week. TECHNIQUE: CT of the abdomen and pelvis without intravenous contrast. Coronal and sagittal reconstructions. COMPARISON: None. FINDINGS: The unenhanced liver, gallbladder, spleen, pancreas, kidneys, and adrenal glands are normal in appearance. Splenule. No hydronephrosis or ureteral dilation. No urinary calculi. Diffuse bladder wall thickening may partially be due to underdistention. There is also perivesical fat stranding which can be seen with infectious or inflammatory cystitis. The prostate is unremarkable. No bowel dilation. The appendix is not identified. No intraperitoneal free air or fluid. Aortoiliac vascular calcifications. No lymphadenopathy. Mild degenerative changes of the spine. Small bilateral pleural effusions. Interlobular septal thickening in the lung bases likely due to edema. IMPRESSION: 1. Diffuse bladder wall thickening and perivesical fat stranding can be seen with infectious or inflammatory cystitis. No urinary calculi. 2. Small bilateral pleural effusions. 3. Interlobular septal thickening in the lung bases likely due to edema. Please note that all CT scans at this facility use dose modulation, iterative reconstruction, and/or weight-based dosing when appropriate to reduce radiation dose to as low as reasonably achievable. Dictated by Carole Domingo MD @ Mar 27 2019 8:29AM Signed by Dr. Carole Domingo @ Mar 27 2019 8:37AM
[2019-03-27] MEDS ORDERED: Metoprolol Tartrate 50 MG Tab PO ONE (08:56)
[2019-03-27] MEDS ORDERED: Piperacillin/Tazobactam 3.375 GM in Sodium Chloride 0.9% 50 ML IV ONE (09:18)
[2019-03-27 09:51] VITALS: BP 193/85; PULSE 92
== END 2019-03-27 10:00 ==
LOC: MW.ED 06:31
DX: I13.10 Hypertensive heart and chronic kidney disease without heart failure, with stage 1 through stage 4 chronic kidney disease, or unspecified chronic kidney disease (principal); N18.6 End stage renal disease; E10.22 Type 1 diabetes mellitus with diabetic chronic kidney disease; J18.9 Pneumonia, unspecified organism; R10.9 Unspecified abdominal pain; R11.10 Vomiting, unspecified; F41.9 Anxiety disorder, unspecified; F32.9 Major depressive disorder, single episode, unspecified; E66.9 Obesity, unspecified; Z99.2 Dependence on renal dialysis; Z79.82 Long term (current) use of aspirin; Z79.899 Other long term (current) drug therapy
CPT/HCPCS: 36415; 70450; 71046; 72125; 74176; 80053; 83605; 83690; 84484; 85025; 87040; 93005; 96365; 99285; A9270; J2543; J7050; 99284

== ENCOUNTER 2019-08-13 20:27 | Emergency (ER) | payer MEDICARE ==
[2019-08-13] MEDS ORDERED: Diphtheria/Tetanus Toxoids,Adult (Td) 0.5 ML Syringe IM ONE (20:48)
[2019-08-13] MEDS ORDERED: Lidocaine 1% 10 ML MDV INJECT ONE (20:49)
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
[2019-08-13 20:54] VITALS: BP 139/94; PULSE 70
[2019-08-13] MEDS ORDERED: Diphtheria,Pertussis(Acell),Tetanus Vaccine 0.5 ML Syringe IM ONE (21:05)
== END 2019-08-13 21:31 | disposition home or self-care (01) ==
LOC: MW.ED 20:27
DX: S61.012A Laceration without foreign body of left thumb without damage to nail, initial encounter (principal); I12.9 Hypertensive chronic kidney disease with stage 1 through stage 4 chronic kidney disease, or unspecified chronic kidney disease; F41.9 Anxiety disorder, unspecified; F32.9 Major depressive disorder, single episode, unspecified; E66.9 Obesity, unspecified; Z68.31 Body mass index [BMI] 31.0-31.9, adult; E10.22 Type 1 diabetes mellitus with diabetic chronic kidney disease; N18.9 Chronic kidney disease, unspecified; Z79.899 Other long term (current) drug therapy; Z79.82 Long term (current) use of aspirin; Z79.4 Long term (current) use of insulin; Z23 Encounter for immunization; W18.30XA Fall on same level, unspecified, initial encounter
CPT/HCPCS: 12001; 90471; 90715; 99282; J2001

== ENCOUNTER 2019-08-18 12:18 | Emergency (ER) | payer MEDICARE | END 2019-08-18 12:30 | disposition left against medical advice (07) | LOC: MW.ED 12:18 | DX: Z53.21 Procedure and treatment not carried out due to patient leaving prior to being seen by health care provider (principal) ==

== ENCOUNTER 2019-11-06 16:06 | Emergency (ER) | payer MEDICARE, OTHER ==
[2019-11-06] MEDS ORDERED: Sodium Chloride 0.9% 2.5 ML Syringe FLUSH PRN ×2 (16:30)
[2019-11-06] MEDS ORDERED: Sodium Chloride 0.9% 10 ML Syringe FLUSH PRN (16:30)
--- NOTE | 2019-11-06 16:43 | EDM.PDOC ---
ED HPI GENERAL MEDICAL PROBLEM - General Chief Complaint: General Stated Complaint: fluid problems Time Seen by Provider: 11/06/19 16:16 - History of Present Illness INITIAL COMMENTS - FREE TEXT/NARRATIVE: History of present illness: [] Patient presents with increased shortness of breath feeling of generalized malaise and swelling all over his body. He is a dialysis patient who states he dialyzed yesterday but does not feel like enough fluid was removed. He denies any fever chills no cough but he is having some shortness of breath and generalized swelling no pain nothing seems to make it better or worse Review of systems: As per history of present illness and below otherwise all systems reviewed and negative. Past medical history: As per history of present illness and as reviewed below otherwise noncontributory. Surgical history: As per history of present illness and as reviewed below otherwise noncontributory. Social history: No reported history of drug or alcohol abuse. Family history: As per history of present illness and as reviewed below otherwise noncontributory. Physical exam: HEENT: Atraumatic, normocephalic, pupils reactive, negative for conjunctival pallor or scleral icterus, mucous membranes moist, throat clear, neck supple, nontender, trachea midline. Lungs: Rales, breath sounds equal bilaterally, chest nontender. Heart: S1S2, regular, negative for clicks, rubs, or JVD. Abdomen: Soft, nondistended, nontender. Negative for masses or hepatosplenomegaly. Negative for costovertebral tenderness. Pelvis: Stable nontender. Genitourinary: Deferred. Rectal: Deferred. Extremities: Atraumatic, negative for cords or calf pain. Neurovascular unremarkable. 2+ extremity edema is present Neuro: Awake, alert, oriented. Cranial nerves II through XII unremarkable. Cerebellum unremarkable. Motor and sensory unremarkable throughout. Exam nonfocal. Diagnostics: [] Therapeutics: [] Impression: Shortness of breath and edema [] Plan: Patient will receive lab studies chest x-ray and be reassessed [] Definitive disposition and diagnosis as appropriate pending reevaluation and review of above. stomach Pain Score (Numeric/FACES): 8 - Related Data Allergies Allergy/AdvReac Type Severity Reaction Status Date / Time No Known Allergies Allergy Verified 12/28/18 18:30 Home Meds: Home Meds FLUoxetine [PROzac] 10 mg PO BEDTIME 11/09/16 [History] Gabapentin [Neurontin] 200 mg PO BID 11/09/16 [History] LORazepam 0.5 mg PO DAILY PRN 11/09/16 [History] Metoprolol Tartrate [Lopressor] 50 mg PO BID 11/09/16 [History] Zolpidem [Ambien] 10 mg PO BEDTIME 11/09/16 [History] amLODIPine [Norvasc] 20 mg PO DAILY 11/09/16 [History] cloNIDine [Catapres] 0.2 mg PO BID PRN 11/09/16 [History] Aspirin [Halfprin] 81 mg PO BRK 01/08/17 [History] Insulin Aspart [Novolog] 4 unit SQ TIDAC 01/08/17 [History] atorvaSTATin Calcium [Atorvastatin Calcium] 20 mg PO BEDTIME 01/08/17 [History] Insulin Degludec [Tresiba] 40 unit SQ DAILY 09/14/18 [History] Lisinopril 10 mg PO DAILY 09/14/18 [History] PARoxetine [Paxil] 20 mg PO DAILY 09/14/18 [History] rOPINIRole [Requip] 2 mg PO DAILY 09/14/18 [History] Past Medical History - Past Health History Medical/Surgical History: Denies Medical/Surgical History HEENT History: Reports: Other (See Below) Other HEENT History: wears glasses Cardiovascular History: Reports: Heart Failure, Hypertension, Other (See Below) Other Cardiovascular History: transferred to [place] previously to cardiac issues. ACS Respiratory History: Reports: Intubation, Previous Gastrointestinal History: Reports: None Genitourinary History: Reports: Acute Renal Failure, Chronic Renal Insuffiency Other Genitourinary History: pt on dialysis Musculoskeletal History: Reports: Fracture Other Musculoskeletal History: hx of fx right foot Neurological History: Reports: None Psychiatric History: Reports: Anxiety, Depression Endocrine/Metabolic History: Reports: Diabetes, Type I, Obesity/BMI 30+ Hematologic History: Reports: None Immunologic History: Reports: None Oncologic (Cancer) History: Reports: None Dermatologic History: Reports: None - Infectious Disease History Infectious Disease History: Reports: Chicken Pox - Past Surgical History HEENT Surgical History: Reports: None Cardiovascular Surgical History: Reports: Other (See Below) Other Cardiovascular Surgeries/Procedures: Insertion of dialysis cathete and AV Shunt Respiratory Surgical History: Reports: Other (See Below) GI Surgical History: Reports: Appendectomy Male Surgical History: Reports: None Endocrine Surgical History: Reports: None Neurological Surgical History: Reports: None Musculoskeletal Surgical History: Reports: Shoulder Surgery Other Musculoskeletal Surgeries/Procedures:: right RTCR Oncologic Surgical History: Reports: None Social & Family History - Family History Family Medical History: Noncontributory - Caffeine Use Caffeine Use: Reports: None Caffeine Use Comment: 1cup/day - Recreational Drug Use Recreational Drug Use: No ED ROS GENERAL - Review of Systems Review Of Systems: See Below ED EXAM, GENERAL - Physical Exam Exam: See Below EKG INTERPRETATION EKG Interpretation Comments: EKG is normal sinus rhythm rate of 78 bpm left axis there is some peaked T waves diffusely across all leads. Read and interpreted by me. Course - Vital Signs Text/Narrative:: I discussed the case with Dr. Gtz at [facility] he will need to be transferred there for dialysis all other [facility] capable of dialysis are on divert at this time Critical care 45 minutes for renal failure fluid overload and hyperkalemia. This include initial assessment initiation of medications for hyperkalemia interpretation of EKG interpretation of chest x-ray long consultation with consultants on the phone. The assessment of patient and arrangement of transport for transfer. Does not include separately billable procedures. Last Recorded V/S: Last Vital Signs Temp 36.7 C 11/06/19 16:24 Pulse 78 11/06/19 18:12 Resp 16 11/06/19 18:12 BP 180/78 H 11/06/19 18:12 Pulse Ox 94 L 11/06/19 18:12 - Orders/Labs/Meds Orders: Active Orders 24 hr Category Date Time Status EKG Documentation Completion [RC] STAT Care 11/06/19 16:30 Active CORONAVIRUS COVID-19 PCR [facility] Stat Lab 11/06/19 16:43 Received CORONAVIRUS COVID-19 PCR [facility] Stat Lab 11/06/19 16:43 Received Sodium Chloride 0.9% [Saline Flush] Med 11/06/19 16:30 Active 10 ml FLUSH ASDIRECTED PRN Sodium Chloride 0.9% [Saline Flush] Med 11/06/19 16:30 Active 2.5 ml FLUSH ASDIRECTED PRN Sodium Chloride 0.9% [Saline Flush] Med 11/06/19 16:30 Active 2.5 ml FLUSH ASDIRECTED PRN Saline Lock Insert [OM.PC] Stat Oth 11/06/19 16:30 Ordered Medication Orders Sodium Chloride (Saline Flush) 10 ml FLUSH ASDIRECTED PRN PRN Reason: Keep Vein Open Last Admin: 11/06/19 17:49 Dose: 10 ml Documented by: KAIN Sodium Chloride (Saline Flush) 2.5 ml FLUSH ASDIRECTED PRN PRN Reason: Keep Vein Open Last Admin: 11/06/19 17:49 Dose: 2.5 ml Documented by: KAIN Sodium Chloride (Saline Flush) 2.5 ml FLUSH ASDIRECTED PRN PRN Reason: Keep Vein Open Last Admin: 11/06/19 18:14 Dose: 2.5 ml Documented by: KAIN Labs: Laboratory Tests 11/06/19 11/06/19 11/06/19 Range/Units 16:42 16:42 16:42 WBC 9.39 (4.0-11.0) K/uL RBC 3.41 L (4.50-5.90) M/uL Hgb 10.1 L (13.0-17.0) g/dL Hct 30.4 L (38.0-50.0) % MCV 89.1 (80.0-98.0) fL MCH 29.6 (27.0-32.0) pg MCHC 33.2 (31.0-37.0) g/dL RDW Std Deviation 45.7 (28.0-62.0) fl RDW Coeff of Robert 14 (11.0-15.0) % Plt Count 200 (150-400) K/uL MPV 11.50 (7.40-12.00) fL Neut % (Auto) 75.5 (48.0-80.0) % Lymph % (Auto) 10.9 L (16.0-40.0) % Moca % (Auto) 10.6 (0.0-15.0) % Eos % (Auto) 2.7 (0.0-7.0) % Baso % (Auto) 0.3 (0.0-1.5) % Neut # (Auto) 7.1 H (1.4-5.7) K/uL Lymph # (Auto) 1.0 (0.6-2.4) K/uL Moca # (Auto) 1.0 H (0.0-0.8) K/uL Eos # (Auto) 0.3 (0.0-0.7) K/uL Baso # (Auto) 0.0 (0.0-0.1) K/uL Nucleated RBC % 0.0 /100WBC Nucleated RBCs # 0 K/uL Sodium 140 (136-148) mmol/L Potassium 6.7 H (3.5-5.1) mmol/L Chloride 96 L (98-107) mmol/L Carbon Dioxide 23.2 (21.0-32.0) mmol/L BUN 109 H (7.0-18.0) mg/dL Creatinine 19.9 H (0.8-1.3) mg/dL Est Cr Clr Drug Dosing 3.37 mL/min Estimated GFR (MDRD) 2.4 ml/min Glucose 176 H (74-106) mg/dL POC Glucose (60-110) mg/dL Calcium 8.8 (8.5-10.1) mg/dL Total Bilirubin 0.4 (0.2-1.0) mg/dL AST 11 L (15-37) IU/L ALT 16 (14-63) IU/L Alkaline Phosphatase 61 (46-116) U/L Troponin I 0.061 H* (0.000-0.056) ng/mL B-Natriuretic Peptide 4478 H (<100) PG/ML Total Protein 6.8 (6.4-8.2) g/dL Albumin 3.3 L (3.4-5.0) g/dL Globulin 3.5 (2.6-4.0) g/dL Albumin/Globulin Ratio 0.9 (0.9-1.6) SARS CoV-2 RNA Rapid SHASTA (NEGATIVE) 11/06/19 11/06/19 Range/Units 16:43 18:05 WBC (4.0-11.0) K/uL RBC (4.50-5.90) M/uL Hgb (13.0-17.0) g/dL Hct (38.0-50.0) % MCV (80.0-98.0) fL MCH (27.0-32.0) pg MCHC (31.0-37.0) g/dL RDW Std Deviation (28.0-62.0) fl RDW Coeff of Robert (11.0-15.0) % Plt Count (150-400) K/uL MPV (7.40-12.00) fL Neut % (Auto) (48.0-80.0) % Lymph % (Auto) (16.0-40.0) % Moca % (Auto) (0.0-15.0) % Eos % (Auto) (0.0-7.0) % Baso % (Auto) (0.0-1.5) % Neut # (Auto) (1.4-5.7) K/uL Lymph # (Auto) (0.6-2.4) K/uL Moca # (Auto) (0.0-0.8) K/uL Eos # (Auto) (0.0-0.7) K/uL Baso # (Auto) (0.0-0.1) K/uL Nucleated RBC % /100WBC Nucleated RBCs # K/uL Sodium (136-148) mmol/L Potassium (3.5-5.1) mmol/L Chloride (98-107) mmol/L Carbon Dioxide (21.0-32.0) mmol/L BUN (7.0-18.0) mg/dL Creatinine (0.8-1.3) mg/dL Est Cr Clr Drug Dosing mL/min Estimated GFR (MDRD) ml/min Glucose (74-106) mg/dL POC Glucose 144 H (60-110) mg/dL Calcium (8.5-10.1) mg/dL Total Bilirubin (0.2-1.0) mg/dL AST (15-37) IU/L ALT (14-63) IU/L Alkaline Phosphatase (46-116) U/L Troponin I (0.000-0.056) ng/mL B-Natriuretic Peptide (<100) PG/ML Total Protein (6.4-8.2) g/dL Albumin (3.4-5.0) g/dL Globulin (2.6-4.0) g/dL Albumin/Globulin Ratio (0.9-1.6) SARS CoV-2 RNA Rapid SHASTA NEGATIVE (NEGATIVE) Meds: Medications Generic Name Dose Route Start Last Admin Trade Name Freq PRN Reason Stop Dose Admin Sodium Chloride 10 ml 11/06/19 16:30 11/06/19 17:49 Saline Flush FLUSH 10 ml ASDIRECTED PRN Administration Keep Vein Open Sodium Chloride 2.5 ml 11/06/19 16:30 11/06/19 17:49 Saline Flush FLUSH 2.5 ml ASDIRECTED PRN Administration Keep Vein Open Sodium Chloride 2.5 ml 11/06/19 16:30 11/06/19 18:14 Saline Flush FLUSH 2.5 ml ASDIRECTED PRN Administration Keep Vein Open Discontinued Medications Generic Name Dose Route Start Last Admin Trade Name Freq PRN Reason Stop Dose Admin Aspirin 324 mg 11/06/19 18:06 11/06/19 18:11 Aspirin PO 11/06/19 18:07 324 mg ONETIME ONE Administration Calcium Gluconate 1 gm 11/06/19 17:47 11/06/19 17:57 Calcium Gluconate IVPUSH 11/06/19 17:48 1 gm ONETIME ONE Administration Dextrose/Water 50 ml 11/06/19 17:49 11/06/19 18:02 Dextrose 50% In Water IVPUSH 11/06/19 17:50 50 ml ONETIME ONE Administration Insulin Human Regular 10 unit 11/06/19 17:47 11/06/19 18:03 Novolin R IVPUSH 11/06/19 17:48 10 unit ONETIME ONE Administration Protocol Sodium Bicarbonate 50 meq 11/06/19 17:48 11/06/19 18:02 Sodium Bicarbonate 8.4% IVPUSH 11/06/19 17:49 50 meq ONETIME ONE Administration Departure - Departure Time of Disposition: 18:23 Disposition: DC/Tfer to Acute Hospital 02 Condition: Poor Clinical Impression: Hyperkalemia, Acute renal failure on dialysis Chronic renal disease Qualifiers: Chronic kidney disease stage: on chronic dialysis Qualified Code(s): N18.6 - End stage renal disease - Discharge Information *PRESCRIPTION DRUG MONITORING PROGRAM REVIEWED*: Not Applicable *COPY OF PRESCRIPTION DRUG MONITORING REPORT IN PATIENT MARY: Not Applicable Referrals: Reyes Castanon MD [Primary Care Provider] - Forms: ED Department Discharge Sepsis Event Note (ED) - Evaluation Sepsis Screening Result: No Definite Risk - Focused Exam Vital Signs: Vital Signs Temp Pulse Resp BP Pulse Ox 11/06/19 18:12 78 16 180/78 H 94 L 11/06/19 16:24 36.7 C 79 20 199/78 H 82 L - My Orders Last 24 Hours: My Active Orders 11/06/19 16:30 EKG Documentation Completion [RC] STAT Sodium Chloride 0.9% [Saline Flush] 10 ml FLUSH ASDIRECTED PRN Sodium Chloride 0.9% [Saline Flush] 2.5 ml FLUSH ASDIRECTED PRN Sodium Chloride 0.9% [Saline Flush] 2.5 ml FLUSH ASDIRECTED PRN Saline Lock Insert [OM.PC] Stat 11/06/19 16:43 CORONAVIRUS COVID-19 PCR [facility] Stat CORONAVIRUS COVID-19 PCR [facility] Stat - Assessment/Plan Last 24 Hours: My Active Orders 11/06/19 16:30 EKG Documentation Completion [RC] STAT Sodium Chloride 0.9% [Saline Flush] 10 ml FLUSH ASDIRECTED PRN Sodium Chloride 0.9% [Saline Flush] 2.5 ml FLUSH ASDIRECTED PRN Sodium Chloride 0.9% [Saline Flush] 2.5 ml FLUSH ASDIRECTED PRN Saline Lock Insert [OM.PC] Stat 11/06/19 16:43 CORONAVIRUS COVID-19 PCR [facility] Stat CORONAVIRUS COVID-19 PCR [facility] Stat
[2019-11-06 17:30] LABS: CARBON DIOXIDE,CO2 23.2 mmol/L (21.0-32.0); POTASSIUM,K 6.7 mmol/L (3.5-5.1)
[2019-11-06] MEDS ORDERED: Insulin Regular, Human 100 Units/ML 10 ML Vial IVPUSH ONE (17:47)
[2019-11-06] MEDS ORDERED: Calcium Gluconate 10% 1 GM/10 ML SDV IVPUSH ONE (17:47)
[2019-11-06] MEDS ORDERED: Sodium Bicarbonate 8.4% 50 MEQ/50 ML Syringe IVPUSH ONE (17:48)
[2019-11-06] MEDS ORDERED: 50% Dextrose in Water 50 ML Syringe IVPUSH ONE (17:49)
--- NOTE | 2019-11-06 18:00 | CR ---
Chest: Frontal view of the chest was obtained. Comparison: Prior chest x-ray of 03/27/19. Findings: Heart is mildly enlarged. Lung markings are increased. Lungs show no alveolar densities. Bony structures are grossly intact. Impression: 1. Mild cardiomegaly. 2. Increased lung markings some of which appear chronic but difficult to exclude mild superimposed pulmonary vascular congestion. Diagnostic code #3 This report was dictated in MDT
[2019-11-06] MEDS ORDERED: Aspirin 81 MG Tab.Chew PO ONE (18:06)
[2019-11-06 18:12] VITALS: BP 180/78; PULSE 78
== END 2019-11-06 19:15 ==
LOC: MW.ED 16:06
DX: I13.2 Hypertensive heart and chronic kidney disease with heart failure and with stage 5 chronic kidney disease, or end stage renal disease (principal); E10.22 Type 1 diabetes mellitus with diabetic chronic kidney disease; I50.9 Heart failure, unspecified; N18.6 End stage renal disease; N17.9 Acute kidney failure, unspecified; E87.5 Hyperkalemia; Z99.2 Dependence on renal dialysis; F41.9 Anxiety disorder, unspecified; F32.9 Major depressive disorder, single episode, unspecified; Z90.49 Acquired absence of other specified parts of digestive tract; Z79.4 Long term (current) use of insulin; Z79.899 Other long term (current) drug therapy
CPT/HCPCS: 36415; 71045; 80053; 82962; 83880; 84484; 85025; 93005; 96374; 96375; 99291; A9270; J0610; J1815; U0002

== ENCOUNTER 2019-11-13 08:03 | Emergency (ER) | payer MEDICARE, MEDICAID, OTHER ==
[2019-11-13] MEDS ORDERED: Sodium Chloride 0.9% 10 ML Syringe FLUSH PRN (08:16)
[2019-11-13] MEDS ORDERED: Sodium Chloride 0.9% 2.5 ML Syringe FLUSH PRN (08:16)
--- NOTE | 2019-11-13 08:43 | EDM.PDOC ---
ED HPI GENERAL MEDICAL PROBLEM - General Stated Complaint: HIGH FEVER Time Seen by Provider: 11/13/19 08:11 Source of Information: Reports: Patient History Limitations: Reports: No Limitations - History of Present Illness INITIAL COMMENTS - FREE TEXT/NARRATIVE: 69-year-old male history of ESRD on dialysis Wednesday/Wednesday/Wednesday, CAD presents with fever since wednesday. He has a peritoneal dialysis catheter in his abdomen which has not been used for 1 week because it was "clogged ". He notes abdominal pain for 3 weeks, pain is described as pressure, diffuse, nonradiating, constant, no alleviating or exacerbating factors. states that he has been lethargic. Patient admits to feeling feverish and chills, mild diffuse chest pain. Patient is due for his dialysis today. Patient also notes green discharge around the PD site on Wednesday. ROS: A 10-point review of systems, other than pertinent positives and negatives as stated per HPI, is otherwise negative Past medical history: No additional pertinent history Past Surgical history: No additional pertinent history Social history: No additional pertinent history Family history: No additional pertinent history PHYSICAL EXAM General: AOx4, GCS = 15, moderate distress HEENT: dry mucous membrane Neck: supple, no meningismus, no Kernig or Brudzinski Cardiac: S1S2 tachycardia Respiratory: CTAB, no crackles or rales, no wheezing Abdomen: Soft, diffusely tender with PD catheter in place, tenderness around PD site without drainage. Back: nontender Musculoskeletal: NVI distally, LUE AV fistula with palpable thrill. Neuro: No focal deficits right abd Pain Score (Numeric/FACES): 10 - Related Data Allergies Allergy/AdvReac Type Severity Reaction Status Date / Time No Known Allergies Allergy Verified 11/13/19 08:32 Home Meds: Home Meds FLUoxetine [PROzac] 10 mg PO BEDTIME 11/09/16 [History] Gabapentin [Neurontin] 200 mg PO BID 11/09/16 [History] LORazepam 0.5 mg PO DAILY PRN 11/09/16 [History] Metoprolol Tartrate [Lopressor] 50 mg PO BID 11/09/16 [History] Zolpidem [Ambien] 10 mg PO BEDTIME 11/09/16 [History] amLODIPine [Norvasc] 20 mg PO DAILY 11/09/16 [History] cloNIDine [Catapres] 0.2 mg PO BID PRN 11/09/16 [History] Aspirin [Halfprin] 81 mg PO BRK 01/08/17 [History] Insulin Aspart [Novolog] 4 unit SQ TIDAC 01/08/17 [History] atorvaSTATin Calcium [Atorvastatin Calcium] 20 mg PO BEDTIME 01/08/17 [History] Insulin Degludec [Tresiba] 40 unit SQ DAILY 09/14/18 [History] Lisinopril 10 mg PO DAILY 09/14/18 [History] PARoxetine [Paxil] 20 mg PO DAILY 09/14/18 [History] rOPINIRole [Requip] 2 mg PO DAILY 09/14/18 [History] Past Medical History - Past Health History Medical/Surgical History: Denies Medical/Surgical History HEENT History: Reports: Other (See Below) Other HEENT History: wears glasses Cardiovascular History: Reports: Heart Failure, Hypertension, Other (See Below) Other Cardiovascular History: transferred to [place] previously to cardiac issues. ACS Respiratory History: Reports: Intubation, Previous Gastrointestinal History: Reports: None Genitourinary History: Reports: Acute Renal Failure, Chronic Renal Insuffiency Other Genitourinary History: pt on dialysis Musculoskeletal History: Reports: Fracture Other Musculoskeletal History: hx of fx right foot Neurological History: Reports: None Psychiatric History: Reports: Anxiety, Depression Endocrine/Metabolic History: Reports: Diabetes, Type I, Obesity/BMI 30+ Hematologic History: Reports: None Immunologic History: Reports: None Oncologic (Cancer) History: Reports: None Dermatologic History: Reports: None - Infectious Disease History Infectious Disease History: Reports: Chicken Pox - Past Surgical History HEENT Surgical History: Reports: None Cardiovascular Surgical History: Reports: Other (See Below) Other Cardiovascular Surgeries/Procedures: Insertion of dialysis cathete and AV Shunt Respiratory Surgical History: Reports: Other (See Below) GI Surgical History: Reports: Appendectomy Male Surgical History: Reports: None Endocrine Surgical History: Reports: None Neurological Surgical History: Reports: None Musculoskeletal Surgical History: Reports: Shoulder Surgery Other Musculoskeletal Surgeries/Procedures:: right RTCR Oncologic Surgical History: Reports: None Social & Family History - Family History Family Medical History: Noncontributory - Caffeine Use Caffeine Use: Reports: None Caffeine Use Comment: 1cup/day ED ROS GENERAL - Review of Systems Review Of Systems: See Below (see dictation) ED EXAM, GENERAL - Physical Exam Exam: See Below (see dictation) EKG INTERPRETATION EKG Interpretation Comments: 99 bpm, NSR, normal QRS interval, no STEMI. EKG and rhythm strip interpreted by me at 0841 Course - Vital Signs Last Recorded V/S: Last Vital Signs Temp 99.9 F 11/13/19 11:06 Pulse 91 11/13/19 12:46 Resp 20 11/13/19 12:46 BP 181/91 H 11/13/19 12:46 Pulse Ox 99 11/13/19 12:46 - Orders/Labs/Meds Orders: Active Orders 24 hr Category Date Time Status Cardiac Monitoring [RC] . DIRECTED Care 11/13/19 08:16 Active EKG Documentation Completion [RC] STAT Care 11/13/19 08:17 Active CORONAVIRUS COVID-19 PCR PHL Stat Lab 11/13/19 10:53 Received CULTURE BLOOD [BC] Stat Lab 11/13/19 08:40 Received CULTURE BLOOD [BC] Stat Lab 11/13/19 10:13 Received CULTURE BODY FLUID + SMEAR [RM] Stat Lab 11/13/19 09:40 Results CULTURE URINE [RM] Stat Lab 11/13/19 Ordered PROCALCITONIN [REF] Stat Lab 11/13/19 08:40 Received UA W/VIVI RFLX IF INDICATED [URIN] Stat Lab 11/13/19 Ordered Sodium Chloride 0.9% [Normal Saline] 500 ml Med 11/13/19 10:45 Active IV ONETIME Sodium Chloride 0.9% [Saline Flush] Med 11/13/19 08:16 Active 10 ml FLUSH ASDIRECTED PRN Sodium Chloride 0.9% [Saline Flush] Med 11/13/19 08:16 Active 2.5 ml FLUSH ASDIRECTED PRN Blood Culture x2 Reflex Set [OM.PC] Stat Oth 11/13/19 08:17 Ordered Saline Lock Insert [OM.PC] Stat Oth 11/13/19 08:16 Ordered Medication Orders Sodium Chloride (Normal Saline) 500 mls @ 25 mls/hr IV ONETIME ONE Stop: 11/14/19 06:44 Last Admin: 11/13/19 10:46 Dose: 25 mls/hr Documented by: LYLA Sodium Chloride (Saline Flush) 10 ml FLUSH ASDIRECTED PRN PRN Reason: Keep Vein Open Last Admin: 11/13/19 08:44 Dose: 10 ml Documented by: AMMON Sodium Chloride (Saline Flush) 2.5 ml FLUSH ASDIRECTED PRN PRN Reason: Keep Vein Open Last Admin: 11/13/19 08:44 Dose: 2.5 ml Documented by: [id number] Labs: Laboratory Tests 11/13/19 11/13/19 11/13/19 Range/Units 08:40 08:40 08:40 WBC 18.01 H (4.0-11.0) K/uL RBC 3.66 L (4.50-5.90) M/uL Hgb 10.9 L (13.0-17.0) g/dL Hct 33.3 L (38.0-50.0) % MCV 91.0 (80.0-98.0) fL MCH 29.8 (27.0-32.0) pg MCHC 32.7 (31.0-37.0) g/dL RDW Std Deviation 46.1 (28.0-62.0) fl RDW Coeff of Robert 14 (11.0-15.0) % Plt Count 253 (150-400) K/uL MPV 10.90 (7.40-12.00) fL Neut % (Auto) 83.7 H (48.0-80.0) % Lymph % (Auto) 7.3 L (16.0-40.0) % [place] % (Auto) 6.4 (0.0-15.0) % Eos % (Auto) 2.4 (0.0-7.0) % Baso % (Auto) 0.2 (0.0-1.5) % Neut # (Auto) 15.1 H (1.4-5.7) K/uL Lymph # (Auto) 1.3 (0.6-2.4) K/uL [place] # (Auto) 1.2 H (0.0-0.8) K/uL Eos # (Auto) 0.4 (0.0-0.7) K/uL Baso # (Auto) 0.0 (0.0-0.1) K/uL Nucleated RBC % 0.0 /100WBC Nucleated RBCs # 0 K/uL ESR (0-19) mm/hr INR 1.03 Sodium 137 (136-148) mmol/L Potassium 5.5 H (3.5-5.1) mmol/L Chloride 96 L (98-107) mmol/L Carbon Dioxide 26.2 (21.0-32.0) mmol/L BUN 59 H (7.0-18.0) mg/dL Creatinine 13.6 H (0.8-1.3) mg/dL Est Cr Clr Drug Dosing TNP Estimated GFR (MDRD) 3.7 ml/min Glucose 244 H (74-106) mg/dL Calcium 8.7 (8.5-10.1) mg/dL Phosphorus 4.6 (2.6-4.7) mg/dL Magnesium 2.2 (1.8-2.4) mg/dL Total Bilirubin 0.4 (0.2-1.0) mg/dL AST 14 L (15-37) IU/L ALT 30 (14-63) IU/L Alkaline Phosphatase 68 (46-116) U/L Troponin I < 0.050 (0.000-0.056) ng/mL C-Reactive Protein 5.40 H (0.00-0.90) mg/dL Total Protein 7.5 (6.4-8.2) g/dL Albumin 3.7 (3.4-5.0) g/dL Globulin 3.8 (2.6-4.0) g/dL Albumin/Globulin Ratio 1.0 (0.9-1.6) Amylase (25-115) U/L Lipase (73-393) U/L Fluid Type Fluid Color Fluid Appearance Fluid WBC /uL Fluid RBC /uL Fluid Mononuclear Cell % Fl Polymorphonucl Cell % Fluid Glucose mg/dL Fluid Amylase U/L SARS CoV-2 RNA Rapid SHASTA (NEGATIVE) 11/13/19 11/13/19 11/13/19 Range/Units 08:40 08:40 09:40 WBC (4.0-11.0) K/uL RBC (4.50-5.90) M/uL Hgb (13.0-17.0) g/dL Hct (38.0-50.0) % MCV (80.0-98.0) fL MCH (27.0-32.0) pg MCHC (31.0-37.0) g/dL RDW Std Deviation (28.0-62.0) fl RDW Coeff of Robert (11.0-15.0) % Plt Count (150-400) K/uL MPV (7.40-12.00) fL Neut % (Auto) (48.0-80.0) % Lymph % (Auto) (16.0-40.0) % [place] % (Auto) (0.0-15.0) % Eos % (Auto) (0.0-7.0) % Baso % (Auto) (0.0-1.5) % Neut # (Auto) (1.4-5.7) K/uL Lymph # (Auto) (0.6-2.4) K/uL [place] # (Auto) (0.0-0.8) K/uL Eos # (Auto) (0.0-0.7) K/uL Baso # (Auto) (0.0-0.1) K/uL Nucleated RBC % /100WBC Nucleated RBCs # K/uL ESR 66 H (0-19) mm/hr INR Sodium (136-148) mmol/L Potassium (3.5-5.1) mmol/L Chloride (98-107) mmol/L Carbon Dioxide (21.0-32.0) mmol/L BUN (7.0-18.0) mg/dL Creatinine (0.8-1.3) mg/dL Est Cr Clr Drug Dosing Estimated GFR (MDRD) ml/min Glucose (74-106) mg/dL Calcium (8.5-10.1) mg/dL Phosphorus (2.6-4.7) mg/dL Magnesium (1.8-2.4) mg/dL Total Bilirubin (0.2-1.0) mg/dL AST (15-37) IU/L ALT (14-63) IU/L Alkaline Phosphatase (46-116) U/L Troponin I (0.000-0.056) ng/mL C-Reactive Protein (0.00-0.90) mg/dL Total Protein (6.4-8.2) g/dL Albumin (3.4-5.0) g/dL Globulin (2.6-4.0) g/dL Albumin/Globulin Ratio (0.9-1.6) Amylase 55 (25-115) U/L Lipase 215 (73-393) U/L Fluid Type PER Fluid Color YELLOW Fluid Appearance CLOUDY Fluid WBC 6340 /uL Fluid RBC 16429 /uL Fluid Mononuclear Cell 56 % Fl Polymorphonucl Cell 44 % Fluid Glucose 4 mg/dL Fluid Amylase 27 U/L SARS CoV-2 RNA Rapid SHASTA (NEGATIVE) 11/13/19 Range/Units 10:53 WBC (4.0-11.0) K/uL RBC (4.50-5.90) M/uL Hgb (13.0-17.0) g/dL Hct (38.0-50.0) % MCV (80.0-98.0) fL MCH (27.0-32.0) pg MCHC (31.0-37.0) g/dL RDW Std Deviation (28.0-62.0) fl RDW Coeff of Robert (11.0-15.0) % Plt Count (150-400) K/uL MPV (7.40-12.00) fL Neut % (Auto) (48.0-80.0) % Lymph % (Auto) (16.0-40.0) % [place] % (Auto) (0.0-15.0) % Eos % (Auto) (0.0-7.0) % Baso % (Auto) (0.0-1.5) % Neut # (Auto) (1.4-5.7) K/uL Lymph # (Auto) (0.6-2.4) K/uL [place] # (Auto) (0.0-0.8) K/uL Eos # (Auto) (0.0-0.7) K/uL Baso # (Auto) (0.0-0.1) K/uL Nucleated RBC % /100WBC Nucleated RBCs # K/uL ESR (0-19) mm/hr INR Sodium (136-148) mmol/L Potassium (3.5-5.1) mmol/L Chloride (98-107) mmol/L Carbon Dioxide (21.0-32.0) mmol/L BUN (7.0-18.0) mg/dL Creatinine (0.8-1.3) mg/dL Est Cr Clr Drug Dosing Estimated GFR (MDRD) ml/min Glucose (74-106) mg/dL Calcium (8.5-10.1) mg/dL Phosphorus (2.6-4.7) mg/dL Magnesium (1.8-2.4) mg/dL Total Bilirubin (0.2-1.0) mg/dL AST (15-37) IU/L ALT (14-63) IU/L Alkaline Phosphatase (46-116) U/L Troponin I (0.000-0.056) ng/mL C-Reactive Protein (0.00-0.90) mg/dL Total Protein (6.4-8.2) g/dL Albumin (3.4-5.0) g/dL Globulin (2.6-4.0) g/dL Albumin/Globulin Ratio (0.9-1.6) Amylase (25-115) U/L Lipase (73-393) U/L Fluid Type Fluid Color Fluid Appearance Fluid WBC /uL Fluid RBC /uL Fluid Mononuclear Cell % Fl Polymorphonucl Cell % Fluid Glucose mg/dL Fluid Amylase U/L SARS CoV-2 RNA Rapid SHASTA NEGATIVE (NEGATIVE) Meds: Medications Generic Name Dose Route Start Last Admin Trade Name Freq PRN Reason Stop Dose Admin Sodium Chloride 500 mls @ 25 mls/hr 11/13/19 10:45 11/13/19 10:46 Normal Saline IV 11/14/19 06:44 25 mls/hr ONETIME ONE Administration Sodium Chloride 10 ml 11/13/19 08:16 11/13/19 08:44 Saline Flush FLUSH 10 ml ASDIRECTED PRN Administration Keep Vein Open Sodium Chloride 2.5 ml 11/13/19 08:16 11/13/19 08:44 Saline Flush FLUSH 2.5 ml ASDIRECTED PRN Administration Keep Vein Open Discontinued Medications Generic Name Dose Route Start Last Admin Trade Name Freq PRN Reason Stop Dose Admin Acetaminophen 1,000 mg 11/13/19 08:59 11/13/19 09:44 Tylenol Extra Strength PO 11/13/19 09:00 1,000 mg ONETIME ONE Administration Calcium Gluconate 1 gm 11/13/19 10:07 11/13/19 10:53 Calcium Gluconate IVPUSH 11/13/19 10:08 1 gm ONETIME ONE Administration Cefepime HCl 2 gm/ Premix 50 mls @ 100 mls/hr 11/13/19 09:39 11/13/19 10:46 IV 11/13/19 10:08 100 mls/hr ONETIME ONE Administration Vancomycin HCl 1.5 gm/ Premix 300 mls @ 300 mls/hr 11/13/19 09:39 11/13/19 11:46 IV 11/13/19 09:40 Not Given ONETIME ONE Vancomycin HCl 1.5 gm/ Premix 300 mls @ 300 mls/hr 11/13/19 09:49 11/13/19 11:31 IV 11/13/19 09:50 300 mls/hr ONETIME ONE Administration Morphine Sulfate 4 mg 11/13/19 09:59 11/13/19 12:55 Morphine IVPUSH 11/13/19 10:00 Not Given ONETIME ONE - Re-Assessments/Exams Free Text/Narrative Re-Assessment/Exam: 11/13/19 0949 Patient will require transfer to outside facility for the need of higher level of care not available at this facility, and the need for crop consultant services unavailable at this facility. Any emergency conditions have been stabilized to the ability of the ED prior to the transfer. Discussed with [facility], they do not have the dialysate for PD flushes, will attempt transfer to other facilities. 11/13/19 10:[address] [facility], they are at full capacity, will attempt other facilities. 11/13/19 10:15 Discussed with [facility], they want his covid test result prior to acceptance. 11/13/19 11:46 Cover test negative, will call [facility] now. 11/13/19 12:11 Spoke with [facility], they have floor discharges pending, they would like to wait to have discharges finalized before accepting the patient, dairy nutritionist states they are not currently on redirect for capacity. I spoke with the ER physician, he agrees this patient should be directly admitted to the floor at this time. Paging their hospitalist. 11/13/19 12:24 Their hospitalist switch his shift at 1 PM, the morning hospitalist once the 1 PM hospitalist to take report, I will call them back at 1 PM for acceptance. 11/13/19 13:08 Case discussed with afternoon hospitalist , will accept transfer to [facility] MEDICAL DECISION MAKING: I reviewed the patients past medical records, lab and radiographic findings. I discussed the case with the patient. My differential diagnosis included: Sepsis, catheter related peritoneal dialysis, pneumonia, COVID. 30 cc/kg IV fluids were held secondary to concerns for fluid overload on auscultation amidst his ESRD on dialysis. Patient is diffusely tender in his abdomen with a clinical history of purulent drainage around the PD site, periotoneal fluid was cloudy, with cell count per fluid from PD catheter demonstrated 6340 WBC, consistent with catheter associated peritonitis, he received IV vancomycin and cefepime. His potassium = 5.5, no peak T waves on EKG, he is due for his dialysis today. He was given 1 g calcium gluconate, he did not sound fluid overload, I do not suspect emergent need for dialysis but he will need to be dialyzed today. Departure - Departure Time of Disposition: 13:09 Disposition: DC/Tfer to Other 70 Condition: Serious Clinical Impression: ESRD (end stage renal disease) on dialysis, Peritonitis due to infected peritoneal dialysis catheter, Hyperkalemia Sepsis Qualifiers: Sepsis type: sepsis due to unspecified organism Sepsis acute organ dysfunction status: unspecified Qualified Code(s): A41.9 - Sepsis, unspecified organism - Discharge Information *PRESCRIPTION DRUG MONITORING PROGRAM REVIEWED*: Not Applicable *COPY OF PRESCRIPTION DRUG MONITORING REPORT IN PATIENT MARY: Not Applicable Referrals: Reyes Castanon MD [Primary Care Provider] - Critical Care Note - Critical Care Note Total Time (mins): 128 Comments: CRITCAL CARE: The high probability of sudden, clinically significant deterioration in the patient's condition required the highest level of my preparedness to intervene urgently. The services I provided to this patient were to treat and/or prevent clinically significant deterioration. Services included the following: chart data review, reviewing nursing notes and/or old charts, documentation time, crop consultant collaboration regarding findings and treatment options, medication orders and management, direct patient care, vital sign assessments and ordering, interpreting and reviewing diagnostic studies/lab tests. Aggregate critical care time includes only time during which I was engaged in work directly related to the patient's care, as described above, whether at the bedside or elsewhere in the Emergency Department. It did not include time spent performing other reported procedures or the services of residents, students, nurses or physician assistants. Frequent interventions and/or frequent repeat evaluations were required as well as counseling and coordination of care regarding prognosis, treatments, and discussions with patient, staff and consultants. Critical Care (excluding other procedures): 128 minutes Sepsis Event Note (ED) - Focused Exam Vital Signs: Vital Signs Temp Temp Pulse Resp BP Pulse Ox 11/13/19 12:46 91 20 181/91 H 99 11/13/19 11:30 99 20 146/75 H 99 11/13/19 11:06 99.9 F 11/13/19 10:14 99.9 F 11/13/19 09:50 20 92 L 11/13/19 09:47 98 20 194/82 H 88 L 11/13/19 09:44 100.7 F H 11/13/19 08:29 100.7 F H 108 H 20 202/91 H 90 L - My Orders Last 24 Hours: My Active Orders 11/13/19 CULTURE URINE [RM] Stat UA W/VIVI RFLX IF INDICATED [URIN] Stat 11/13/19 08:16 Cardiac Monitoring [RC] . DIRECTED Sodium Chloride 0.9% [Saline Flush] 10 ml FLUSH ASDIRECTED PRN Sodium Chloride 0.9% [Saline Flush] 2.5 ml FLUSH ASDIRECTED PRN Saline Lock Insert [OM.PC] Stat 11/13/19 08:17 EKG Documentation Completion [RC] STAT Blood Culture x2 Reflex Set [OM.PC] Stat 11/13/19 08:40 CULTURE BLOOD [BC] Stat PROCALCITONIN [REF] Stat 11/13/19 09:40 CULTURE BODY FLUID + SMEAR [RM] Stat 11/13/19 10:13 CULTURE BLOOD [BC] Stat 11/13/19 10:53 CORONAVIRUS COVID-19 PCR PHL Stat - Assessment/Plan Last 24 Hours: My Active Orders 11/13/19 CULTURE URINE [RM] Stat UA W/VIVI RFLX IF INDICATED [URIN] Stat 11/13/19 08:16 Cardiac Monitoring [RC] . DIRECTED Sodium Chloride 0.9% [Saline Flush] 10 ml FLUSH ASDIRECTED PRN Sodium Chloride 0.9% [Saline Flush] 2.5 ml FLUSH ASDIRECTED PRN Saline Lock Insert [OM.PC] Stat 11/13/19 08:17 EKG Documentation Completion [RC] STAT Blood Culture x2 Reflex Set [OM.PC] Stat 11/13/19 08:40 CULTURE BLOOD [BC] Stat PROCALCITONIN [REF] Stat 11/13/19 09:40 CULTURE BODY FLUID + SMEAR [RM] Stat 11/13/19 10:13 CULTURE BLOOD [BC] Stat 11/13/19 10:53 CORONAVIRUS COVID-19 PCR PHL Stat
[2019-11-13] MEDS ORDERED: Acetaminophen 500 MG Tab PO ONE (08:59)
[2019-11-13 09:14] LABS: BLOOD UREA NITROGEN,BUN 59 mg/dL (7.0-18.0); CARBON DIOXIDE,CO2 26.2 mmol/L (21.0-32.0); CHLORIDE,CL 96 mmol/L (98-107); GLUCOSE RANDOM 244 mg/dL (74-106); POTASSIUM,K 5.5 mmol/L (3.5-5.1); SODIUM,NA 137 mmol/L (136-148)
--- NOTE | 2019-11-13 09:16 | CR ---
Chest: 2 views of the chest were obtained. Comparison: Previous chest x-ray of 11/06/27 and 03/27/19. Heart size at the upper limits of normal. Lungs show no acute parenchymal change. Small metallic foreign body is projected within the anterior left chest. This is stable from previous exam. Bony structures appear within normal limits for the patient's age. Impression: 1. Nothing acute seen on 2 view chest x-ray. Diagnostic code #2 This report was dictated in MDT
[2019-11-13 09:26] LABS: LIPASE 215 U/L (73-393)
[2019-11-13] MEDS ORDERED: Cefepime 2 GM in Premix Bag 1 BAG IV ONE (09:39)
[2019-11-13] MEDS ORDERED: Morphine 4 MG/ML Syringe IVPUSH ONE (09:59)
[2019-11-13] MEDS ORDERED: Calcium Gluconate 10% 1 GM/10 ML SDV IVPUSH ONE (10:07)
[2019-11-13] MEDS ORDERED: Sodium Chloride 0.9% 500 ML IV ONE (10:45)
--- NOTE | 2019-11-13 11:12 | CT ---
CT abdomen and pelvis Technique: Multiple axial sections were obtained from above the dome of the diaphragm inferiorly through the pubic symphysis. Intravenous contrast was utilized. No oral contrast has been given. Comparison: No prior abdominal imaging is available. Findings: Visualized lung bases show nothing acute. Liver contains no focal parenchymal abnormality. Gallbladder contains no calcified gallstones. Spleen size is normal. Soft tissue nodule off the spleen compatible with accessory splenic tissue is noted. Adrenal glands show no nodule. Cystic lesion is seen off the inferior left kidney measuring approximately 2.5 cm. Small cortical cyst is felt to be present within the mid to lower right kidney measuring 5 mm. No additional abnormalities are appreciated within the kidneys. Pancreas shows no discrete abnormality. Aorta shows atherosclerotic calcification without aneurysm. No retroperitoneal adenopathy or mesenteric abnormalities are seen. Inflammatory change is seen around a portion of the sigmoid colon. This also occurs around an adjacent catheter presumably due to peritoneal dialysis catheter. Findings could represent a slight colitis or represent irritation of the colon from the catheter. No free fluid is appreciated. There is slight inflammatory change within the subcutaneous fat around this catheter. Uncertain if this is chronic due to scarring or represents mild cellulitis. Appendix is not visualized with certainty. Bone window settings were reviewed. Mild degenerative change is noted within the spine. No acute osseous finding is appreciated. Impression: 1. Slight inflammatory change around the sigmoid colon. As mentioned above, there is a catheter being seen in this area presumably due to peritoneal dialysis catheter. Uncertain if findings represent inflammatory change from localized colitis or whether this represents inflammatory change from irritation of the catheter against the sigmoid colon. 2. Mild increased density within subcutaneous fat around this catheter which may represent scarring although difficult to exclude cellulitis. 3. No other acute finding is seen. Other findings believed to be incidental as noted above. Diagnostic code #3 This report was dictated in MDT
[2019-11-13 14:36] VITALS: BP 156/87; PULSE 89
[2019-11-13] MEDS ORDERED: Iopamidol 755 MG/ML 500 ML Multipack Bottle IVPUSH STA (18:17)
== END 2019-11-13 15:15 | disposition other institution (70) ==
LOC: MW.ED 08:03
DX: A41.9 Sepsis, unspecified organism (principal); T85.71XA Infection and inflammatory reaction due to peritoneal dialysis catheter, initial encounter; N18.6 End stage renal disease; K65.9 Peritonitis, unspecified; I25.10 Atherosclerotic heart disease of native coronary artery without angina pectoris; I13.2 Hypertensive heart and chronic kidney disease with heart failure and with stage 5 chronic kidney disease, or end stage renal disease; I50.9 Heart failure, unspecified; F41.9 Anxiety disorder, unspecified; F32.9 Major depressive disorder, single episode, unspecified; E66.9 Obesity, unspecified; E10.22 Type 1 diabetes mellitus with diabetic chronic kidney disease; Z79.82 Long term (current) use of aspirin; Z79.4 Long term (current) use of insulin; Z79.899 Other long term (current) drug therapy; Z99.2 Dependence on renal dialysis; Z20.828 Contact with and (suspected) exposure to other viral communicable diseases
CPT/HCPCS: 36415; 71046; 74177; 80053; 82150; 82945; 83690; 83735; 84100; 84145; 84484; 85025; 85610; 85652; 86140; 87040; 87070; 87077; 87186; 87205; 89050; 93005; 96365; 96367; 96375; 99285; A9270; J0610; J0692; J3370; J7040; Q9967; U0002; 87086; 93010; 99291; 99292

== ENCOUNTER 2020-01-22 05:42 | Emergency (ER) | payer MEDICARE, MEDICAID ==
--- NOTE | 2020-01-22 06:09 | EDM.PDOC ---
ED HPI GENERAL MEDICAL PROBLEM - General Chief Complaint: Respiratory Problem Stated Complaint: COVID SYMPTOMS Time Seen by Provider: 01/22/20 06:03 Source of Information: Reports: Patient History Limitations: Reports: No Limitations - History of Present Illness INITIAL COMMENTS - FREE TEXT/NARRATIVE: Patient is a 69-year-old male sent over from dialysis for low-grade fever and fatigue. Patient states he been feeling this way since last week. Patient feels so tired and weak he did not go to dialysis on Wednesday. Patient currently states right now he does not feel like himself he just feels tired and has no energy. Patient denies any fever chills or body aches. Patient also denies any nausea vomiting. Patient states she still makes a small amount of urine has not on a water restriction for dialysis. - Related Data Allergies Allergy/AdvReac Type Severity Reaction Status Date / Time No Known Allergies Allergy Verified 11/13/19 08:32 Home Meds: Home Meds FLUoxetine [PROzac] 10 mg PO BEDTIME 11/09/16 [History] Gabapentin [Neurontin] 200 mg PO BID 11/09/16 [History] LORazepam 0.5 mg PO DAILY PRN 11/09/16 [History] Metoprolol Tartrate [Lopressor] 50 mg PO BID 11/09/16 [History] Zolpidem [Ambien] 10 mg PO BEDTIME 11/09/16 [History] amLODIPine [Norvasc] 20 mg PO DAILY 11/09/16 [History] cloNIDine [Catapres] 0.2 mg PO BID PRN 11/09/16 [History] Aspirin [Halfprin] 81 mg PO BRK 01/08/17 [History] Insulin Aspart [Novolog] 4 unit SQ TIDAC 01/08/17 [History] atorvaSTATin Calcium [Atorvastatin Calcium] 20 mg PO BEDTIME 01/08/17 [History] Insulin Degludec [Tresiba] 40 unit SQ DAILY 09/14/18 [History] Lisinopril 10 mg PO DAILY 09/14/18 [History] PARoxetine [Paxil] 20 mg PO DAILY 09/14/18 [History] rOPINIRole [Requip] 2 mg PO DAILY 09/14/18 [History] Azithromycin 250 mg PO DAILY 5 Days #6 tablet 01/22/20 [Rx] Past Medical History - Past Health History Medical/Surgical History: Denies Medical/Surgical History HEENT History: Reports: Other (See Below) Other HEENT History: wears glasses Cardiovascular History: Reports: Heart Failure, Hypertension, Other (See Below) Other Cardiovascular History: transferred to [facility] previously to cardiac issues. ACS Respiratory History: Reports: Intubation, Previous Gastrointestinal History: Reports: None Genitourinary History: Reports: Acute Renal Failure, Chronic Renal Insuffiency Other Genitourinary History: pt on dialysis Musculoskeletal History: Reports: Fracture Other Musculoskeletal History: hx of fx right foot Neurological History: Reports: None Psychiatric History: Reports: Anxiety, Depression Endocrine/Metabolic History: Reports: Diabetes, Type I, Obesity/BMI 30+ Hematologic History: Reports: None Immunologic History: Reports: None Oncologic (Cancer) History: Reports: None Dermatologic History: Reports: None - Infectious Disease History Infectious Disease History: Reports: Chicken Pox - Past Surgical History HEENT Surgical History: Reports: None Cardiovascular Surgical History: Reports: Other (See Below) Other Cardiovascular Surgeries/Procedures: Insertion of dialysis cathete and AV Shunt Respiratory Surgical History: Reports: Other (See Below) GI Surgical History: Reports: Appendectomy Male Surgical History: Reports: None Endocrine Surgical History: Reports: None Neurological Surgical History: Reports: None Musculoskeletal Surgical History: Reports: Shoulder Surgery Other Musculoskeletal Surgeries/Procedures:: right RTCR Oncologic Surgical History: Reports: None Social & Family History - Family History Family Medical History: No Pertinent Family History - Caffeine Use Caffeine Use: Reports: None Caffeine Use Comment: 1cup/day ED ROS GENERAL - Review of Systems Review Of Systems: See Below Constitutional: Reports: Weakness, Fatigue HEENT: Reports: No Symptoms Respiratory: Reports: No Symptoms Cardiovascular: Reports: No Symptoms Endocrine: Reports: No Symptoms GI/Abdominal: Reports: No Symptoms : Reports: No Symptoms Musculoskeletal: Reports: No Symptoms Skin: Reports: No Symptoms Neurological: Reports: No Symptoms Psychiatric: Reports: No Symptoms Hematologic/Lymphatic: Reports: No Symptoms Immunologic: Reports: No Symptoms ED EXAM, GENERAL - Physical Exam Exam: See Below Exam Limited By: No Limitations General Appearance: Alert Eye Exam: Bilateral Eye: EOMI, PERRL Respiratory/Chest: No Respiratory Distress, Lungs Clear, Normal Breath Sounds Cardiovascular: Normal Peripheral Pulses, Regular Rate, Rhythm GI/Abdominal: Normal Bowel Sounds, Soft, Non-Tender Extremities: Normal Inspection, Normal Range of Motion Neurological: Alert, Oriented, CN II-XII Intact #1 Interpretation EKG Date: 01/22/20 Time: 06:00 Rhythm: NSR Rate (Beats/Min): 70 ST-T: Normal Course - Vital Signs Last Recorded V/S: Last Vital Signs Temp 99.9 F 01/22/20 05:58 Pulse 67 01/22/20 06:48 Resp 24 H 01/22/20 06:48 BP 145/74 H 01/22/20 06:48 Pulse Ox 100 01/22/20 06:48 - Orders/Labs/Meds Orders: Active Orders 24 hr Category Date Time Status EKG Documentation Completion [RC] STAT Care 01/22/20 05:59 Active COMPREHENSIVE METABOLIC PN,CMP [CHEM] Stat Lab 01/22/20 05:58 Results CULTURE BLOOD [BC] Stat Lab 01/22/20 05:55 Results CULTURE BLOOD [BC] Stat Lab 01/22/20 06:23 Received MAGNESIUM [CHEM] Stat Lab 01/22/20 05:58 Results PHOSPHORUS [CHEM] Stat Lab 01/22/20 05:58 Results Azithromycin [Zithromax] 500 mg Med 01/22/20 06:45 Active Sodium Chloride 0.9% [Normal Saline (AdvBag)] 250 ml IV ONETIME cefTRIAXone [Rocephin in Dextrose,Iso-Osm 1 GM/50 ML] 1 Med 01/22/20 06:33 Active gm Premix Bag 1 bag IV ONETIME Blood Culture x2 Reflex Set [OM.PC] Stat Oth 01/22/20 05:58 Ordered Medication Orders Azithromycin 500 mg/ Sodium (Chloride) 250 mls @ 250 mls/hr IV ONETIME MARITA Labs: Laboratory Tests 01/22/20 01/22/20 01/22/20 Range/Units 05:58 05:58 05:58 WBC 9.19 (4.0-11.0) K/uL RBC 3.28 L (4.50-5.90) M/uL Hgb 9.9 L (13.0-17.0) g/dL Hct 29.9 L (38.0-50.0) % MCV 91.2 (80.0-98.0) fL MCH 30.2 (27.0-32.0) pg MCHC 33.1 (31.0-37.0) g/dL RDW Std Deviation 47.3 (28.0-62.0) fl RDW Coeff of Robert 14 (11.0-15.0) % Plt Count 198 (150-400) K/uL MPV 11.40 (7.40-12.00) fL Neut % (Auto) 69.0 (48.0-80.0) % Lymph % (Auto) 14.9 L (16.0-40.0) % Fallon % (Auto) 13.4 (0.0-15.0) % Eos % (Auto) 2.4 (0.0-7.0) % Baso % (Auto) 0.3 (0.0-1.5) % Neut # (Auto) 6.3 H (1.4-5.7) K/uL Lymph # (Auto) 1.4 (0.6-2.4) K/uL Fallon # (Auto) 1.2 H (0.0-0.8) K/uL Eos # (Auto) 0.2 (0.0-0.7) K/uL Baso # (Auto) 0.0 (0.0-0.1) K/uL Nucleated RBC % 0.0 /100WBC Nucleated RBCs # 0 K/uL Lactate 0.6 (0.20-2.00) mmol/L Sodium 138 (136-148) mmol/L Potassium 5.1 (3.5-5.1) mmol/L Chloride 100 (98-107) mmol/L Carbon Dioxide 18.7 L (21.0-32.0) mmol/L BUN 108 H (7.0-18.0) mg/dL Creatinine 19.0 H (0.8-1.3) mg/dL Est Cr Clr Drug Dosing TNP Estimated GFR (MDRD) 2.5 ml/min Glucose 129 H (74-106) mg/dL Calcium 8.1 L (8.5-10.1) mg/dL Magnesium 2.4 (1.8-2.4) mg/dL Total Bilirubin 0.5 (0.2-1.0) mg/dL AST 26 (15-37) IU/L ALT 22 (14-63) IU/L Alkaline Phosphatase 103 (46-116) U/L Total Protein 6.8 (6.4-8.2) g/dL Albumin 3.3 L (3.4-5.0) g/dL Globulin 3.5 (2.6-4.0) g/dL Albumin/Globulin Ratio 0.9 (0.9-1.6) Influenza Type A RNA (NEGATIVE) Influenza Type B RNA (NEGATIVE) SARS-CoV-2 RNA (SHASTA) (NEGATIVE) 01/22/20 Range/Units 06:01 WBC (4.0-11.0) K/uL RBC (4.50-5.90) M/uL Hgb (13.0-17.0) g/dL Hct (38.0-50.0) % MCV (80.0-98.0) fL MCH (27.0-32.0) pg MCHC (31.0-37.0) g/dL RDW Std Deviation (28.0-62.0) fl RDW Coeff of Robert (11.0-15.0) % Plt Count (150-400) K/uL MPV (7.40-12.00) fL Neut % (Auto) (48.0-80.0) % Lymph % (Auto) (16.0-40.0) % Fallon % (Auto) (0.0-15.0) % Eos % (Auto) (0.0-7.0) % Baso % (Auto) (0.0-1.5) % Neut # (Auto) (1.4-5.7) K/uL Lymph # (Auto) (0.6-2.4) K/uL Fallon # (Auto) (0.0-0.8) K/uL Eos # (Auto) (0.0-0.7) K/uL Baso # (Auto) (0.0-0.1) K/uL Nucleated RBC % /100WBC Nucleated RBCs # K/uL Lactate (0.20-2.00) mmol/L Sodium (136-148) mmol/L Potassium (3.5-5.1) mmol/L Chloride (98-107) mmol/L Carbon Dioxide (21.0-32.0) mmol/L BUN (7.0-18.0) mg/dL Creatinine (0.8-1.3) mg/dL Est Cr Clr Drug Dosing Estimated GFR (MDRD) ml/min Glucose (74-106) mg/dL Calcium (8.5-10.1) mg/dL Magnesium (1.8-2.4) mg/dL Total Bilirubin (0.2-1.0) mg/dL AST (15-37) IU/L ALT (14-63) IU/L Alkaline Phosphatase (46-116) U/L Total Protein (6.4-8.2) g/dL Albumin (3.4-5.0) g/dL Globulin (2.6-4.0) g/dL Albumin/Globulin Ratio (0.9-1.6) Influenza Type A RNA NEGATIVE (NEGATIVE) Influenza Type B RNA NEGATIVE (NEGATIVE) SARS-CoV-2 RNA (SHASTA) NEGATIVE (NEGATIVE) Meds: Medications Generic Name Dose Route Start Last Admin Trade Name Freq PRN Reason Stop Dose Admin Azithromycin 500 mg/ Sodium 250 mls @ 250 mls/hr 01/22/20 06:45 Chloride IV ONETIME MARITA Discontinued Medications Generic Name Dose Route Start Last Admin Trade Name Freq PRN Reason Stop Dose Admin Ceftriaxone Sodium/Dextrose 1 50 mls @ 100 mls/hr 01/22/20 06:33 01/22/20 06:49 gm/ Premix IV 01/22/20 07:02 100 mls/hr ONETIME ONE Administration - Re-Assessments/Exams Free Text/Narrative Re-Assessment/Exam: 01/22/20 07:02 Patient Covid test is negative. Patient x-ray did show some edema versus pneumonia but patient has a small low-grade fever but no white count patient has no cough or shortness of breath we did give patient antibiotics. Patient has a creatinine of 19 potassium is normal. Patient needs dialysis and we do not have inpatient dialysis we are going to transfer patient for admission however patient is refusing and wants AMA we did speak to dialysis here that can take patient in complete dialysis here patient does not want to be admitted so patient will be discharged. Departure - Departure Time of Disposition: 07:03 Disposition: Against Medical Advice 07 Condition: Good Clinical Impression: Missed dialysis - Discharge Information *PRESCRIPTION DRUG MONITORING PROGRAM REVIEWED*: Not Applicable *COPY OF PRESCRIPTION DRUG MONITORING REPORT IN PATIENT MARY: Not Applicable Referrals: PCP,None [Primary Care Provider] - Forms: ED Department Discharge Additional Instructions: The following information is given to patients seen in the emergency department who are being discharged to home. This information is to outline your options for follow-up care. We provide all patients seen in our emergency department with a follow-up referral. The need for follow-up, as well as the timing and circumstances, are variable depending upon the specifics of your emergency department visit. If you don't have a primary care physician on staff, we will provide you with a referral. We always advise you to contact your personal physician following an emergency department visit to inform them of the circumstance of the visit and for follow-up with them and/or the need for any referrals to a consulting specialist. The emergency department will also refer you to a specialist when appropriate. This referral assures that you have the opportunity for follow-up care with a specialist. All of these measure are taken in an effort to provide you with optimal care, which includes your follow-up. Under all circumstances we always encourage you to contact your private physician who remains a resource for coordinating your care. When calling for follow-up care, please make the office aware that this follow-up is from your recent emergency room visit. If for any reason you are refused follow-up, please contact the [facility] Emergency Department at and asked to speak to the emergency department charge nurse. Please follow up with your primary care physician. If you do not have a primary care physician, see below: [facility] [address] [place] [id number] [facility] [address] [place] [id number] All of your primary care physician if you have any fevers chills or increased shortness of breath please return to the ED. Sepsis Event Note (ED) - Evaluation Sepsis Screening Result: Possible Sepsis Risk - Focused Exam Vital Signs: Vital Signs Temp Pulse Resp BP Pulse Ox 01/22/20 06:48 67 24 H 145/74 H 100 01/22/20 06:26 69 26 H 139/79 100 01/22/20 05:58 99.9 F 74 24 H 139/65 92 L - My Orders Last 24 Hours: My Active Orders 01/22/20 05:55 CULTURE BLOOD [BC] Stat 01/22/20 05:58 COMPREHENSIVE METABOLIC PN,CMP [CHEM] Stat MAGNESIUM [CHEM] Stat PHOSPHORUS [CHEM] Stat Blood Culture x2 Reflex Set [OM.PC] Stat 01/22/20 05:59 EKG Documentation Completion [RC] STAT 01/22/20 06:23 CULTURE BLOOD [BC] Stat 01/22/20 06:33 cefTRIAXone [Rocephin in Dextrose,Iso-Osm 1 GM/50 ML] 1 gm Premix Bag 1 bag IV ONETIME 01/22/20 06:45 Azithromycin [Zithromax] 500 mg Sodium Chloride 0.9% [Normal Saline (AdvBag)] 250 ml IV ONETIME - Assessment/Plan Last 24 Hours: My Active Orders 01/22/20 05:55 CULTURE BLOOD [BC] Stat 01/22/20 05:58 COMPREHENSIVE METABOLIC PN,CMP [CHEM] Stat MAGNESIUM [CHEM] Stat PHOSPHORUS [CHEM] Stat Blood Culture x2 Reflex Set [OM.PC] Stat 01/22/20 05:59 EKG Documentation Completion [RC] STAT 01/22/20 06:23 CULTURE BLOOD [BC] Stat 01/22/20 06:33 cefTRIAXone [Rocephin in Dextrose,Iso-Osm 1 GM/50 ML] 1 gm Premix Bag 1 bag IV ONETIME 01/22/20 06:45 Azithromycin [Zithromax] 500 mg Sodium Chloride 0.9% [Normal Saline (AdvBag)] 250 ml IV ONETIME Plan: Patient is a 69-year-old male who presents today for weakness fatigue. Patient also missed dialysis last Wednesday. Will obtain labs Covid swab and reassess.
--- NOTE | 2020-01-22 06:30 | CR ---
INDICATION: Missed dialysis now with weakness/fatigue. COMPARISON: November 13, 2019 TECHNIQUE: Single-view portable chest radiograph obtained January 22, 2020 at 6:05 a.m. FINDINGS: TUBES AND LINES: None. HEART AND MEDIASTINUM: The heart size is normal. The mediastinal contour appears normal for patient age. LUNGS AND PLEURAL SPACES: Vascular congestion without overt edema. Minimal airspace process at the left base could represent asymmetric development of edema, atelectasis, aspiration or developing pneumonia.The pleural spaces are unremarkable. OSSEOUS STRUCTURES: Age-appropriate appearance. No acute focal finding. IMPRESSION: 1. Mild vascular congestion without overt edema. 2. Minimal airspace process at the left base could represent asymmetric development of edema, atelectasis, aspiration or developing pneumonia. Dictated by Karl Rai MD @ Jan 22 2020 6:25AM Signed by Dr. Karl Rai @ Jan 22 2020 6:27AM
[2020-01-22] MEDS ORDERED: cefTRIAXone 1 GM in Premix Bag 1 BAG IV ONE (06:33)
[2020-01-22 06:44] LABS: BLOOD UREA NITROGEN,BUN 108 mg/dL (7.0-18.0); CARBON DIOXIDE,CO2 18.7 mmol/L (21.0-32.0); CHLORIDE,CL 100 mmol/L (98-107); GLUCOSE RANDOM 129 mg/dL (74-106); POTASSIUM,K 5.1 mmol/L (3.5-5.1); SODIUM,NA 138 mmol/L (136-148)
[2020-01-22] MEDS ORDERED: Azithromycin 500 MG in Sodium Chloride 0.9% 250 ML IV SCH (06:45)
[2020-01-22 06:49] VITALS: BP 145/74; PULSE 67
[2020-01-22 06:55] LABS: CORONAVIRUS COVID-19 NAA NEGATIVE (NEGATIVE); INFLUENZA A NAA NEGATIVE (NEGATIVE); INFLUENZA B NAA NEGATIVE (NEGATIVE)
[2020-01-22] MEDS ORDERED: Acetaminophen 500 MG Tab PO ONE (07:02)
[2020-01-22] MEDS ORDERED: Acetaminophen 500 MG Tab ONE (07:03)
== END 2020-01-22 07:13 | disposition left against medical advice (07) ==
LOC: MW.ED 05:42
DX: Z91.15 Patient's noncompliance with renal dialysis (principal); R50.9 Fever, unspecified; R53.83 Other fatigue; R53.1 Weakness; I13.0 Hypertensive heart and chronic kidney disease with heart failure and stage 1 through stage 4 chronic kidney disease, or unspecified chronic kidney disease; I50.9 Heart failure, unspecified; N18.9 Chronic kidney disease, unspecified; E10.22 Type 1 diabetes mellitus with diabetic chronic kidney disease; E66.9 Obesity, unspecified; F41.9 Anxiety disorder, unspecified; F32.9 Major depressive disorder, single episode, unspecified; Z20.828 Contact with and (suspected) exposure to other viral communicable diseases; Z90.49 Acquired absence of other specified parts of digestive tract; Z79.82 Long term (current) use of aspirin; Z79.899 Other long term (current) drug therapy
CPT/HCPCS: 0240U; 36415; 71045; 80053; 83605; 83735; 84100; 85025; 87040; 93005; 96365; 99284; A9270; J0696; 93010; 99283

== ENCOUNTER 2020-04-01 07:31 | Emergency (ER) | payer MEDICARE, MEDICAID ==
[2020-04-01] MEDS ORDERED: LORazepam 1 MG Tab PO ONE (07:36)
--- NOTE | 2020-04-01 07:39 | EDM.PDOC ---
ED HPI GENERAL MEDICAL PROBLEM - General Stated Complaint: ANXIETY Time Seen by Provider: 04/01/20 07:33 Source of Information: Reports: Patient History Limitations: Reports: No Limitations - History of Present Illness INITIAL COMMENTS - FREE TEXT/NARRATIVE: 69-year-old male past medical history end-stage renal disease, CAD, hypertension, pancreatitis, noncompliance presents for anxiety. Patient forgot to take his anxiety medications this morning. This patient was receiving hemodialysis this morning and went through about 1 hour. He became very anxious prompting them to stop dialyzing the patient. He presents with anxiety and would like to return to finish his dialysis. He denies chest pain or difficulty breathing. He does note that he feels like he is breathing little fast. He notes that he missed all of his blood pressure medications as well this morning. He states that sometimes he forgets to take these medicines before dialysis and it does make him very anxious. - Related Data Allergies Allergy/AdvReac Type Severity Reaction Status Date / Time No Known Allergies Allergy Verified 04/01/20 07:43 Home Meds: Home Meds FLUoxetine [PROzac] 10 mg PO BEDTIME 11/09/16 [History] Gabapentin [Neurontin] 200 mg PO BID 11/09/16 [History] LORazepam 0.5 mg PO DAILY PRN 11/09/16 [History] Metoprolol Tartrate [Lopressor] 50 mg PO BID 11/09/16 [History] Zolpidem [Ambien] 10 mg PO BEDTIME 11/09/16 [History] amLODIPine [Norvasc] 20 mg PO DAILY 11/09/16 [History] cloNIDine [Catapres] 0.2 mg PO BID PRN 11/09/16 [History] Aspirin [Halfprin] 81 mg PO BRK 01/08/17 [History] Insulin Aspart [Novolog] 4 unit SQ TIDAC 01/08/17 [History] atorvaSTATin Calcium [Atorvastatin Calcium] 20 mg PO BEDTIME 01/08/17 [History] Insulin Degludec [Tresiba] 40 unit SQ DAILY 09/14/18 [History] Lisinopril 10 mg PO DAILY 09/14/18 [History] PARoxetine [Paxil] 20 mg PO DAILY 09/14/18 [History] rOPINIRole [Requip] 2 mg PO DAILY 09/14/18 [History] Azithromycin 250 mg PO DAILY 5 Days #6 tablet 01/22/20 [Rx] Past Medical History - Past Health History Medical/Surgical History: Denies Medical/Surgical History HEENT History: Reports: Other (See Below) Other HEENT History: wears glasses Cardiovascular History: Reports: Heart Failure, Hypertension, Other (See Below) Other Cardiovascular History: transferred to [place] previously to cardiac issues. ACS Respiratory History: Reports: Intubation, Previous Gastrointestinal History: Reports: None Genitourinary History: Reports: Acute Renal Failure, Chronic Renal Insuffiency Other Genitourinary History: pt on dialysis Musculoskeletal History: Reports: Fracture Other Musculoskeletal History: hx of fx right foot Neurological History: Reports: None Psychiatric History: Reports: Anxiety, Depression Endocrine/Metabolic History: Reports: Diabetes, Type I, Obesity/BMI 30+ Hematologic History: Reports: None Immunologic History: Reports: None Oncologic (Cancer) History: Reports: None Dermatologic History: Reports: None - Infectious Disease History Infectious Disease History: Reports: Chicken Pox - Past Surgical History HEENT Surgical History: Reports: None Cardiovascular Surgical History: Reports: Other (See Below) Other Cardiovascular Surgeries/Procedures: Insertion of dialysis cathete and AV Shunt Respiratory Surgical History: Reports: Other (See Below) GI Surgical History: Reports: Appendectomy Male Surgical History: Reports: None Endocrine Surgical History: Reports: None Neurological Surgical History: Reports: None Musculoskeletal Surgical History: Reports: Shoulder Surgery Other Musculoskeletal Surgeries/Procedures:: right RTCR Oncologic Surgical History: Reports: None Social & Family History - Family History Family Medical History: No Pertinent Family History - Caffeine Use Caffeine Use: Reports: None Caffeine Use Comment: 1cup/day ED ROS GENERAL - Review of Systems Review Of Systems: Comprehensive ROS is negative, except as noted in HPI. ED EXAM, GENERAL - Physical Exam Exam: See Below Exam Limited By: No Limitations General Appearance: Alert, WD/WN, No Apparent Distress, Anxious Throat/Mouth: Normal Voice, No Airway Compromise Head: Atraumatic, Normocephalic Respiratory/Chest: No Respiratory Distress, No Accessory Muscle Use Cardiovascular: Normal Peripheral Pulses, Regular Rate, Rhythm Extremities: Normal Inspection Neurological: Alert Psychiatric: Normal Affect, Normal Mood, Anxious Skin Exam: Warm, Dry, Intact, Normal Color #1 Interpretation EKG Date: 04/01/20 Time: 08:26 Rhythm: NSR Rate (Beats/Min): 74 [place]: Normal P-Wave: Present QRS: Normal ST-T: Normal QT: Prolonged (514) IL/PQ Interval: 144 Comparison: NA - No Prior EKG EKG Interpretation Comments: non-ischemic EKG w/ prolonged QTc 514 Course - Vital Signs Last Recorded V/S: Last Vital Signs Temp 97.6 F 04/01/20 07:43 Pulse 75 04/01/20 08:24 Resp 20 04/01/20 08:24 BP 212/89 H 04/01/20 08:24 Pulse Ox 97 04/01/20 08:24 - Orders/Labs/Meds Orders: Active Orders 24 hr Category Date Time Status EKG Documentation Completion [RC] STAT Care 04/01/20 08:15 Active Labs: Laboratory Tests 04/01/20 04/01/20 04/01/20 Range/Units 08:25 08:25 08:25 WBC 10.95 (4.0-11.0) K/uL RBC 4.12 L (4.50-5.90) M/uL Hgb 12.3 L (13.0-17.0) g/dL Hct 38.0 (38.0-50.0) % MCV 92.2 (80.0-98.0) fL MCH 29.9 (27.0-32.0) pg MCHC 32.4 (31.0-37.0) g/dL RDW Std Deviation 52.9 (28.0-62.0) fl RDW Coeff of Robert 16 H (11.0-15.0) % Plt Count 200 (150-400) K/uL MPV 11.80 (7.40-12.00) fL Neut % (Auto) 74.7 (48.0-80.0) % Lymph % (Auto) 13.0 L (16.0-40.0) % [place] % (Auto) 8.0 (0.0-15.0) % Eos % (Auto) 3.9 (0.0-7.0) % Baso % (Auto) 0.4 (0.0-1.5) % Neut # (Auto) 8.2 H (1.4-5.7) K/uL Lymph # (Auto) 1.4 (0.6-2.4) K/uL [place] # (Auto) 0.9 H (0.0-0.8) K/uL Eos # (Auto) 0.4 (0.0-0.7) K/uL Baso # (Auto) 0.0 (0.0-0.1) K/uL Nucleated RBC % 0.0 /100WBC Nucleated RBCs # 0 K/uL Lactate 1.4 (0.20-2.00) mmol/L Sodium 140 (136-148) mmol/L Potassium 4.5 (3.5-5.1) mmol/L Chloride 100 (98-107) mmol/L Carbon Dioxide 26.2 (21.0-32.0) mmol/L BUN 57 H (7.0-18.0) mg/dL Creatinine 9.8 H (0.8-1.3) mg/dL Est Cr Clr Drug Dosing 7.55 mL/min Estimated GFR (MDRD) 5.4 ml/min Glucose 167 H (74-106) mg/dL Calcium 9.3 (8.5-10.1) mg/dL Magnesium 2.0 (1.8-2.4) mg/dL Total Bilirubin 0.6 (0.2-1.0) mg/dL AST 14 L (15-37) IU/L ALT 18 (14-63) IU/L Alkaline Phosphatase 85 (46-116) U/L Troponin I < 0.050 (0.000-0.056) ng/mL Total Protein 7.6 (6.4-8.2) g/dL Albumin 3.9 (3.4-5.0) g/dL Globulin 3.7 (2.6-4.0) g/dL Albumin/Globulin Ratio 1.1 (0.9-1.6) Meds: Medications Discontinued Medications Generic Name Dose Route Start Last Admin Trade Name Freq PRN Reason Stop Dose Admin Amlodipine Besylate 20 mg 04/01/20 07:44 04/01/20 07:49 Norvasc PO 04/01/20 07:45 20 mg ONETIME ONE Administration Clonidine HCl 0.2 mg 04/01/20 07:44 04/01/20 07:49 Catapres PO 04/01/20 07:45 0.2 mg ONETIME ONE Administration Lisinopril 10 mg 04/01/20 07:44 04/01/20 07:49 Prinivil PO 04/01/20 07:45 10 mg ONETIME ONE Administration Lorazepam 1 mg 04/01/20 07:36 04/01/20 07:45 Ativan PO 04/01/20 07:37 1 mg ONETIME ONE Administration Metoprolol Tartrate 50 mg 04/01/20 07:45 04/01/20 07:49 Lopressor PO 04/01/20 07:46 50 mg ONETIME ONE Administration - Re-Assessments/Exams Free Text/Narrative Re-Assessment/Exam: 04/01/20 07:36 We will give patient a dose of lorazepam as well as missed home BP medications. Will reassess for clinical improvement and anticipate discharge to finish dialysis if patient is clinically improving. Will defer advanced work-up at this time. 04/01/20 08:16 Trialed medications and waited 30 minutes with little clinical response. Patient still states that he feels very anxious. Feels mildly short of breath. Denies chest pain. Considering patient's extensive comorbidities will get labs including electrolytes and troponin. Will get chest x-ray and EKG as well. We will follow up results and disposition accordingly. 04/01/20 09:07 Patient's labs grossly unremarkable; will d/c back to finish dialysis Departure - Departure Time of Disposition: 09:08 Disposition: Home, Self-Care 01 Condition: Good Clinical Impression: Anxiety - Discharge Information Referrals: PCP,None [Primary Care Provider] - Additional Instructions: The following information is given to patients seen in the emergency department who are being discharged to home. This information is to outline your options for follow-up care. We provide all patients seen in our emergency department with a follow-up referral. The need for follow-up, as well as the timing and circumstances, are variable depending upon the specifics of your emergency department visit. If you don't have a primary care physician on staff, we will provide you with a referral. We always advise you to contact your personal physician following an emergency department visit to inform them of the circumstance of the visit and for follow-up with them and/or the need for any referrals to a consulting specialist. The emergency department will also refer you to a specialist when appropriate. This referral assures that you have the opportunity for follow-up care with a specialist. All of these measure are taken in an effort to provide you with optimal care, which includes your follow-up. Under all circumstances we always encourage you to contact your private physician who remains a resource for coordinating your care. When calling for follow-up care, please make the office aware that this follow-up is from your recent emergency room visit. If for any reason you are refused follow-up, please contact the [facility] Emergency Department at and asked to speak to the emergency department charge nurse. Please follow up with your primary care physician. If you do not have a primary care physician, see below: [facility] [address] [place] [phone] [facility] [address] [place], [place] [phone] [facility] [address] [place] [id number] Patient's labs all unremarkable. Will discharge Sepsis Event Note (ED) - Focused Exam Vital Signs: Vital Signs Temp Pulse Pulse Resp BP BP Pulse Ox 04/01/20 08:24 75 20 212/89 H 97 04/01/20 08:01 77 21 H 213/94 H 99 04/01/20 07:49 80 227/106 H 04/01/20 07:43 97.6 F 87 18 227/106 H 98 - My Orders Last 24 Hours: My Active Orders 04/01/20 08:15 EKG Documentation Completion [RC] STAT - Assessment/Plan Last 24 Hours: My Active Orders 04/01/20 08:15 EKG Documentation Completion [RC] STAT
[2020-04-01] MEDS ORDERED: amLODIPine 5 MG Tab PO ONE (07:44)
[2020-04-01] MEDS ORDERED: Lisinopril 10 MG Tab PO ONE (07:44)
[2020-04-01] MEDS ORDERED: cloNIDine 0.1 MG Tab PO ONE (07:44)
[2020-04-01] MEDS ORDERED: Metoprolol Tartrate 50 MG Tab PO ONE (07:45)
--- NOTE | 2020-04-01 08:49 | CR ---
INDICATION: Anxiety. Dialysis. TECHNIQUE: Chest 1 views COMPARISON: January 22, 2020. FINDINGS: Cardiovascular and mediastinum: Heart size and vasculature are normal in caliber and appearance. Lungs and pleural spaces: Lungs are clear. No sign of infiltrate or mass. No sign of pleural effusion. No pneumothorax. Bones and soft tissues: No significant findings. IMPRESSION: Negative chest. No sign of acute cardiopulmonary disease. Dictated by Sekou Reid MD @ Apr 01 2020 8:47AM Signed by Dr. Sekou Redi @ Apr 01 2020 8:48AM
[2020-04-01 08:59] LABS: BLOOD UREA NITROGEN,BUN 57 mg/dL (7.0-18.0); CARBON DIOXIDE,CO2 26.2 mmol/L (21.0-32.0); CHLORIDE,CL 100 mmol/L (98-107); GLUCOSE RANDOM 167 mg/dL (74-106); POTASSIUM,K 4.5 mmol/L (3.5-5.1); SODIUM,NA 140 mmol/L (136-148)
[2020-04-01 09:19] VITALS: BP 166/75; PULSE 77
== END 2020-04-01 09:17 | disposition home or self-care (01) ==
LOC: MW.ED 07:31
DX: F41.9 Anxiety disorder, unspecified (principal); I13.2 Hypertensive heart and chronic kidney disease with heart failure and with stage 5 chronic kidney disease, or end stage renal disease; I50.9 Heart failure, unspecified; N18.6 End stage renal disease; E10.22 Type 1 diabetes mellitus with diabetic chronic kidney disease; E66.9 Obesity, unspecified; Z68.27 Body mass index [BMI] 27.0-27.9, adult; Z79.82 Long term (current) use of aspirin; Z79.899 Other long term (current) drug therapy
CPT/HCPCS: 36415; 71045; 80053; 83605; 83735; 84484; 85025; 93005; 99284; A9270; 93010; 99283

== ENCOUNTER 2020-10-14 01:38 | Emergency (ER) | payer MEDICARE, MEDICAID ==
--- NOTE | 2020-10-14 02:00 | EDM.PDOC ---
ED HPI GENERAL MEDICAL PROBLEM - General Chief Complaint: Chest Pain Stated Complaint: CHEST PAIN Time Seen by Provider: 10/14/20 01:58 Source of Information: Reports: Patient History Limitations: Reports: No Limitations - History of Present Illness INITIAL COMMENTS - FREE TEXT/NARRATIVE: Patient is a 69-year-old male with a history of diabetes and end-stage renal diseasedialysis Wednesday presents today for shortness of breath. He states that this evening he had increased shortness of breath and was difficulty getting air in. He last had dialysis on Wednesday. He also reports some chest pain substernal does not radiate not made better or worse with anything. Denies overdrinking this week. He states that he still makes small amount of urine. He states that he has a few appointments coming up patient is a very poor historian cannot know what medications he takes or who his project development manager is. chest Pain Score (Numeric/FACES): 8 - Related Data Allergies Allergy/AdvReac Type Severity Reaction Status Date / Time No Known Allergies Allergy Verified 04/01/20 07:43 Home Meds: Home Meds FLUoxetine [PROzac] 10 mg PO BEDTIME 11/09/16 [History] Gabapentin [Neurontin] 200 mg PO BID 11/09/16 [History] LORazepam 0.5 mg PO DAILY PRN 11/09/16 [History] Metoprolol Tartrate [Lopressor] 50 mg PO BID 11/09/16 [History] Zolpidem [Ambien] 10 mg PO BEDTIME 11/09/16 [History] amLODIPine [Norvasc] 20 mg PO DAILY 11/09/16 [History] cloNIDine [Catapres] 0.2 mg PO BID PRN 11/09/16 [History] Aspirin [Halfprin] 81 mg PO BRK 01/08/17 [History] Insulin Aspart [Novolog] 4 unit SQ TIDAC 01/08/17 [History] atorvaSTATin Calcium [Atorvastatin Calcium] 20 mg PO BEDTIME 01/08/17 [History] Insulin Degludec [Tresiba] 40 unit SQ DAILY 09/14/18 [History] Lisinopril 10 mg PO DAILY 09/14/18 [History] PARoxetine [Paxil] 20 mg PO DAILY 09/14/18 [History] rOPINIRole [Requip] 2 mg PO DAILY 09/14/18 [History] Azithromycin 250 mg PO DAILY 5 Days #6 tablet 01/22/20 [Rx] Past Medical History - Past Health History Medical/Surgical History: Denies Medical/Surgical History HEENT History: Reports: Other (See Below) Other HEENT History: wears glasses Cardiovascular History: Reports: Heart Failure, Hypertension, Other (See Below) Other Cardiovascular History: transferred to [place] previously to cardiac issues. ACS Respiratory History: Reports: Intubation, Previous Gastrointestinal History: Reports: None Genitourinary History: Reports: Acute Renal Failure, Chronic Renal Insuffiency Other Genitourinary History: pt on dialysis Musculoskeletal History: Reports: Fracture Other Musculoskeletal History: hx of fx right foot Neurological History: Reports: None Psychiatric History: Reports: Anxiety, Depression Endocrine/Metabolic History: Reports: Diabetes, Type I, Obesity/BMI 30+ Hematologic History: Reports: None Immunologic History: Reports: None Oncologic (Cancer) History: Reports: None Dermatologic History: Reports: None - Infectious Disease History Infectious Disease History: Reports: Chicken Pox - Past Surgical History Head Surgeries/Procedures: Reports: None HEENT Surgical History: Reports: None Cardiovascular Surgical History: Reports: Other (See Below) Other Cardiovascular Surgeries/Procedures: Insertion of dialysis cathete and AV Shunt Respiratory Surgical History: Reports: Other (See Below) GI Surgical History: Reports: Appendectomy Male Surgical History: Reports: None Endocrine Surgical History: Reports: None Neurological Surgical History: Reports: None Musculoskeletal Surgical History: Reports: Shoulder Surgery Other Musculoskeletal Surgeries/Procedures:: right RTCR Oncologic Surgical History: Reports: None Social & Family History - Family History Family Medical History: No Pertinent Family History - Caffeine Use Caffeine Use: Reports: None Caffeine Use Comment: 1cup/day ED ROS GENERAL - Review of Systems Review Of Systems: See Below Constitutional: Reports: No Symptoms HEENT: Reports: No Symptoms Respiratory: Reports: Shortness of Breath Cardiovascular: Reports: No Symptoms Endocrine: Reports: No Symptoms GI/Abdominal: Reports: No Symptoms : Reports: No Symptoms Musculoskeletal: Reports: No Symptoms Skin: Reports: No Symptoms Neurological: Reports: No Symptoms Psychiatric: Reports: No Symptoms Hematologic/Lymphatic: Reports: No Symptoms Immunologic: Reports: No Symptoms ED EXAM, GENERAL - Physical Exam Exam: See Below Exam Limited By: No Limitations General Appearance: Alert, WD/WN, No Apparent Distress Eye Exam: Bilateral Eye: EOMI, PERRL Head: Atraumatic Respiratory/Chest: No Respiratory Distress, Lungs Clear, Normal Breath Sounds Cardiovascular: Normal Peripheral Pulses, Regular Rate, Rhythm GI/Abdominal: Normal Bowel Sounds, Soft, Non-Tender Neurological: Alert, Oriented #1 Interpretation EKG Date: 10/14/20 Time: 01:39 Rhythm: Other (sinus tach) Rate (Beats/Min): 105 ST-T: Depressed Course - Vital Signs Last Recorded V/S: Last Vital Signs Temp 97.8 F 10/14/20 01:45 Pulse 99 10/14/20 04:12 Resp 16 10/14/20 04:12 BP 206/89 H 10/14/20 04:12 Pulse Ox 98 10/14/20 04:12 - Orders/Labs/Meds Orders: Active Orders 24 hr Category Date Time Status Nitroglycerin [Nitrostat] Med 10/14/20 01:58 Active 0.4 mg SL Q5M PRN Nitroglycerin/D5W [Nitroglycerin 25 MG/D5W 250 ML] Med 10/14/20 03:30 Active 25 mg in 250 ml IV TITRATE Medication Orders Nitroglycerin/Dextrose (Nitroglycerin 25 Mg/D5w 250 Ml) 25 mg in 250 mls @ 3 mls/hr IV TITRATE MARITA; Protocol Last Admin: 10/14/20 03:31 Dose: 5 mcg/min, 3 mls/hr Documented by: CODY Nitroglycerin (Nitroglycerin 0.4 Mg Tab.Sl) 0.4 mg SL Q5M PRN PRN Reason: Chest Pain Last Admin: 10/14/20 02:18 Dose: 0.4 mg Documented by: Admin: 10/14/20 02:03 Dose: 0.4 mg Documented by: CODY Labs: Laboratory Tests 10/14/20 10/14/20 Range/Units 02:10 02:10 WBC 13.07 H (4.0-11.0) K/uL RBC 3.30 L (4.50-5.90) M/uL Hgb 9.5 L (13.0-17.0) g/dL Hct 27.9 L (38.0-50.0) % MCV 84.5 (80.0-98.0) fL MCH 28.8 (27.0-32.0) pg MCHC 34.1 (31.0-37.0) g/dL RDW Std Deviation 44.6 (28.0-62.0) fl RDW Coeff of Robert 15 (11.0-15.0) % Plt Count 168 (150-400) K/uL MPV 10.40 (7.40-12.00) fL Neut % (Auto) 79.1 (48.0-80.0) % Lymph % (Auto) 10.7 L (16.0-40.0) % [place] % (Auto) 8.5 (0.0-15.0) % Eos % (Auto) 1.5 (0.0-7.0) % Baso % (Auto) 0.2 (0.0-1.5) % Neut # (Auto) 10.3 H (1.4-5.7) K/uL Lymph # (Auto) 1.4 (0.6-2.4) K/uL [place] # (Auto) 1.1 H (0.0-0.8) K/uL Eos # (Auto) 0.2 (0.0-0.7) K/uL Baso # (Auto) 0.0 (0.0-0.1) K/uL Nucleated RBC % 0.0 /100WBC Nucleated RBCs # 0 K/uL Sodium 139 (136-148) mmol/L Potassium 5.3 H (3.5-5.1) mmol/L Chloride 99 (98-107) mmol/L Carbon Dioxide 28.2 (21.0-32.0) mmol/L BUN 81 H (7.0-18.0) mg/dL Creatinine 12.0 H (0.8-1.3) mg/dL Est Cr Clr Drug Dosing TNP Estimated GFR (MDRD) 4.2 ml/min Glucose 278 H (74-106) mg/dL Calcium 8.8 (8.5-10.1) mg/dL Phosphorus 3.3 (2.6-4.7) mg/dL Magnesium 2.0 (1.8-2.4) mg/dL Total Bilirubin 0.6 (0.2-1.0) mg/dL AST 7 L (15-37) IU/L ALT 13 L (14-63) IU/L Alkaline Phosphatase 107 (46-116) U/L Troponin I 0.113 H* (0.000-0.056) ng/mL Total Protein 6.4 (6.4-8.2) g/dL Albumin 3.5 (3.4-5.0) g/dL Globulin 2.9 (2.6-4.0) g/dL Albumin/Globulin Ratio 1.2 (0.9-1.6) Lipase 232 (73-393) U/L Meds: Medications Generic Name Dose Route Start Last Admin Trade Name Freq PRN Reason Stop Dose Admin Nitroglycerin/Dextrose 25 mg in 250 mls @ 3 mls/hr 10/14/20 03:30 10/14/20 03:31 Nitroglycerin 25 Mg/D5w 250 Ml IV 5 mcg/min TITRATE MARITA 3 mls/hr Administration Protocol 5 MCG/MIN Nitroglycerin 0.4 mg 10/14/20 01:58 10/14/20 02:18 Nitroglycerin 0.4 Mg Tab.Sl SL 0.4 mg Q5M PRN Administration Chest Pain Discontinued Medications Generic Name Dose Route Start Last Admin Trade Name Freq PRN Reason Stop Dose Admin Aspirin 325 mg 10/14/20 03:16 10/14/20 03:20 Aspirin 325 Mg Tab PO 10/14/20 03:17 325 mg ONETIME ONE Administration Hydralazine HCl 5 mg 10/14/20 02:41 10/14/20 02:54 Hydralazine 20 Mg/Ml Sdv IVPUSH 10/14/20 02:42 5 mg ONETIME ONE Administration - Re-Assessments/Exams Free Text/Narrative Re-Assessment/Exam: 10/14/20 03:19 He had a difficult time obtaining IV access for patient. We were able to get ultrasound-guided IV. We will now try to give a nitro drip as well. Patient troponins are elevated patient will require transfer however due to the current pandemic and bed shortness across the country trips or is difficult. I have already called to hospitals his main hospital in [place] and have any beds available we will continue to search for transfer for this patient. 10/14/20 04:17 We were able to call [facility] and they can accept patient patient will be transferred if we weather for flight. Patient will also be started on heparin drip. 10/14/20 04:27 Dr. Jennifer WALKER and [facility] cardiology from [facility] has assessed the patient Departure - Departure Time of Disposition: 04:24 Disposition: DC/Tfer to Acute Hospital 02 Condition: Good Clinical Impression: NSTEMI (non-ST elevated myocardial infarction) - Discharge Information Referrals: Reyes Castanon MD [Primary Care Provider] - Forms: ED Department Discharge Critical Care Note - Critical Care Note Total Time (mins): 75 Comments: Critical Care Procedure Note Authorized and Performed by: Dr. Limon Total critical care time: Approximately Due to a high probability of clinically significant, life threatening deterioration, the patient required my highest level of preparedness to intervene emergently and I personally spent this critical care time directly and personally managing the patient. This critical care time included obtaining a history; examining the patient; pulse oximetry; ordering and review of studies; arranging urgent treatment with development of a management plan; evaluation of patient's response to treatment; frequent reassessment; and, discussions with other providers. This critical care time was performed to assess and manage the high probability of imminent, life-threatening deterioration that could result in multi-organ failure. It was exclusive of separately billable procedures and treating other patients and teaching time. Sepsis Event Note (ED) - Focused Exam Vital Signs: Vital Signs Temp Pulse Resp BP BP Pulse Ox 10/14/20 04:12 99 16 206/89 H 98 10/14/20 03:36 101 H 16 217/93 H 100 10/14/20 02:18 198/104 H 10/14/20 02:03 226/112 H 10/14/20 01:45 97.8 F 106 H 18 226/112 H 92 L - My Orders Last 24 Hours: My Active Orders 10/14/20 01:58 Nitroglycerin [Nitrostat] 0.4 mg SL Q5M PRN 10/14/20 03:30 Nitroglycerin/D5W [Nitroglycerin 25 MG/D5W 250 ML] 25 mg in 250 ml IV TITRATE - Assessment/Plan Last 24 Hours: My Active Orders 10/14/20 01:58 Nitroglycerin [Nitrostat] 0.4 mg SL Q5M PRN 10/14/20 03:30 Nitroglycerin/D5W [Nitroglycerin 25 MG/D5W 250 ML] 25 mg in 250 ml IV TITRATE Plan: Patient six 9-year-old male with history of end-stage renal disease presents today for increasing shortness of breath. Patient sat 95% room air and lungs are clear on exam. He states that he is short of breath but his blood pressure is elevated greater than 200. Patient will be given some nitro and some p.o. blood pressure meds and reassess.
[2020-10-14] MEDS: Nitroglycerin 0.4 MG Tab.SL SL PRN ×2 (02:03→02:18)
[2020-10-14 02:38] LABS: BLOOD UREA NITROGEN,BUN 81 mg/dL (7.0-18.0); CARBON DIOXIDE,CO2 28.2 mmol/L (21.0-32.0); CHLORIDE,CL 99 mmol/L (98-107); GLUCOSE RANDOM 278 mg/dL (74-106); LIPASE 232 U/L (73-393); POTASSIUM,K 5.3 mmol/L (3.5-5.1); SODIUM,NA 139 mmol/L (136-148)
[2020-10-14] MEDS ORDERED: hydrALAZINE 20 MG/ML SDV IVPUSH ONE (02:41)
--- NOTE | 2020-10-14 03:02 | CR ---
INDICATION: [id number], dialysis patient TECHNIQUE: Portable upright AP view of the chest COMPARISON: AP chest radiograph 04/01/2020 FINDINGS: There is prominence of the pulmonary interstitial markings, suggesting mild edema. There is no pulmonary consolidation, sizable pleural effusion, or pneumothorax. There is stable mild enlargement of the cardiac silhouette. The visualized osseous structures are unremarkable. Vascular stent device is noted in the left axilla, similar to prior. IMPRESSION: Prominence of the pulmonary interstitial markings, suggesting mild edema. Stable cardiomegaly. Dictated by Anusha Macedo MD @ 10/14/2020 3:01:[address] Anusha Macedo @ Oct 14 2020 3:01AM
[2020-10-14] MEDS ORDERED: Aspirin 325 MG Tab PO ONE (03:16)
[2020-10-14] MEDS ORDERED: Nitroglycerin/D5W 25 MG/250 ML BOTTLE IV SCH (03:30)
[2020-10-14] MEDS ORDERED: Heparin Sodium 5,000 Units/ML Vial IVPUSH ONE (04:35)
[2020-10-14] MEDS ORDERED: Heparin Sodium/0.45% NaCl 500 ML IV SCH (04:45)
[2020-10-14 05:00] VITALS: PULSE 98
[2020-10-14 05:01] VITALS: BP 236/119
== END 2020-10-14 05:55 ==
LOC: MW.ED 01:38
DX: I21.4 Non-ST elevation (NSTEMI) myocardial infarction (principal); I13.2 Hypertensive heart and chronic kidney disease with heart failure and with stage 5 chronic kidney disease, or end stage renal disease; E10.22 Type 1 diabetes mellitus with diabetic chronic kidney disease; N18.6 End stage renal disease; I50.9 Heart failure, unspecified; N17.9 Acute kidney failure, unspecified; R00.0 Tachycardia, unspecified; E66.9 Obesity, unspecified; Z68.27 Body mass index [BMI] 27.0-27.9, adult; Z99.2 Dependence on renal dialysis; Z79.82 Long term (current) use of aspirin; Z79.4 Long term (current) use of insulin; Z79.899 Other long term (current) drug therapy
CPT/HCPCS: 36415; 71045; 80053; 83690; 83735; 84100; 84484; 85025; 85730; 93005; 96365; 96366; 96368; 96375; 99285; A9270; J0360; J1644; J3490; U0002

== ENCOUNTER 2020-11-27 10:31 | Emergency (ER) | payer MEDICARE, MEDICAID ==
[2020-11-27] MEDS ORDERED: LORazepam 2 MG/ML SDV IVPUSH ONE (11:28)
--- NOTE | 2020-11-27 11:41 | PCM.EKG ---
#1 Interpretation EKG Date: 11/27/20 Time: 11:16 Rhythm: NSR Rate (Beats/Min): 96 [place]: Normal P-Wave: Present QRS: Normal ST-T: Normal QT: Prolonged Comparison: No Change (10/14/20) EKG Interpretation Comments: Sinus Rhythm
--- NOTE | 2020-11-27 11:41 | EDM.PDOC ---
ED HPI GENERAL MEDICAL PROBLEM - General Chief Complaint: General Stated Complaint: confusion Time Seen by Provider: 11/27/20 10:44 - History of Present Illness INITIAL COMMENTS - FREE TEXT/NARRATIVE: CHIEF COMPLAINT(S): Altered mental status HISTORY OF PRESENT ILLNESS: This is a 70-year-old man with a past medical history of end-stage renal disease on hemodialysis, hypertension, anxiety who comes to the emergency department with a chief complaint of altered mental status. The patient is currently alert and oriented and appears anxious. He states that he feels anxious and denies any chest pain, shortness of breath, hea dache, nausea, vomiting. He states that he does not drink alcohol and has not taken any prescription medications. He states that he is anxious because Dr. Tuttle stopped his Ativan. He states that he does not know why he stopped his Ativan. He denies any other symptoms. Per the daughter who is at bedside the patient has been experiencing intermittent episodes of encephalopathy. She states that the physician stopped the Ativan or his benzos because he was not taking them as prescribed and was taking more than necessary. She states that his encephalopathy has worsened over the last week or so. She states that in dialysis she found tablets of Ambien on the ground is concerned that he may be taking extra. REVIEW OF SYSTEMS: Constitutional: Denies fever, chills. Eyes: Denies eye pain Ears, Nose, Mouth, & Throat: Denies earache Cardiovascular: Denies chest pain Respiratory: Denies shortness of breath Gastrointestinal: Denies Nausea, vomiting, diarrhea, hematochezia. Genitourinary: Denies hematuria Skin:Denies a rash MSK: Denies joint pain Neurological: Denies blurred vision Psychiatric: Denies depression PAST MEDICAL HISTORY: As per history of present illness and as reviewed below otherwise noncontributory. SURGICAL HISTORY: As per history of present illness and as reviewed below otherwise noncontributory. SOCIAL HISTORY: As per history of present illness and as reviewed below otherwise noncontributory. FAMILY HISTORY: As per history of present illness and as reviewed below otherwise noncontributory. EXAMINATION OF ORGAN SYSTEMS/BODY AREAS: Constitutional: Blood pressure was 218/97, heart rate 85, respiratory rate 17 with an oxygen saturation 95% on room air. Temperature 36.6 General: Middle-aged man who appears anxious trying to get off the stretcher. Psychiatric: Appears anxious but is cooperative. Does not appear to be responding to internal stimuli. Eyes: No scleral icterus or conjunctival erythema pupils were equal round and reactive to light. Extraocular movements intact. No vertical horizontal nystagmus. ENMT: Moist mucous membranes. No pharyngeal erythema Cardiovascular: Regular, rate, and rhythm. No gallops, murmurs, or rubs. Bilateral upper extremity pulses symmetric and intact. No peripheral edema. No JVD. Respiratory: Lungs clear to auscultation bilaterally. No wheezes, rales, or rhonchi. Gastrointestinal: Soft, non-tender, non-distended. Normoactive bowel sounds Genitourinary: No suprapubic tenderness Musculoskeletal: Normal range of motion. Skin: No lesions or abrasions. Neurological: Alert, GCS 15 strength and sensation grossly intact in upper and lower extremities bilaterally MEDICAL DECISION MAKING AND COURSE IN THE ED WITH INTERPRETATION/REVIEW OF DIAGNOSTIC STUDIES: This is a 70-year-old man with a past medical history of end-stage renal disease on hemodialysis, hypertension who presents to the emergency department with a chief complaint of encephalopathy who is alert and oriented x4 appears anxious but is redirectable. At this time in discussion with the daughter at bedside the patient has a history of benzodiazepine misuse and this is the reason that the patient is likely anxious and no longer has his benzodiazepines. On review of the prescription drug monitoring the patient has not had a prescription for approximately 1 month for benzodiazepines but does have a prescription for Ambien that was filled on November 19, 2020. This does coincide with the same amount of time that the patient's hallucinations and encephalopathy had began. Given that the daughter found Ambien on the ground I do suspect the possibility of Ambien misuse. However the patient is hypertensive therefore we will undergo a encephalopathic work-up. EKG was obtained which did not reveal any acute signs of ischemia however there was prolonged QT. Will obtain CBC, INR, CMP, lipase, TSH, serum drug screen, Covid screen. The patient does not urinate therefore we cannot obtain a urine drug screen. We will also obtain an ammonia level. Will obtain CT head without contrast to evaluate for any intracranial bleeding or other abnormality. Given the anxiety we will provide the patient with 2 mg of IV Ativan so that further work-up can be obtained. Given the patient's hypertension we will provide the patient with his home medications as he did not take them this morning. Laboratory: CBC reveals a normocytic anemia with a hemoglobin of 10.1 and hematocrit of 30. INR is normal. CMP reveals hypochloremia at 96, elevated BUN at 20 and a creatinine of 5, hyperglycemia at 134, [id number] glucose was 126 and hypomagnesemia at 1.6. TSH is normal at 3.73. Serum ammonia is 23. Serum lipase is 159. Serum drug screen is negative. Covid is negative. The radiological images were viewed by myself along with reading the report from the radiologist. CT head without contrast does not reveal any acute intracranial abnormality. On reevaluation the patient was sleeping comfortably in the stretcher and the daughter did find 2 additional tablets that fell onto the ground. At this time the patient's blood pressure had improved and he appeared calm. At this time we did call poison control and they recommended observation. At this time given that the patient is vitally stable and did have dialysis today I did contact Dr. Ashton for observation admission. He stated that he would come and evaluate the patient. While awaiting for evaluation by Dr. Ashton the patient improved clinically and has been observed here in the emergency department. The patient was alert and oriented x4, able to ambulate without any difficulty, and able to tolerate p.o. At this time I do believe that his symptoms are likely secondary to medication side effect versus medication abuse. I did discuss with him, his , and his daughter about discussion with his primary care physician about removing these medications as I do believe they cause more harm than good especially in this patient. All of them did express understanding and they are to return for any new or worsening symptoms. DISPOSITION: The patient was discharged home in stable condition. The patient will follow up with primary care physician in 3 to 5 days CONDITION: Fair PROCEDURES: Cardiac monitoring interpretation, pulse oximetry interpretation FINAL IMPRESSION(S)/DIAGNOSES: 1. Acute encephalopathy likely secondary to medication misuse 2. Hypertension Boo Figueroa M.D. - Related Data Allergies Allergy/AdvReac Type Severity Reaction Status Date / Time No Known Allergies Allergy Verified 11/27/20 10:55 Home Meds: Home Meds FLUoxetine [PROzac] 10 mg PO BEDTIME 11/09/16 [History] LORazepam 0.5 mg PO DAILY PRN 11/09/16 [History] Metoprolol Tartrate [Lopressor] 50 mg PO BID 11/09/16 [History] Zolpidem [Ambien] 10 mg PO BEDTIME 11/09/16 [History] amLODIPine [Norvasc] 20 mg PO DAILY 11/09/16 [History] cloNIDine [Catapres] 0.2 mg PO BID PRN 11/09/16 [History] Aspirin [Halfprin] 81 mg PO DAILY 01/08/17 [History] Insulin Aspart [Novolog] 0 unit SQ TIDAC 01/08/17 [History] atorvaSTATin Calcium [Atorvastatin Calcium] 20 mg PO BEDTIME 01/08/17 [History] Insulin Degludec [Tresiba] 40 unit SQ DAILY 09/14/18 [History] Lisinopril 10 mg PO DAILY 09/14/18 [History] PARoxetine [Paxil] 20 mg PO DAILY 09/14/18 [History] rOPINIRole [Requip] 2 mg PO DAILY 09/14/18 [History] Acetaminophen [Pain Relief] 325 mg PO Q4H PRN 11/27/20 [History] Biotin/FA/Vit C/Vit B Complex [Nephrocaps] 1 tab PO DAILY 11/27/20 [History] Calcium Acetate 2,001 mg PO TIDMEALS 11/27/20 [History] ClonazePAM [KlonoPIN] 0.5 mg PO TID PRN 11/27/20 [History] Darbepoetin Saleem in [place]ysorbat [Aranesp] 40 mcg IJ WEEKLY 11/27/20 [History] Gabapentin [Neurontin] 300 mg PO BEDTIME 11/27/20 [History] Losartan [Cozaar] 100 mg PO DAILY 11/27/20 [History] Sevelamer HCl [Renagel] 2,400 mg PO TIDMEALS 11/27/20 [History] carvediloL [Carvedilol] 25 mg PO BID 11/27/20 [History] Past Medical History - Past Health History Medical/Surgical History: Denies Medical/Surgical History HEENT History: Reports: Other (See Below) Other HEENT History: wears glasses Cardiovascular History: Reports: Heart Failure, Hypertension, Other (See Below) Other Cardiovascular History: transferred to [place] previously to cardiac issues. ACS Respiratory History: Reports: Intubation, Previous Gastrointestinal History: Reports: None Genitourinary History: Reports: Acute Renal Failure, Chronic Renal Insuffiency Other Genitourinary History: pt on dialysis Musculoskeletal History: Reports: Fracture Other Musculoskeletal History: hx of fx right foot Neurological History: Reports: None Psychiatric History: Reports: Anxiety, Depression Endocrine/Metabolic History: Reports: Diabetes, Type I, Obesity/BMI 30+ Hematologic History: Reports: None Immunologic History: Reports: None Oncologic (Cancer) History: Reports: None Dermatologic History: Reports: None - Infectious Disease History Infectious Disease History: Reports: Chicken Pox - Past Surgical History Head Surgeries/Procedures: Reports: None HEENT Surgical History: Reports: None Cardiovascular Surgical History: Reports: Other (See Below) Other Cardiovascular Surgeries/Procedures: Insertion of dialysis cathete and AV Shunt Respiratory Surgical History: Reports: Other (See Below) GI Surgical History: Reports: Appendectomy Male Surgical History: Reports: None Endocrine Surgical History: Reports: None Neurological Surgical History: Reports: None Musculoskeletal Surgical History: Reports: Shoulder Surgery Other Musculoskeletal Surgeries/Procedures:: right RTCR Oncologic Surgical History: Reports: None Social & Family History - Family History Family Medical History: No Pertinent Family History - Tobacco Use Tobacco Use Status *Q: Never Tobacco User - Caffeine Use Caffeine Use: Reports: None Caffeine Use Comment: 1cup/day - Recreational Drug Use Recreational Drug Use: No ED ROS GENERAL - Review of Systems Review Of Systems: See Below ED EXAM, GENERAL - Physical Exam Exam: See Below Course - Vital Signs Last Recorded V/S: Last Vital Signs Temp 36.6 C 11/27/20 10:53 Pulse 76 11/27/20 17:45 Resp 17 11/27/20 10:53 BP 188/88 H 11/27/20 17:45 Pulse Ox 96 11/27/20 17:45 - Orders/Labs/Meds Labs: Laboratory Tests 11/27/20 11/27/20 11/27/20 Range/Units 11:12 11:12 11:12 WBC 6.99 (4.0-11.0) K/uL RBC 3.35 L (4.50-5.90) M/uL Hgb 10.1 L (13.0-17.0) g/dL Hct 30.0 L (38.0-50.0) % MCV 89.6 (80.0-98.0) fL MCH 30.1 (27.0-32.0) pg MCHC 33.7 (31.0-37.0) g/dL RDW Std Deviation 48.9 (28.0-62.0) fl RDW Coeff of Robert 15 (11.0-15.0) % Plt Count 230 (150-400) K/uL MPV 10.70 (7.40-12.00) fL Neut % (Auto) 68.1 (48.0-80.0) % Lymph % (Auto) 13.0 L (16.0-40.0) % Deuel % (Auto) 12.4 (0.0-15.0) % Eos % (Auto) 5.6 (0.0-7.0) % Baso % (Auto) 0.9 (0.0-1.5) % Neut # (Auto) 4.8 (1.4-5.7) K/uL Lymph # (Auto) 0.9 (0.6-2.4) K/uL Deuel # (Auto) 0.9 H (0.0-0.8) K/uL Eos # (Auto) 0.4 (0.0-0.7) K/uL Baso # (Auto) 0.1 (0.0-0.1) K/uL Nucleated RBC % 0.0 /100WBC Nucleated RBCs # 0 K/uL INR 1.08 Sodium 138 (136-148) mmol/L Potassium 3.6 (3.5-5.1) mmol/L Chloride 96 L (98-107) mmol/L Carbon Dioxide 28.7 (21.0-32.0) mmol/L BUN 20 H (7.0-18.0) mg/dL Creatinine 5.0 H (0.8-1.3) mg/dL Est Cr Clr Drug Dosing 13.68 mL/min Estimated GFR (MDRD) 11.6 ml/min Glucose 134 H (74-106) mg/dL POC Glucose (70-99) mg/dL Lactic Acid (0.4-2.0) mmol/L Calcium 8.9 (8.5-10.1) mg/dL Magnesium 1.6 L (1.8-2.4) mg/dL Total Bilirubin 1.0 (0.2-1.0) mg/dL AST 17 (15-37) IU/L ALT 23 (14-63) IU/L Alkaline Phosphatase 108 (46-116) U/L Ammonia (19-54) ug/dL Creatine Kinase 168 (26-308) U/L Total Protein 7.6 (6.4-8.2) g/dL Albumin 3.9 (3.4-5.0) g/dL Globulin 3.7 (2.6-4.0) g/dL Albumin/Globulin Ratio 1.1 (0.9-1.6) Lipase (73-393) U/L TSH, Ultra Sensitive 3.73 (0.36-3.74) uIU/mL Salicylates (0-20) mg/dL Acetaminophen ug/mL Ethyl Alcohol <3 mg/dL SARS-CoV-2 RNA (SHASTA) (NEGATIVE) 11/27/20 11/27/20 11/27/20 Range/Units 11:12 11:23 12:48 WBC (4.0-11.0) K/uL RBC (4.50-5.90) M/uL Hgb (13.0-17.0) g/dL Hct (38.0-50.0) % MCV (80.0-98.0) fL MCH (27.0-32.0) pg MCHC (31.0-37.0) g/dL RDW Std Deviation (28.0-62.0) fl RDW Coeff of Robert (11.0-15.0) % Plt Count (150-400) K/uL MPV (7.40-12.00) fL Neut % (Auto) (48.0-80.0) % Lymph % (Auto) (16.0-40.0) % Deuel % (Auto) (0.0-15.0) % Eos % (Auto) (0.0-7.0) % Baso % (Auto) (0.0-1.5) % Neut # (Auto) (1.4-5.7) K/uL Lymph # (Auto) (0.6-2.4) K/uL Deuel # (Auto) (0.0-0.8) K/uL Eos # (Auto) (0.0-0.7) K/uL Baso # (Auto) (0.0-0.1) K/uL Nucleated RBC % /100WBC Nucleated RBCs # K/uL INR Sodium (136-148) mmol/L Potassium (3.5-5.1) mmol/L Chloride (98-107) mmol/L Carbon Dioxide (21.0-32.0) mmol/L BUN (7.0-18.0) mg/dL Creatinine (0.8-1.3) mg/dL Est Cr Clr Drug Dosing mL/min Estimated GFR (MDRD) ml/min Glucose (74-106) mg/dL POC Glucose 126 H (70-99) mg/dL Lactic Acid 1.2 (0.4-2.0) mmol/L Calcium (8.5-10.1) mg/dL Magnesium (1.8-2.4) mg/dL Total Bilirubin (0.2-1.0) mg/dL AST (15-37) IU/L ALT (14-63) IU/L Alkaline Phosphatase (46-116) U/L Ammonia (19-54) ug/dL Creatine Kinase (26-308) U/L Total Protein (6.4-8.2) g/dL Albumin (3.4-5.0) g/dL Globulin (2.6-4.0) g/dL Albumin/Globulin Ratio (0.9-1.6) Lipase 159 (73-393) U/L TSH, Ultra Sensitive (0.36-3.74) uIU/mL Salicylates <0.2 (0-20) mg/dL Acetaminophen <2.0 ug/mL Ethyl Alcohol mg/dL SARS-CoV-2 RNA (SHASTA) (NEGATIVE) 11/27/20 11/27/20 Range/Units 12:48 14:00 WBC (4.0-11.0) K/uL RBC (4.50-5.90) M/uL Hgb (13.0-17.0) g/dL Hct (38.0-50.0) % MCV (80.0-98.0) fL MCH (27.0-32.0) pg MCHC (31.0-37.0) g/dL RDW Std Deviation (28.0-62.0) fl RDW Coeff of Robert (11.0-15.0) % Plt Count (150-400) K/uL MPV (7.40-12.00) fL Neut % (Auto) (48.0-80.0) % Lymph % (Auto) (16.0-40.0) % Deuel % (Auto) (0.0-15.0) % Eos % (Auto) (0.0-7.0) % Baso % (Auto) (0.0-1.5) % Neut # (Auto) (1.4-5.7) K/uL Lymph # (Auto) (0.6-2.4) K/uL Deuel # (Auto) (0.0-0.8) K/uL Eos # (Auto) (0.0-0.7) K/uL Baso # (Auto) (0.0-0.1) K/uL Nucleated RBC % /100WBC Nucleated RBCs # K/uL INR Sodium (136-148) mmol/L Potassium (3.5-5.1) mmol/L Chloride (98-107) mmol/L Carbon Dioxide (21.0-32.0) mmol/L BUN (7.0-18.0) mg/dL Creatinine (0.8-1.3) mg/dL Est Cr Clr Drug Dosing mL/min Estimated GFR (MDRD) ml/min Glucose (74-106) mg/dL POC Glucose (70-99) mg/dL Lactic Acid (0.4-2.0) mmol/L Calcium (8.5-10.1) mg/dL Magnesium (1.8-2.4) mg/dL Total Bilirubin (0.2-1.0) mg/dL AST (15-37) IU/L ALT (14-63) IU/L Alkaline Phosphatase (46-116) U/L Ammonia 23 (19-54) ug/dL Creatine Kinase (26-308) U/L Total Protein (6.4-8.2) g/dL Albumin (3.4-5.0) g/dL Globulin (2.6-4.0) g/dL Albumin/Globulin Ratio (0.9-1.6) Lipase (73-393) U/L TSH, Ultra Sensitive (0.36-3.74) uIU/mL Salicylates (0-20) mg/dL Acetaminophen ug/mL Ethyl Alcohol mg/dL SARS-CoV-2 RNA (SHASTA) NEGATIVE (NEGATIVE) Meds: Medications Discontinued Medications Generic Name Dose Route Start Last Admin Trade Name Freq PRN Reason Stop Dose Admin Carvedilol 25 mg 11/27/20 12:15 11/27/20 12:32 Carvedilol 25 Mg Tab PO 11/27/20 12:16 25 mg ONETIME ONE Administration Clonidine HCl 0.1 mg 11/27/20 11:55 11/27/20 12:32 Clonidine 0.1 Mg Tab PO 11/27/20 11:56 0.1 mg ONETIME ONE Administration Lorazepam 2 mg 11/27/20 11:28 11/27/20 11:48 Lorazepam 2 Mg/Ml Sdv IVPUSH 11/27/20 11:29 2 mg ONETIME ONE Administration Lorazepam 2 mg 11/27/20 12:22 11/27/20 12:58 Lorazepam 2 Mg/Ml Sdv IVPUSH 11/27/20 12:23 Not Given ONETIME ONE Losartan Potassium 100 mg 11/27/20 12:15 11/27/20 12:33 Losartan 50 Mg Tab PO 11/27/20 12:16 100 mg ONETIME ONE Administration Nitroglycerin 0.4 mg 11/27/20 14:09 11/27/20 15:18 Nitroglycerin 0.4 Mg Tab.Sl SL 11/27/20 14:10 Not Given ONETIME ONE Departure - Departure Time of Disposition: 16:34 Disposition: Home, Self-Care 01 Condition: Fair Clinical Impression: Champ accidental overdose - Discharge Information *PRESCRIPTION DRUG MONITORING PROGRAM REVIEWED*: No *COPY OF PRESCRIPTION DRUG MONITORING REPORT IN PATIENT MARY: No Instructions: Accidental Drug Poisoning, Adult Referrals: Reyes Castanon MD [Primary Care Provider] - Forms: ED Department Discharge Additional Instructions: You were evaluated today on an emergent basis. At this time all of your work-up was negative. Given the concern of your family and the dialysis center we did evaluate you for altered mental status. I do believe your altered mentation is due to the medications that were prescribed to you. I only recommend that you take the medications as prescribed and I recommend that you get rid of all medication. TAKE: Aspirin Atorvastatin Calcium Acetate Carvedilol Losartan Nephrocaps Novolog Renagel Ropinirole Tresiba USE WITH CAUTION (RECOMMEND DISCUSSING THE NEED FOR THESE MEDICATIONS) Gabapentin Clonidine (as needed) STOP TAKING: Champ Clonazepam Orphedrine Please make an appointment with your primary care physician in 1 to 3 days to discuss these medications. [facility] - Primary [facility] [address] [place] [address] [facility] [address] [place] [address] The patient is informed of any results of their evaluation and diagnostic workup and all questions are answered. They are given discharge instructions and return precautions. The patient is stable for discharge. The patient states they understand and agree with the plan and that they will return if their symptoms get worse or if they have any new concerns. The following information is given to patients seen in the emergency department who are being discharged to home. This information is to outline your options for follow-up care. We provide all patients seen in our emergency department with a follow-up referral. The need for follow-up, as well as the timing and circumstances, are variable depending upon the specifics of your emergency department visit. If you don't have a primary care physician on staff, we will provide you with a referral. We always advise you to contact your personal physician following an emergency department visit to inform them of the circumstance of the visit and for follow-up with them and/or the need for any referrals to a consulting specialist. The emergency department will also refer you to a specialist when appropriate. This referral assures that you have the opportunity for follow-up care with a sp ecialist. All of these measure are taken in an effort to provide you with optimal care, which includes your follow-up. Under all circumstances we always encourage you to contact your private physicia n who remains a resource for coordinating your care. When calling for follow-up care, please make the office aware that this follow-up is from your recent emergency room visit. If for any reason you are refused follow-up, please contact the [facility] Department at and asked to speak to the emergency department charge nurse. Sepsis Event Note (ED) - Evaluation Sepsis Screening Result: No Definite Risk
[2020-11-27 11:53] LABS: BLOOD UREA NITROGEN,BUN 20 mg/dL (7.0-18.0); CARBON DIOXIDE,CO2 28.7 mmol/L (21.0-32.0); CHLORIDE,CL 96 mmol/L (98-107); GLUCOSE RANDOM 134 mg/dL (74-106); POTASSIUM,K 3.6 mmol/L (3.5-5.1); SODIUM,NA 138 mmol/L (136-148)
[2020-11-27] MEDS ORDERED: Carvedilol 25 MG Tab PO ONE ×2 (11:54→12:15)
[2020-11-27] MEDS ORDERED: Losartan 50 MG Tab PO ONE ×2 (11:54→12:15)
[2020-11-27] MEDS ORDERED: cloNIDine 0.1 MG Tab PO ONE (11:55)
[2020-11-27] MEDS: LORazepam 2 MG/ML SDV IVPUSH ONE ×2 (12:33→12:58)
[2020-11-27 13:33] LABS: ACETAMINOPHEN <2.0 ug/mL; LIPASE 159 U/L (73-393)
--- NOTE | 2020-11-27 14:06 | CT ---
INDICATION: Confusion. COMPARISON: CT head 03/27/2019. TECHNIQUE: CT of the head without IV contrast. Coronal and sagittal reconstructions are provided. FINDINGS: No intracranial hemorrhage, mass effect, or evidence of acute infarct. No midline shift. No abnormal extra-axial fluid collections. Normal caliber ventricular system. Tiny parenchymal calcification in the right parietal lobe. Orbits and extraocular muscles are symmetric. Mild mucosal thickening in the inferior maxillary sinuses bilaterally. The paranasal sinuses and mastoid air cells are otherwise clear. No acute fracture identified. Stable tiny osseous density overlying the nasal bones. Soft tissues are unremarkable. IMPRESSION: : No acute intracranial findings. Please note that all CT scans at this facility use dose modulation, iterative reconstruction, and/or weight-based dosing when appropriate to reduce radiation dose to as low as reasonably achievable. Dictated by Carole Domingo MD @ 11/27/2020 2:05:15 PM (Electronically Signed)
[2020-11-27] MEDS ORDERED: Nitroglycerin 0.4 MG Tab.SL SL ONE (14:09)
[2020-11-27 18:00] VITALS: BP 188/88; PULSE 76
== END 2020-11-27 17:51 | disposition home or self-care (01) ==
LOC: MW.ED 10:31
DX: T42.6X2A Poisoning by other antiepileptic and sedative-hypnotic drugs, intentional self-harm, initial encounter (principal); G93.40 Encephalopathy, unspecified; I13.0 Hypertensive heart and chronic kidney disease with heart failure and stage 1 through stage 4 chronic kidney disease, or unspecified chronic kidney disease; E10.22 Type 1 diabetes mellitus with diabetic chronic kidney disease; N18.9 Chronic kidney disease, unspecified; I50.9 Heart failure, unspecified; E66.9 Obesity, unspecified; Z68.29 Body mass index [BMI] 29.0-29.9, adult; Z79.82 Long term (current) use of aspirin; Z79.4 Long term (current) use of insulin; Z79.899 Other long term (current) drug therapy; Z20.822 Contact with and (suspected) exposure to COVID-19
CPT/HCPCS: 36415; 70450; 80053; 80143; 80179; 80307; 82140; 82550; 82947; 83605; 83690; 83735; 84443; 85025; 85610; 93005; 96374; 99285; A9270; J2060; U0002

== ENCOUNTER 2020-11-29 07:07 | Emergency (ER) | payer MEDICARE, MEDICAID ==
--- NOTE | 2020-11-29 07:36 | EDM.PDOC ---
ED HPI GENERAL MEDICAL PROBLEM - General Chief Complaint: General Stated Complaint: ANXIETY/SOB Time Seen by Provider: 11/29/20 07:24 - History of Present Illness INITIAL COMMENTS - FREE TEXT/NARRATIVE: CHIEF COMPLAINT(S): Anxiety HISTORY OF PRESENT ILLNESS: This is a 70-year-old man and with a past medical history of end-stage renal disease on hemodialysis, hypertension, anxiety, and benzodiazepine misuse who comes to the emergency department with a chief complaint of anxiety. Patient states that he is feeling anxious and that he often feels anxious. He denies any chest pain but states that he does feel mildly short of breath. States that he has anxiety before his dialysis session and he has had increased anxiety secondary to his medications being limited. He denies any lower extreme edema, recent travel, recent surgery, prior history of DVT or PE. He denies any other symptoms. REVIEW OF SYSTEMS: Constitutional: Denies fever, chills. Eyes: Denies eye pain Ears, Nose, Mouth, & Throat: Denies earache Cardiovascular: Denies chest pain Respiratory: Positive for mild shortness of breath. Gastrointestinal: Denies Nausea, vomiting, diarrhea, hematochezia. Genitourinary: Denies hematuria Skin:Denies a rash MSK: Denies joint pain Neurological: Denies blurred vision Psychiatric: Positive for anxiety. Denies depression PAST MEDICAL HISTORY: As per history of present illness and as reviewed below otherwise noncontributory. SURGICAL HISTORY: As per history of present illness and as reviewed below otherwise noncontributory. SOCIAL HISTORY: As per history of present illness and as reviewed below othe rwise noncontributory. FAMILY HISTORY: As per history of present illness and as reviewed below otherwise noncontributory. EXAMINATION OF ORGAN SYSTEMS/BODY AREAS: Constitutional: Blood pressure was 215/81, heart rate 87, respiratory rate 20 with an oxygen saturation 98% on room air. Temperature 35.5 General: Well-appearing man who is in no acute distress Psychiatric: Appropriate mood and affect. Does not appear to be anxious at all. Cooperative. Eyes: No scleral icterus or conjunctival erythema ENMT: Moist mucous membranes. No pharyngeal erythema Cardiovascular: Regular, rate, and rhythm. No gallops, murmurs, or rubs. Bilateral upper extremity pulses symmetric and intact. No peripheral edema. No JVD. Respiratory: Lungs clear to auscultation bilaterally. No wheezes, rales, or r honchi. Gastrointestinal: Soft, non-tender, non-distended. Normoactive bowel sounds Genitourinary: No suprapubic tenderness Musculoskeletal: Normal range of motion. Skin: No lesions or abrasions. Neurological: Alert, GCS 15 MEDICAL DECISION MAKING AND COURSE IN THE ED WITH INTERPRETATION/REVIEW OF DIAGNOSTIC STUDIES: This is a 70-year-old man with a past medical history of end-stage renal disease on hemodialysis, hypertension, anxiety and benzodiazepine misuse who was recently evaluated by myself after Ambien misuse for encephalopathy who comes to the emergency department with anxiety prior to his hemodialysis appointment. I did discuss with the patient at this time given his benzodiazepine misuse and given that he does have dialysis 3 times a week I will not be giving him any benzodiazepines here in the emergency department. I did discuss outpatient treatment with [place] services to discuss other options such as SSRIs, breathing exercises or other modalities given his history with benzodiazepine misuse. At this time the patient is hypertensive however I do believe the patient requires hemodialysis. At this time the patient was amenable to returning to hemodialysis to receive his hemodialysis session today. Immediately after the session he is to follow-up with [facility] for further management. He was amenable discharge and had no further questions DISPOSITION: The patient was discharged home in stable condition. The patient will follow up with [facility] today CONDITION: Good PROCEDURES: None FINAL IMPRESSION(S)/DIAGNOSES: 1. Acute on chronic anxiety Boo Figueroa M.D. chest Pain Score (Numeric/FACES): 4 - Related Data Allergies Allergy/AdvReac Type Severity Reaction Status Date / Time No Known Allergies Allergy Verified 11/29/20 07:27 Home Meds: Home Meds FLUoxetine [PROzac] 10 mg PO BEDTIME 11/09/16 [History] LORazepam 0.5 mg PO DAILY PRN 11/09/16 [History] Metoprolol Tartrate [Lopressor] 50 mg PO BID 11/09/16 [History] Zolpidem [Ambien] 10 mg PO BEDTIME 11/09/16 [History] amLODIPine [Norvasc] 20 mg PO DAILY 11/09/16 [History] cloNIDine [Catapres] 0.2 mg PO BID PRN 11/09/16 [History] Aspirin [Halfprin] 81 mg PO DAILY 01/08/17 [History] Insulin Aspart [Novolog] 0 unit SQ TIDAC 01/08/17 [History] atorvaSTATin Calcium [Atorvastatin Calcium] 20 mg PO BEDTIME 01/08/17 [History] Insulin Degludec [Tresiba] 40 unit SQ DAILY 09/14/18 [History] Lisinopril 10 mg PO DAILY 09/14/18 [History] PARoxetine [Paxil] 20 mg PO DAILY 09/14/18 [History] rOPINIRole [Requip] 2 mg PO DAILY 09/14/18 [History] Acetaminophen [Pain Relief] 325 mg PO Q4H PRN 11/27/20 [History] Biotin/FA/Vit C/Vit B Complex [Nephrocaps] 1 tab PO DAILY 11/27/20 [History] Calcium Acetate 2,001 mg PO TIDMEALS 11/27/20 [History] ClonazePAM [KlonoPIN] 0.5 mg PO TID PRN 11/27/20 [History] Darbepoetin Saleem in [place]ysorbat [Aranesp] 40 mcg IJ WEEKLY 11/27/20 [History] Gabapentin [Neurontin] 300 mg PO BEDTIME 11/27/20 [History] Losartan [Cozaar] 100 mg PO DAILY 11/27/20 [History] Sevelamer HCl [Renagel] 2,400 mg PO TIDMEALS 11/27/20 [History] carvediloL [Carvedilol] 25 mg PO BID 11/27/20 [History] Past Medical History - Past Health History Medical/Surgical History: Denies Medical/Surgical History HEENT History: Reports: Other (See Below) Other HEENT History: wears glasses Cardiovascular History: Reports: Heart Failure, Hypertension, Other (See Below) Other Cardiovascular History: transferred to [place] previously to cardiac issues. ACS Respiratory History: Reports: Intubation, Previous Gastrointestinal History: Reports: None Genitourinary History: Reports: Acute Renal Failure, Chronic Renal Insuffiency Other Genitourinary History: pt on dialysis Musculoskeletal History: Reports: Fracture Other Musculoskeletal History: hx of fx right foot Neurological History: Reports: None Psychiatric History: Reports: Anxiety, Depression Endocrine/Metabolic History: Reports: Diabetes, Type I, Obesity/BMI 30+ Hematologic History: Reports: None Immunologic History: Reports: None Oncologic (Cancer) History: Reports: None Dermatologic History: Reports: None - Infectious Disease History Infectious Disease History: Reports: Chicken Pox - Past Surgical History Head Surgeries/Procedures: Reports: None HEENT Surgical History: Reports: None Cardiovascular Surgical History: Reports: Other (See Below) Other Cardiovascular Surgeries/Procedures: Insertion of dialysis cathete and AV Shunt Respiratory Surgical History: Reports: Other (See Below) GI Surgical History: Reports: Appendectomy Male Surgical History: Reports: None Endocrine Surgical History: Reports: None Neurological Surgical History: Reports: None Musculoskeletal Surgical History: Reports: Shoulder Surgery Other Musculoskeletal Surgeries/Procedures:: right RTCR Oncologic Surgical History: Reports: None Social & Family History - Family History Family Medical History: No Pertinent Family History - Tobacco Use Tobacco Use Status *Q: Never Tobacco User - Caffeine Use Caffeine Use: Reports: Coffee Caffeine Use Comment: 1cup/day - Recreational Drug Use Recreational Drug Use: No ED ROS GENERAL - Review of Systems Review Of Systems: See Below ED EXAM, GENERAL - Physical Exam Exam: See Below Course - Vital Signs Last Recorded V/S: Last Vital Signs Temp 35.5 C L 11/29/20 07:23 Pulse 80 11/29/20 07:49 Resp 24 H 11/29/20 07:49 BP 219/97 H 11/29/20 07:49 Pulse Ox 99 11/29/20 07:49 Departure - Departure Time of Disposition: 07:40 Disposition: Home, Self-Care 01 Condition: Fair Clinical Impression: Anxiety - Discharge Information *PRESCRIPTION DRUG MONITORING PROGRAM REVIEWED*: No *COPY OF PRESCRIPTION DRUG MONITORING REPORT IN PATIENT MARY: No Instructions: Managing Anxiety, Adult Referrals: Reyes Castanon MD [Primary Care Provider] - Forms: ED Department Discharge Additional Instructions: Mr. Jj you were evaluated today on an emergent basis. As discussed given your history with lorazepam, clonazepam, and Ambien misuse I do not believe administering these medications to you will benefit you. I do understand that you have anxiety and panic attacks however I do recommend that you follow-up with [facility] to discuss other treatment options. Treatment options include other medications such as SSRIs and therapy. Please take your home medications as prescribed and you can follow-up with [facility] today and ask for the crisis response unit. Please return for any new or worsening symptoms. [facility] [phone] The patient is informed of any results of their evaluation and diagnostic workup and all questions are answered. They are given discharge instructions and return precautions. The patient is stable for discharge. The patient states they understand and agree with the plan and that they will return if their symptoms get worse or if they have any new concerns. The following information is given to patients seen in the emergency department who are being discharged to home. This information is to outline your options for follow-up care. We provide all patients seen in our emergency department with a follow-up referral. The need for follow-up, as well as the timing and circumstances, are variable depending upon the specifics of your emergency department visit. If you don't have a primary care physician on staff, we will provide you with a referral. We always advise you to contact your personal physician following an emergency department visit to inform them of the circumstance of the visit and for follow-up with them and/or the need for any referrals to a consulting specialist. The emergency department will also refer you to a specialist when appropriate. This referral assures that you have the opportunity for follow-up care with a specialist. All of these measure are taken in an effort to provide you with optimal care, which includes your follow-up. Under all circumstances we always encourage you to contact your private physician who remains a resource for coordinating your care. When calling for follow-up care, please make the office aware that this follow-up is from your recent emergency room visit. If for any reason you are refused follow-up, please contact the [facility] Emergency Department at and asked to speak to the emergency department charge nurse. Sepsis Event Note (ED) - Evaluation Sepsis Screening Result: No Definite Risk - Focused Exam Vital Signs: Vital Signs Temp Pulse Resp BP Pulse Ox 11/29/20 07:49 80 24 H 219/97 H 99 11/29/20 07:23 35.5 C L 87 26 H 215/81 H 98
[2020-11-29 07:54] VITALS: BP 219/97; PULSE 80
== END 2020-11-29 07:50 | disposition home or self-care (01) ==
LOC: MW.ED 07:07
DX: F41.9 Anxiety disorder, unspecified (principal); E10.22 Type 1 diabetes mellitus with diabetic chronic kidney disease; I13.0 Hypertensive heart and chronic kidney disease with heart failure and stage 1 through stage 4 chronic kidney disease, or unspecified chronic kidney disease; N18.9 Chronic kidney disease, unspecified; I50.9 Heart failure, unspecified; E66.9 Obesity, unspecified; Z99.2 Dependence on renal dialysis; Z68.29 Body mass index [BMI] 29.0-29.9, adult
CPT/HCPCS: 99283

== ENCOUNTER 2021-02-12 09:22 | Emergency (ER) | payer MEDICARE, MEDICAID ==
--- NOTE | 2021-02-12 10:09 | EDM.PDOC ---
<Stacie Vasquez - Last Filed: 02/12/21 10:12> ED HPI GENERAL MEDICAL PROBLEM - General Chief Complaint: General Stated Complaint: SOB FELL YESTERDAY Time Seen by Provider: 02/12/21 09:28 - History of Present Illness INITIAL COMMENTS - FREE TEXT/NARRATIVE: 70-year-old male with a history of ESRD on dialysis, hypertension, anxiety on benzodiazepines presents to the ER with complaints of increased anxiety after his dialysis session this morning. Contacted dialysis unit nurse who stated patient had regular amount of fluid taken off. Patient denies chest pain, shortness of breath, palpitations, leg or calf pain. Denies recent travel, surgery, history of DVT or PE or lower extremity pain or swelling. - Related Data Allergies Allergy/AdvReac Type Severity Reaction Status Date / Time No Known Allergies Allergy Verified 02/12/21 09:32 Home Meds: Home Meds FLUoxetine [PROzac] 10 mg PO BEDTIME 11/09/16 [History] LORazepam 0.5 mg PO DAILY PRN 11/09/16 [History] amLODIPine [Norvasc] 20 mg PO DAILY 11/09/16 [History] cloNIDine [Catapres] 0.2 mg PO BID PRN 11/09/16 [History] Aspirin [Halfprin] 81 mg PO DAILY 01/08/17 [History] Insulin Aspart [Novolog] 0 unit SQ TIDAC 01/08/17 [History] atorvaSTATin Calcium [Atorvastatin Calcium] 20 mg PO BEDTIME 01/08/17 [History] Insulin Degludec [Tresiba] 40 unit SQ DAILY 09/14/18 [History] rOPINIRole [Requip] 2 mg PO DAILY 09/14/18 [History] Acetaminophen [Pain Relief] 325 mg PO Q4H PRN 11/27/20 [History] Biotin/FA/Vit C/Vit B Complex [Nephrocaps] 1 tab PO DAILY 11/27/20 [History] Calcium Acetate 2,001 mg PO TIDMEALS 11/27/20 [History] Gabapentin [Neurontin] 300 mg PO BEDTIME 11/27/20 [History] Sevelamer HCl [Renagel] 2,400 mg PO TIDMEALS 11/27/20 [History] carvediloL [Carvedilol] 25 mg PO BID 11/27/20 [History] FLUoxetine [PROzac] 10 mg PO DAILY 02/12/21 [History] hydrOXYzine HCL [Atarax] 25 mg PO Q8H PRN #30 tab 02/12/21 [Rx] Past Medical History - Past Health History Medical/Surgical History: Denies Medical/Surgical History HEENT History: Reports: Other (See Below) Other HEENT History: wears glasses Cardiovascular History: Reports: Heart Failure, Hypertension, Other (See Below) Other Cardiovascular History: transferred to [place] previously to cardiac issues. ACS Respiratory History: Reports: Intubation, Previous Gastrointestinal History: Reports: None Genitourinary History: Reports: Acute Renal Failure, Chronic Renal Insuffiency Other Genitourinary History: pt on dialysis Musculoskeletal History: Reports: Fracture Other Musculoskeletal History: hx of fx right foot Neurological History: Reports: None Psychiatric History: Reports: Anxiety, Depression Endocrine/Metabolic History: Reports: Diabetes, Type I, Obesity/BMI 30+ Hematologic History: Reports: None Immunologic History: Reports: None Oncologic (Cancer) History: Reports: None Dermatologic History: Reports: None - Infectious Disease History Infectious Disease History: Reports: Chicken Pox - Past Surgical History Head Surgeries/Procedures: Reports: None HEENT Surgical History: Reports: None Cardiovascular Surgical History: Reports: Other (See Below) Other Cardiovascular Surgeries/Procedures: Insertion of dialysis cathete and AV Shunt Respiratory Surgical History: Reports: Other (See Below) GI Surgical History: Reports: Appendectomy Male Surgical History: Reports: None Endocrine Surgical History: Reports: None Neurological Surgical History: Reports: None Musculoskeletal Surgical History: Reports: Shoulder Surgery Other Musculoskeletal Surgeries/Procedures:: right RTCR Oncologic Surgical History: Reports: None Social & Family History - Family History Family Medical History: No Pertinent Family History - Tobacco Use Tobacco Use Status *Q: Never Tobacco User - Caffeine Use Caffeine Use: Reports: Coffee Caffeine Use Comment: 1cup/day - Recreational Drug Use Recreational Drug Use: No ED ROS GENERAL - Review of Systems Review Of Systems: Comprehensive ROS is negative, except as noted in HPI. ED EXAM, GENERAL - Physical Exam Exam: See Below Exam Limited By: No Limitations General Appearance: Alert, No Apparent Distress Eye Exam: Bilateral Eye: Normal Inspection Nose: Normal Inspection, Normal Mucosa Throat/Mouth: Normal Inspection Head: Atraumatic, Normocephalic Neck: Normal Inspection, Supple Respiratory/Chest: No Respiratory Distress, Lungs Clear, Decreased Breath Sounds Cardiovascular: Normal Peripheral Pulses, Regular Rate, Rhythm Peripheral Pulses: 2+: Dorsalis Pedis (L), Dorsalis Pedis (R) GI/Abdominal: Normal Bowel Sounds, Soft, Non-Tender Back Exam: Normal Inspection Extremities: Normal Inspection, No Pedal Edema. No: Tao's Sign, Leg Pain Neurological: Alert, Oriented, Normal Cognition Skin Exam: Warm, Dry, Intact Departure - Departure Disposition: Home, Self-Care 01 Clinical Impression: Hypertension, Renal failure, Anxiety attack Chronic renal disease Qualifiers: Chronic kidney disease stage: on chronic dialysis Qualified Code(s): N18.6 - End stage renal disease - Discharge Information Instructions: Panic Attack, [id number], How to Take Your Blood Pressure, [id number], Hypertension, Adult, [id number] Referrals: Aster Leal DO [Primary Care Provider] - Forms: ED Department Discharge Additional Instructions: A prescription was sent to [facility]. Have your blood pressure rechecked and followed in your doctor needs to add a medicine or change her dosages if it remains elevated. [facility] - Primary [facility] [address] [place] [address] [place] [address] The following information is given to patients seen in the emergency department who are being discharged to home. This information is to outline your options for follow-up care. We provide all patients seen in our emergency department with a follow-up referral. The need for follow-up, as well as the timing and circumstances, are variable depending upon the specifics of your emergency department visit. If you don't have a primary care physician on staff, we will provide you with a referral. We always advise you to contact your personal physician following an emergency department visit to inform them of the circumstance of the visit and for follow-up with them and/or the need for any referrals to a consulting specialist. The emergency department will also refer you to a specialist when appropriate. This referral assures that you have the opportunity for follow-up care with a specialist. All of these measure are taken in an effort to provide you with optimal care, which includes your follow-up. Under all circumstances we always encourage you to contact your private physician who remains a resource for coordinating your care. When calling for follow-up care, please make the office aware that this follow-up is from your recent emergency room visit. If for any reason you are refused follow-up, please contact the [facility] Emergency Department at and asked to speak to the emergency department charge nurse. Sepsis Event Note (ED) - Evaluation Sepsis Screening Result: No Definite Risk <Charlie Westfall - Last Filed: 02/12/21 10:59> Course - Vital Signs Last Recorded V/S: Last Vital Signs Temp 36.3 C 02/12/21 09:27 Pulse 67 02/12/21 10:39 Resp 18 02/12/21 10:39 BP 191/84 H 02/12/21 10:39 Pulse Ox 100 02/12/21 10:39 - Orders/Labs/Meds Meds: Medications Discontinued Medications Generic Name Dose Route Start Last Admin Trade Name Kathrine PRN Reason Stop Dose Admin Hydroxyzine HCl 25 mg 02/12/21 10:28 02/12/21 10:41 Hydroxyzine Hcl 25 Mg Tab PO 02/12/21 10:29 25 mg ONETIME STA Administration - Re-Assessments/Exams Free Text/Narrative Re-Assessment/Exam: 02/12/21 10:56 I reviewed the patient and examined them. I agree with the notes of the resident. I agree the patient had an anxiety attack and nothing further. His blood pressure trending down. He is on max dose of his 2 blood pressure medicines and needs primary to get involved to see if he needs to add a medicine. Departure - Departure Time of Disposition: 10:56 Condition: Good Sepsis Event Note (ED) - Focused Exam Vital Signs: Vital Signs Temp Pulse Resp BP Pulse Ox 02/12/21 10:39 67 18 191/84 H 100 02/12/21 09:27 36.3 C 72 20 194/90 H 95
--- NOTE | 2021-02-12 10:15 | CR ---
INDICATION: Chest pain related to trauma COMPARISON: None TECHNIQUE: Single-view study FINDINGS: TUBES AND LINES: None. HEART AND MEDIASTINUM: The heart size is normal. The mediastinal contour appears normal for patient age. LUNGS AND PLEURAL SPACES: The lungs appear normal.The pleural spaces are unremarkable. OSSEOUS STRUCTURES: Age-appropriate appearance. No acute focal finding.Vascular stent in the left axillary region IMPRESSION: No acute focal findings. Dictated by Karl Rai MD @ 02/12/2021 10:14:33 AM (Electronically Signed)
[2021-02-12] MEDS ORDERED: hydrOXYzine HCl 25 MG Tab PO STA (10:28)
[2021-02-12 10:40] VITALS: PULSE 67
[2021-02-12] MEDS ORDERED: cloNIDine 0.1 MG Tab PO ONE ×2 (11:11→12:08)
[2021-02-12 12:11] VITALS: BP 200/100
== END 2021-02-12 12:28 | disposition home or self-care (01) ==
LOC: MW.ED 09:22
DX: I13.2 Hypertensive heart and chronic kidney disease with heart failure and with stage 5 chronic kidney disease, or end stage renal disease (principal); E10.22 Type 1 diabetes mellitus with diabetic chronic kidney disease; N18.6 End stage renal disease; I50.9 Heart failure, unspecified; N17.9 Acute kidney failure, unspecified; F41.9 Anxiety disorder, unspecified; E66.9 Obesity, unspecified; Z68.30 Body mass index [BMI] 30.0-30.9, adult; Z99.2 Dependence on renal dialysis; Z79.82 Long term (current) use of aspirin; Z79.899 Other long term (current) drug therapy
CPT/HCPCS: 71045; 99283; A9270

== ENCOUNTER 2021-05-23 22:59 | Emergency (ER) | payer MEDICARE, MEDICAID ==
[2021-05-24 00:24] LABS: CARBON DIOXIDE,CO2 31.2 mmol/L (21.0-32.0); POTASSIUM,K 4.4 mmol/L (3.5-5.1)
[2021-05-24] MEDS ORDERED: Aspirin 81 MG Tab.Chew PO ONE (00:28)
[2021-05-24] MEDS ORDERED: Nitroglycerin 0.2 MG/HR Transdermal Patch TRDERM ONE (00:29)
[2021-05-24] MEDS ORDERED: hydrALAZINE 20 MG/ML SDV IVPUSH STA (00:29)
[2021-05-24 03:33] VITALS: PULSE 87
[2021-05-24 03:46] VITALS: BP 194/91
== END 2021-05-24 03:46 | disposition left against medical advice (07) ==
LOC: MW.ED 22:59
DX: I16.0 Hypertensive urgency (principal); R79.89 Other specified abnormal findings of blood chemistry; I12.9 Hypertensive chronic kidney disease with stage 1 through stage 4 chronic kidney disease, or unspecified chronic kidney disease; N18.9 Chronic kidney disease, unspecified; I50.9 Heart failure, unspecified; E10.22 Type 1 diabetes mellitus with diabetic chronic kidney disease; Z20.822 Contact with and (suspected) exposure to COVID-19; F41.9 Anxiety disorder, unspecified; F32.9 Major depressive disorder, single episode, unspecified; Z79.4 Long term (current) use of insulin; Z79.899 Other long term (current) drug therapy
CPT/HCPCS: 36415; 71045; 80053; 84484; 85025; 93005; 99285; A9270; J0360; U0002; 93010

== ENCOUNTER 2021-06-11 06:56 | Emergency (ER) | payer MEDICARE, MEDICAID ==
[2021-06-11] MEDS ORDERED: Sodium Chloride 0.9% 2.5 ML Syringe FLUSH PRN (07:11)
[2021-06-11] MEDS ORDERED: Sodium Chloride 0.9% 10 ML Syringe FLUSH PRN (07:11)
[2021-06-11] MEDS ORDERED: LORazepam 2 MG/ML SDV IVPUSH ONE (07:21)
[2021-06-11 08:01] LABS: CARBON DIOXIDE,CO2 27.7 mmol/L (21.0-32.0); POTASSIUM,K 4.3 mmol/L (3.5-5.1)
[2021-06-11 08:31] VITALS: PULSE 71
[2021-06-11 09:14] VITALS: BP 189/90
== END 2021-06-11 09:32 | disposition home or self-care (01) ==
LOC: MW.ED 06:56
DX: R07.9 Chest pain, unspecified (principal); F41.9 Anxiety disorder, unspecified; I12.0 Hypertensive chronic kidney disease with stage 5 chronic kidney disease or end stage renal disease; E10.22 Type 1 diabetes mellitus with diabetic chronic kidney disease; N18.6 End stage renal disease; E66.9 Obesity, unspecified; Z68.29 Body mass index [BMI] 29.0-29.9, adult; Z99.2 Dependence on renal dialysis; Z79.4 Long term (current) use of insulin; Z79.899 Other long term (current) drug therapy; Z79.82 Long term (current) use of aspirin
CPT/HCPCS: 36415; 71045; 80053; 84484; 85025; 93005; 96374; 99285; J2060; J3490

== ENCOUNTER 2022-04-13 08:47 | Emergency (ER) | payer MEDICAID, MEDICARE ==
[2022-04-13] MEDS ORDERED: cloNIDine 0.1 MG Tab PO ONE (10:02)
[2022-04-13 10:15] LABS: CARBON DIOXIDE,CO2 28.8 mmol/L (21.0-32.0); POTASSIUM,K 4.1 mmol/L (3.5-5.1)
[2022-04-13 10:23] LABS: CORONAVIRUS COVID-19 NAA NEGATIVE (NEGATIVE); INFLUENZA A NAA NEGATIVE (NEGATIVE); INFLUENZA B NAA NEGATIVE (NEGATIVE); RESPIRATORY SYNCYTIAL VIR NAA NEGATIVE (NEGATIVE)
[2022-04-13 11:06] VITALS: BP 193/87; PULSE 90
== END 2022-04-13 11:06 | disposition home or self-care (01) ==
LOC: MW.ED 08:47
DX: B34.9 Viral infection, unspecified (principal); E10.22 Type 1 diabetes mellitus with diabetic chronic kidney disease; I13.0 Hypertensive heart and chronic kidney disease with heart failure and stage 1 through stage 4 chronic kidney disease, or unspecified chronic kidney disease; N18.9 Chronic kidney disease, unspecified; I50.9 Heart failure, unspecified; E66.9 Obesity, unspecified; Z99.2 Dependence on renal dialysis; Z68.29 Body mass index [BMI] 29.0-29.9, adult; Z20.822 Contact with and (suspected) exposure to COVID-19
CPT/HCPCS: 0241U; 36415; 71046; 80053; 85025; 87040; 99283; A9270

== ENCOUNTER 2022-04-16 14:59 | Emergency (ER) | payer MEDICARE ==
[2022-04-16] MEDS ORDERED: Sodium Chloride 0.9% 10 ML Syringe FLUSH PRN (15:04)
[2022-04-16] MEDS ORDERED: Lactated Ringers 1,000 ML IV ONE (15:04)
[2022-04-16] MEDS ORDERED: Sodium Chloride 0.9% 2.5 ML Syringe FLUSH PRN (15:04)
[2022-04-16 15:51] LABS: CORONAVIRUS COVID-19 NAA NEGATIVE (NEGATIVE); INFLUENZA A NAA NEGATIVE (NEGATIVE); INFLUENZA B NAA NEGATIVE (NEGATIVE); RESPIRATORY SYNCYTIAL VIR NAA NEGATIVE (NEGATIVE)
[2022-04-16 16:03] LABS: POTASSIUM,K 6.4 mmol/L (3.5-5.1)
[2022-04-16 16:30] LABS: CARBON DIOXIDE,CO2 22.3 mmol/L (21.0-32.0)
[2022-04-16] MEDS ORDERED: Insulin Regular, Human 100 Units/ML 10 ML Vial IVPUSH ONE (16:47)
[2022-04-16] MEDS ORDERED: Glucagon,Human Recombinant 1 MG Vial IM PRN (16:47)
[2022-04-16] MEDS ORDERED: 50% Dextrose in Water 50 ML Syringe IVPUSH PRN (16:47)
[2022-04-16] MEDS ORDERED: Albuterol 0.083% 2.5 MG/3 ML Neb Soln NEB ONE (16:48)
[2022-04-16 18:41] LABS: CARBON DIOXIDE,CO2 25.8 mmol/L (21.0-32.0); POTASSIUM,K 6.3 mmol/L (3.5-5.1)
[2022-04-16] MEDS ORDERED: Sodium Polystyrene Sulfonate 15 GM/60 ML Susp 60 ML Bot PO ONE (19:14)
[2022-04-17] MEDS ORDERED: Sodium Polystyrene Sulfonate 15 GM/60 ML Susp 60 ML Bot PO ONE (00:01)
[2022-04-17 04:24] VITALS: BP 144/69; PULSE 81
== END 2022-04-17 04:45 | disposition home or self-care (01) ==
LOC: MW.ED 14:59
DX: E87.5 Hyperkalemia (principal); E10.22 Type 1 diabetes mellitus with diabetic chronic kidney disease; I13.0 Hypertensive heart and chronic kidney disease with heart failure and stage 1 through stage 4 chronic kidney disease, or unspecified chronic kidney disease; N18.9 Chronic kidney disease, unspecified; I50.9 Heart failure, unspecified; E66.9 Obesity, unspecified; Z68.30 Body mass index [BMI] 30.0-30.9, adult; Z20.822 Contact with and (suspected) exposure to COVID-19
CPT/HCPCS: 0241U; 36415; 80053; 82803; 82947; 83605; 83690; 83735; 84484; 85025; 85610; 93005; 99285; A9270; J1815; J3490; J7120; J7620-GY

== ENCOUNTER 2022-09-06 15:34 | Emergency (ER) | payer MEDICARE, OTHER ==
[2022-09-06] MEDS ORDERED: Sodium Chloride 0.9% 10 ML Syringe FLUSH PRN (16:50)
[2022-09-06] MEDS ORDERED: Sodium Chloride 0.9% 2.5 ML Syringe FLUSH PRN (16:50)
[2022-09-06 17:40] LABS: BASOPHILS ABSOLUTE AUTO 0.1 K/uL (0.0-0.1); BASOPHILS PERCENT AUTO 0.8 % (0.0-1.5); EOSINOPHILS ABSOLUTE AUTO 0.3 K/uL (0.0-0.7); EOSINOPHILS PERCENT AUTO 4.3 % (0.0-7.0); HEMATOCRIT 33.4 % (38.0-50.0); HEMOGLOBIN 11.1 g/dL (13.0-17.0); LYMPHOCYTES ABSOLUTE AUTO 1.1 K/uL (0.6-2.4); LYMPHOCYTES PERCENT AUTO 13.8 % (16.0-40.0); MEAN CORPUSCULAR HEMOGLOBIN 30.9 pg (27.0-32.0); MEAN CORPUSCULAR HGB CONC 33.2 g/dL (31.0-37.0); MONOCYTES ABSOLUTE AUTO 0.7 K/uL (0.0-0.8); MONOCYTES PERCENT AUTO 9.1 % (0.0-15.0); NEUTROPHILS ABSOLUTE AUTO 5.5 K/uL (1.4-5.7); NRBC ABSOLUTE 0 K/uL; PLATELET COUNT,PLT 220 K/uL (150-400); RED BLOOD CELL COUNT 3.59 M/uL (4.50-5.90); WHITE BLOOD CELL COUNT,WBC 7.68 K/uL (4.0-11.0)
[2022-09-06] MEDS ORDERED: Iopamidol 755 Mg/ML 100 ML Bottle IVPUSH ONE (17:44)
[2022-09-06 17:55] LABS: INR 1.1 (0.86-1.11); PTT,PARTIAL THROMBOPLSTIN TIME 27.9 SEC (23.9-30.7)
[2022-09-06 18:07] LABS: LACTIC ACID 0.9 mmol/L (0.4-2.0)
[2022-09-06 18:11] LABS: A/G RATIO 1.2 (0.9-1.6); ALANINE AMINOTRANSFERASE,ALT 8 IU/L (14-63); ALBUMIN 3.9 g/dL (3.4-5.0); ALKALINE PHOSPHATASE 70 U/L (46-116); ASPARTATE AMNIOTRANSFERASE,AST 16 IU/L (15-37); BILIRUBIN TOTAL 0.6 mg/dL (0.2-1.0); BLOOD UREA NITROGEN,BUN 44 mg/dL (7.0-18.0); CALCIUM 9.8 mg/dL (8.5-10.1); CARBON DIOXIDE,CO2 25.8 mmol/L (21.0-32.0); CHLORIDE,CL 100 mmol/L (98-107); CREATINE KINASE,CK 128 U/L (26-308); CREATININE 12.6 mg/dL (0.8-1.3); EST CRCL DRUG DOSING (CG) 5.17 mL/min; ETHANOL BLOOD MEDICAL <3 mg/dL; GLUCOSE RANDOM 218 mg/dL (74-106); LIPASE 92 U/L (73-393); MAGNESIUM 2.4 mg/dL (1.8-2.4); POTASSIUM,K 6.1 mmol/L (3.5-5.1); PROTEIN TOTAL,TP 7.1 g/dL (6.4-8.2); SODIUM,NA 142 mmol/L (136-148); TSH ULTRASENSITIVE 2.31 uIU/mL (0.36-3.74)
[2022-09-06 18:12] LABS: ESTIMATED GFR 4 mL/min (>60)
[2022-09-06 19:26] VITALS: BP 207/94; PULSE 67
== END 2022-09-06 19:26 | disposition home or self-care (01) ==
LOC: MW.ED 15:34
DX: R26.89 Other abnormalities of gait and mobility (principal); E78.00 Pure hypercholesterolemia, unspecified; I12.9 Hypertensive chronic kidney disease with stage 1 through stage 4 chronic kidney disease, or unspecified chronic kidney disease; E11.22 Type 2 diabetes mellitus with diabetic chronic kidney disease; N18.6 End stage renal disease; Z99.2 Dependence on renal dialysis; Z79.82 Long term (current) use of aspirin; Z79.4 Long term (current) use of insulin; Z79.899 Other long term (current) drug therapy
CPT/HCPCS: 36415; 70450; 71260; 72125; 74177; 80053; 80307; 82140; 82550; 83605; 83690; 83735; 84443; 84484; 85025; 85610; 85730; 93005; 99285; J3490; Q9967; 93010; 99283

== ENCOUNTER 2022-10-07 05:56 | Emergency (ER) | payer MEDICAID, MEDICARE ==
[~2022-10-07 05:56] MED LIST changes: +Amiodarone 150 MG/3 ML SDV IV ONE; +Calcium Chloride 10% 1 GM/10 ML Syringe IV ONE; +EPINEPHrine 1:10,000 1 MG/10 ML Syringe IV ONE; +EPINEPHrine 1:10,000 1 MG/10 ML Syringe IVPUSH STA; +Etomidate 2 MG/ML 20 ML SDV IVPUSH STA; +Rocuronium 100 MG/10 ML MDV IV ONE; +Rocuronium 50 MG/5 ML Vial IV STA; +Sodium Bicarbonate 8.4% 50 MEQ/50 ML Syringe IV ONE; +Sodium Bicarbonate 8.4% 50 MEQ/50 ML Syringe IVPUSH STA
[2022-10-07] MEDS ORDERED: EPINEPHrine 1:10,000 1 MG/10 ML Syringe IVPUSH STA ×2 (05:57→06:11)
[2022-10-07] MEDS ORDERED: EPINEPHrine 1:10,000 1 MG/10 ML Syringe IV ONE ×2 (05:58→06:12)
[2022-10-07] MEDS ORDERED: Norepinephrine Bit/D5W Premix 250 ML IV ONE (05:59)
[2022-10-07] MEDS ORDERED: Sodium Chloride 0.9% 2.5 ML Syringe FLUSH PRN (06:01)
[2022-10-07] MEDS ORDERED: Sodium Chloride 0.9% 10 ML Syringe FLUSH PRN (06:01)
[2022-10-07] MEDS ORDERED: Sodium Chloride 0.9% 1,000 ML IV ONE ×2 (06:01→06:39)
[2022-10-07] MEDS ORDERED: Calcium Chloride 10% 1 GM/10 ML Syringe IVPUSH STA (06:03)
[2022-10-07] MEDS ORDERED: Calcium Chloride 10% 1 GM/10 ML Syringe IV ONE (06:04)
[2022-10-07] MEDS ORDERED: Sodium Bicarbonate 8.4% 50 MEQ/50 ML Syringe IVPUSH STA (06:12)
[2022-10-07] MEDS ORDERED: Sodium Bicarbonate 8.4% 50 MEQ/50 ML Syringe IV ONE (06:14)
[2022-10-07] MEDS ORDERED: Norepinephrine Bit/D5W Premix 250 ML IV SCH (06:14)
[2022-10-07 06:23] LABS: BASOPHILS ABSOLUTE AUTO 0.1 K/uL (0.0-0.1); BASOPHILS PERCENT AUTO 0.4 % (0.0-1.5); EOSINOPHILS PERCENT AUTO 0.2 % (0.0-7.0); HEMATOCRIT 38.7 % (38.0-50.0); HEMOGLOBIN 12.1 g/dL (13.0-17.0); LYMPHOCYTES ABSOLUTE AUTO 3.6 K/uL (0.6-2.4); MEAN CORPUSCULAR HEMOGLOBIN 30.1 pg (27.0-32.0); MEAN CORPUSCULAR HGB CONC 31.3 g/dL (31.0-37.0); MEAN CORPUSCULAR VOLUME 96.3 fL (80.0-98.0); MONOCYTES ABSOLUTE AUTO 1.7 K/uL (0.0-0.8); MONOCYTES PERCENT AUTO 8.6 % (0.0-15.0); NEUTROPHILS ABSOLUTE AUTO 14.5 K/uL (1.4-5.7); NEUTROPHILS PERCENT AUTO 72.8 % (48.0-80.0); NRBC ABSOLUTE 0 K/uL; NRBC PERCENT 1.2 /100WBC; PLATELET COUNT,PLT 130 K/uL (150-400); RED BLOOD CELL COUNT 4.02 M/uL (4.50-5.90); WHITE BLOOD CELL COUNT,WBC 19.85 K/uL (4.0-11.0)
[2022-10-07] MEDS ORDERED: propofoL 100 ML ONE (06:28)
[2022-10-07 06:32] LABS: BASE EXCESS VENOUS -9.7 (-2.0-3.0); PH,VENOUS 7.23 (7.31-7.41)
[2022-10-07] MEDS ORDERED: propofoL 100 ML IV SCH (06:32)
[2022-10-07 07:09] LABS: BICARBONATE,ARTERIAL 17 mEq/L (22-26); PCO2 ARTERIAL 44 mmHG (35-45); PO2 ARTERIAL 98 mmHG (80-105)
[2022-10-07 07:13] VITALS: BP 182/112; PULSE 123
[2022-10-07] MEDS ORDERED: Aspirin 81 MG Tab.Chew PO ONE ×2 (07:26→08:16)
[2022-10-07] MEDS ORDERED: Heparin Sodium 5,000 Units/ML Vial IVPUSH ONE (07:27)
[2022-10-07] MEDS ORDERED: Heparin Sodium/0.45% NaCl 500 ML IV SCH (07:30)
[2022-10-07] MEDS ORDERED: Cefepime 2 GM in Sodium Chloride 0.9% 50 ML IV ONE (08:02)
[2022-10-07 08:13] LABS: A/G RATIO 0.9 (0.9-1.6); ALANINE AMINOTRANSFERASE,ALT 607 IU/L (14-63); ALBUMIN 3.4 g/dL (3.4-5.0); ALKALINE PHOSPHATASE 82 U/L (46-116); ASPARTATE AMNIOTRANSFERASE,AST 692 IU/L (15-37); BILIRUBIN TOTAL 1.7 mg/dL (0.2-1.0); BLOOD UREA NITROGEN,BUN 97 mg/dL (7.0-18.0); CALCIUM 10.3 mg/dL (8.5-10.1); CARBON DIOXIDE,CO2 21.7 mmol/L (21.0-32.0); CHLORIDE,CL 104 mmol/L (98-107); CREATININE 15.6 mg/dL (0.8-1.3); GLUCOSE RANDOM 106 mg/dL (74-106); MAGNESIUM 2.7 mg/dL (1.8-2.4); PHOSPHORUS 8.1 mg/dL (2.6-4.7); PROTEIN TOTAL,TP 7.2 g/dL (6.4-8.2); SODIUM,NA 147 mmol/L (136-148)
[2022-10-07 08:19] LABS: ESTIMATED GFR 3 mL/min (>60); ETHANOL BLOOD MEDICAL < 3.0 mg/dL; POTASSIUM,K 7.8 mmol/L (3.5-5.1)
[2022-10-07] MEDS ORDERED: Glucagon,Human Recombinant 1 MG Vial IM PRN (08:26)
[2022-10-07] MEDS ORDERED: Albuterol 0.083% 2.5 MG/3 ML Neb Soln NEB ONE (08:26)
[2022-10-07] MEDS ORDERED: 50% Dextrose in Water 50 ML Syringe IVPUSH ONE (08:26)
[2022-10-07] MEDS ORDERED: 50% Dextrose in Water 50 ML Syringe IVPUSH PRN (08:26)
[2022-10-07] MEDS ORDERED: Insulin Regular, Human 100 Units/ML 10 ML Vial IVPUSH ONE (08:26)
[2022-10-07] MEDS ORDERED: Furosemide 40 MG/4 ML VIAL IVPUSH ONE (08:27)
[2022-10-07] MEDS ORDERED: Albuterol 0.083% 2.5 MG/3 ML Neb Soln ONE (08:45)
== END 2022-10-07 09:06 ==
LOC: MW.ED 05:56
DX: I46.9 Cardiac arrest, cause unspecified (principal); I21.3 ST elevation (STEMI) myocardial infarction of unspecified site; E87.5 Hyperkalemia; I12.0 Hypertensive chronic kidney disease with stage 5 chronic kidney disease or end stage renal disease; E11.22 Type 2 diabetes mellitus with diabetic chronic kidney disease; N18.6 End stage renal disease; E78.00 Pure hypercholesterolemia, unspecified; Z99.2 Dependence on renal dialysis; Z79.82 Long term (current) use of aspirin; Z79.4 Long term (current) use of insulin; Z79.899 Other long term (current) drug therapy
CPT/HCPCS: 36415; 36600; 70450; 71045; 80053; 80307; 82803; 82947; 83605; 83735; 84100; 84484; 85025; 85730; 93005; 94640; 96365; 96368; 96375; 99285; A9270; J0171; J0282; J0692; J1644; J1940; J2704; J3490; 31500; 93010; 99291; J1815-GY; J7620-GY